=== PATIENT | female | born 1950 | race Caucasian/White ===

== ENCOUNTER 2025-04-07 08:29 | Outpatient (REF) | payer MEDICARE, SELFPAY ==
--- OUTSIDE RECORDS SUMMARY | 2024-12-08 09:15 | XMS_ITS ---
Author Organization Felicitas Mckeon MD Address [address] [phone] Care Team Providers Care Fast Food Restaurant Manager Name Role Phone Felicitas Mckeon Primary Care Provider REASON FOR VISIT 2m f/u MOCA Encounters Encounter Location Date Provider Diagnosis Felicitas Mckeon MD [address] [place] [address] [place] [phone] 12/08/2024 Felicitas Mckeon Plan Of Treatment Next Appt Details Provider Name:Felicitas Mckeon , 06/07/2025 01:30:00 PM, [address] [place] [address], [phone], Provider Name:Felicitas Mckeon , 06/29/2025 02:00:00 PM, [address] [place] [address], [phone], Provider Name:Felicitas Mckeon , 09/27/2025 01:00:00 PM, [address] [place] [address], [phone], Progress Notes * Bella OSEGUERAB:1950 ( 74 yo F)Acc No.[id number]:12/08/2024 Patient: Amanda PEREZ Provider: Heather Mckeon MD :1950 A ge:74 Y S ex:Female Date:12/08/2024 Address:[address] [place], [place] [id number] Subjective: * Chief Complaints: * 1 . [...] Electronic signature of Dorothy Mckeon MD on 04/08/2025 at 08:56 AM EST Sign off status: Pending * Provider: Heather Mckeon MD Date: 0 12/08/2024 Generated for Teo newman/Judah/Rocco on: 06/08/2024 08:56 AM EST
--- NOTE | ~2025-04-07 | XR_ITS ---
EXAMINATION: X-ray bilateral knees CLINICAL INFORMATION: Pain COMPARISON: None TECHNIQUE: Bilateral knees each 3 views FINDINGS: Right knee: Bone mineralization is decreased. Mild-moderate medial compartment arthritis. No visible acute fracture, dislocation or suspicious bony lesion. Small effusion. Left knee: Bone mineralization is decreased. Mild/moderate medial compartment arthritis. No visible acute fracture, dislocation or suspicious bony lesion. Small suprapatellar joint fluid. No abnormal soft tissue calcification. XR/XR Knee Elder 3V IMPRESSION: Right knee: Mild-moderate medial compartment arthritis Left knee: Mild-moderate medial compartment arthritis Electronically signed by: Jovi Sawyer MD 04/08/2025 11:50 AM EST
--- OUTSIDE RECORDS SUMMARY | 2025-04-08 08:55 | XMS_ITS | Patient Health Record ---
Author Organization [facility] Address [address] [place] [phone] Care Team Providers Care Scrap Drop Engineer Name Role Phone LEONIE HERNANDEZ MD Primary Care Provider Unavail able Susan Mendoza Unavailable [phone] Allergies Allergen (clinical drug ingredient) Drug/Non Drug Allergy documented on EMR Reaction Allergy Type Onset Date Status Substance with sulfonamide structure and antibacterial mechanism of action (substance) SULFA (uncoded) Unknown Allergy Active Reason For Referral No Information Medications Medication SIG (Take, Route, Frequency, Duration) Notes Start Date End Date Status Metoprolol Succinate ER 25 MG ER 1 ORAL daily; Duration: -3 [facility] 10/06/2012 Active Fish Oil 1200MG 1 ORAL daily; Durati on: [facility] 10/06/2012 Active Lisinopril 2.5MG 1 ORAL daily; Durati on: - [facility] 10/06/2012 Active Vitamin B12 100 MCG Orally Active ALPRAZolam 0.50MG 1 ORAL twice daily; Duration: 10 [facility] 10/06/2012 Active Estrace 0.1 MG/GM 1 GRAM Vaginal TWICE A WEEK; Duration: 365 days For PE's 10/07/2014 Active Aspirin EC 81MG 1 ORAL daily; Durati on: - [facility] 10/06/2012 Active Wellbutrin XL 1 tablet in the morn ing Orally Once a day Active PARoxetine HCl 20 MG 1 tablet in the mor rayna Orally Once a day Active Cinnamon 500 MG 2 Orally DAILY Active Atorvastatin Calcium 80 MG 1 tablet Oral ly Once a day Active Vitamin C 500MG 1 ORAL twice daily; Duration: -3 [facility] 10/06/2012 Active Milk Thistle 1000 MG Orally Active Vitamin D3 1000 IU ORAL daily; Duration : - [facility] 10/06/2012 Active Turmeric Curcumin 500 MG Orally Active Multivitamins 1 ORAL daily; Durati on: -3 [facility] 10/06/2012 Active Rosuvastatin Calcium 20 MG 1 tablet Oral ly Once a day Active NexIUM 50 MG 1 ORAL prn [facility] 10/06/2012 Activ e Super B Complex Acti ve buPROPion HCl ER (SR) 200 MG 1 tablet Orally Twice a day Active Problems Problem Type SNOMED Code ICD Code Onset Dates Problem Status W/U Status Risk Notes Problem Postmenopausal atrophic vaginitis (09787133) Postmenopausal atrophic vaginitis (N95.2) Active confirmed Problem Age-related osteoporosis (372737499) Age-related osteoporosis without current pathological fracture (M81.0) Active confirmed Problem Hyperlipidemia (60903191) Other and unspecified hyperlipidemia (272.4) Active confirmed Major Problem Depressive disorder (99364055) Depressive disorder, not elsewhere classified (311) Active confirmed Major Problem Benign essential hypertension (9641000) Essential hypertension, benign (401.1) Active confirmed Major Problem Acute myocardial infarction (disorder) (83851126) Acute myocardial infarction, unspecified site (410.9) Active confirmed Diag Problem Chronic ischemic heart disease (668876806) Unspecified chronic ischemic heart disease (414.9) Active confirmed Major Problem Osteoporosis (42968887) Unspecified osteoporosis (733.00) Active confirmed Diag Problem Gynecological examination normal (315918448204577) Routine gynecological examination (V72.31) Active confirmed Problem Screening for malignant neoplasm of colon (913376474) Special screening for malignant neoplasms, colon (V76.51) [...] MEDICARE [address] [place] [id number] [phone] [id number] SHARON TRINIDAD Self - patient is the insured [employer] [address] [place] [address] [phone] [id number] SHARON TRINIDAD Self - patient is the insured Medical (General) History Medical History History ICD Code Acute myocardial infarction, unspecified site 410.9 Unspecified osteoporosis 733.00 Unspecified chronic ischemic heart disea se 414.9 Depressive disorder, not elsewhere class ified 311 Other and unspecified hyperlipidemia 272 .4 Essential hypertension, benign 401.1 Surgical History Surgery Date(Month/Year) Cholecystectomy Colonoscopy Colon Resection Right Ankle Fracture [place] [facility] Hospitalization History Reason Date(Month/Year) See Surgical Hx
--- OUTSIDE RECORDS SUMMARY | 2025-04-08 08:55 | XMS_ITS | Clinical Summary ---
Author Organization [facility] Address [address] [place] [address] Phone Care Team Providers Care Fertilizing Machine Operator Name Role Phone Felicitas Mckeon MD Primary Care Provider [phone] Surgical History Surgery Date Site/Laterality Comments ANKLE FRACTURE SURGERY PROCEDURE:ANKLE FRACTURE SURGERY CHOLECYSTECTOMY PROCEDURE:CHOLECYSTECTOMY Medical History Medical History Date Comments Diabetes mellitus (CMS/HCC V24, CMS/HCC V28) DX:Diabetes mellitus (HCC) Heart disease DX:Heart disease Hypertension DX:Hypertension Osteoporosis DX:Osteoporosis Diverticulitis DX:Diverticuliti s Family History Medical History Relation Name Comments Hyperlipidemia Brother Hypertension Brother Heart disease Father Hyperlipidemia Father Hypertension Father Heart disease Mother Hyperlipidemia Mother Hypertension Mother Breast cancer Niece Relation Name Status Comments Brother Father Mother Niece Alive Social History Tobacco Use Types Packs/Day Years Used Date Smoking Tobacco: Never Smokeless Tobacco: Never Alcohol Use Standard Drinks/Week Comments No 0 (1 standard drink = 0.6 oz pur e alcohol) Comments No Sex and Gender Information Value Date Recorded Sex Assigned at Not on file Legal Sex Female 11:34 PM EST Gender Identity Not on file Sexual Orientation Not on file Obstetrics History Last Filed Vital Signs Vital Sign Reading Time Taken Comments Blood Pressure - - Pulse - - Temperature - - Respiratory Rate - - Oxygen Saturation - - Inhaled Oxygen Concentration - - Weight 74.8 kg (165 lb) 04/23/2024 2:39 PM EST Height 154.9 cm (5' 1 ) 04/23/2024 2:39 PM EST Body Mass Index 31.18 04/23/2024 2:39 PM EST Plan of Treatment Health Maintenance Due Date Last Done Comments Colorectal Cancer Screening: Colonoscopy 1950 DTaP,Tdap,and Td Vaccines (1 - Tdap) 1969 Zoster Vaccines (1 of 2) 2000 Falls Risk Assessment 05/06/2022 Hepatitis C Screening 05/06/2022 Medicare Annual Wellness Visit 05/06/2022 Social Influencers of Health Screening 05/06/2022 Depression Screening 06/03/2024 COVID-19 Vaccine ( season) 2025 03/07/2023, 03/16/2022, 10/09/2021, Additional history exists Influenza Vaccine (#1) 2025 , 03/07/2023, 03/16/2022, Additional history exists Breast Cancer Screening 04/23/2026 04/23/20 24, 01/08/2023, 10/04/2021, Additional history exists Osteoporosis Screening (Bone Density Screening) 04/23/2034 04/23/2024, 12/26/2021, 12/25/2019, Additional history exists Pneumococcal Vaccine: 50+ Years Completed 05/10/2023 RSV Immunization Adult Patients Completed 05/10/2023 HIB Vaccines Aged Out No longer eligi ble based on patient's age to complete this topic HPV Vaccines Aged Out No longer eligi ble based on patient's age to complete this topic Hepatitis A Vaccines Aged Out No long er eligible based on patient's age to complete this topic Hepatitis B Vaccines Aged Out No long er eligible based on patient's age to complete this topic IPV Vaccines Aged Out No longer eligi ble based on patient's age to complete this topic MMR Vaccines Aged Out No longer eligi ble based on patient's age to complete this topic Meningococcal ACWY Vaccine Aged Out N o longer eligible based on patient's age to complete this topic Meningococcal B Vaccine Aged Out No l onger eligible based on patient's age to complete this topic RSV Immunization Patients Under 20 months Aged Out No longer eligible based on patient's age to complete this topic Varicella Vaccines Aged Out No longer eligible based on patient's age to complete this topic Procedures Procedure Name Priority Date/Time Associated Diagnosis Comments MG MAMMO DIGITAL SCREENING W NOE BILAT Routine 04/23/2024 3:00 PM EST Encounter for screening mammogram for breast cancer BD BONE DENSITY DXA AXIAL SKELETON Routine 04/23/2024 2:38 PM EST Osteoporosis screening from Last 3 Months or Most Recently Relevant to Health Maintenance Results * MG Mammo Digital Screening w Noe bilat (04/23/2024 3:00 PM EST) Anatomical Region Laterality Modality Breast Bilateral Mammography 04/23/2024 5:32 PM EST Impressions 04/23/2024 5:37 PM EST No mammographic evidence of malignancy. No suspicious [...] Signed Date: 04/23/2024 17:37 ET Workstation ID: [id number] Transcribed By: Self Edit Transcribed Date: 04/23/2024 17:32 ET Narrative 04/23/2024 5:37 PM EST EXAM: SCREENING MAMMOGRAPHY, BILATERAL HISTORY: SCREENING. No additional history. COMPARISON: 01/08/2023, 10/04/2021, 12/17/2019 TECHNIQUE: Synthesized CC and MLO projections of each breast. Tomosynthesis of each breast in the CC and MLO projections. ADDITIONAL IMAGING: None Computer-aided detection was employed with the iCAD profound AI 3-D. TISSUE DENSITY: There are scattered areas of fibroglandular density. (BI-RADS category B) FINDINGS: RIGHT BREAST: No suspicious mass. No suspicious calcification. No distortion. No additional suspicious right breast findings LEFT BREAST: No suspicious mass. No suspicious calcification. No distortion. No additional suspicious left breast findings Procedure Note Ervin Nicole MD - 04/23/2024 EXAM: SCREENING MAMMOGRAPHY, BILATERAL HISTORY: SCREENING. No additional history. COMPARISON: 01/08/2023, 10/04/2021, 12/17/2019 TECHNIQUE: Synthesized CC and MLO projections of each breast.Tomosynthesis of each breast in the CC and MLO projections. ADDITIONAL IMAGING: None Computer-aided detection was employed with the iCAD profound AI 3-D. TISSUE DENSITY: There are scattered areas of fibroglandular density.(BI-RADS category B) FINDINGS: RIGHT BREAST: No suspicious mass. No suspicious calcification. No distortion. Noadditional suspicious right breast findings LEFT BREAST: No suspicious mass. No suspicious calcification. No distortion. Noadditional suspicious left breast findings IMPRESSION: No mammographic evidence of malignancy. No suspicious interval change. A negative mammogram in the presence of a clinically suspicious palpableabnormality does not preclude the possibility of malignancy or alter theindications for biopsy. ASSESSMENT: BI-RADS 1: NEGATIVE RECOMMENDATION(S): 1: Routine screening mammogram BILATERAL in 1 year. -------- FINAL REPORT -------- Dictated By: Ervin Nicole Dictated Date: 04/23/2024 17:32 ET Assigned Physician: Ervin Nicole Reviewed and Electronically Signed By: Ervin Nicole Signed Date: 04/23/2024 17:37 ET Workstation ID: [id number] Transcribed By: Self Edit Transcribed Date: 04/23/2024 17:32 ET us Felicitas Mckeon MD IMG BI PROCEDURES Final Result * BD Bone Density DXA Axial Skeleton (04/23/2024 2:38 PM EST) Anatomical Region Laterality Modality Wrist, Hip, L-spine Bone Densito metry 04/24/2024 7:28 AM EST Impressions 04/24/2024 7:30 AM EST 1. Osteoporosis. There has been a decrease [...] probability of hip fracture of 6.7%. Code [address]74 [facility] Teleradiology -------- FINAL REPORT -------- Dictated By: Frederick Carson Dictated Date: 04/24/2024 07:28 ET Assigned Physician: Frederick Carson Reviewed and Electronically Signed By: Frederick Carson Signed Date: 04/24/2024 07:30 ET Workstation ID: [id number] Transcribed By: Self Edit Transcribed Date: 04/24/2024 07:28 ET Narrative 04/24/2024 7:30 AM EST HISTORY: The patient is a 73-year-old postmenopausal [...] that of the left femoral neck is -2.9 which is diagnostic of osteoporosis. Procedure Note Frederick Carson MD - 04/24/2024 HISTORY: The patient is a 73-year-old postmenopausal female with clinicalconcern for metabolic bone disease. FINDINGS: Dual energy x-ray absorptiometry of the lumbar spine and femursis performed. The mean bone mineral density at L1-2 is 0.927 gm/cm2 whichis 80% of that of young normals and 93% of that of age matched controls.This yields a T-score of -2.0 and a Z-score of -0.6 which is diagnostic ofosteopenia. The mean bone mineral density of the femurs bilaterally is 0.794 gm/nl0pdfct is 79% of that of young normals and 96% of that of age matchedcontrols. This yields a T-score of -1.7 and a Z-score of -0.3 which isdiagnostic of osteopenia. However, the T-score of the right femoral neckis -2.5 and that of the left femoral neck is - 2.9 which is diagnostic ofosteoporosis. IMPRESSION: 1. Osteoporosis. There has been a decrease of 4.4% in bone mineraldensity in the lumbar spine since the prior examination of 12/26/2021.There has been decrease of 1.1% in bone mineral density in the right femurand a decrease of 3.7% in bone mineral density in the left femur. 2. FRAX analysis yields a 10-year probability of major osteoporoticfracture of 23.4% and a 10-year probability of hip fracture of 6.7%. Code [address] CT Teleradiology -------- FINAL REPORT -------- Dictated By: Frederick Carson Dictated Date: 04/24/2024 07:28 ET Assigned Physician: Frederick Carson Reviewed and Electronically Signed By: Frederick Carson Signed Date: 04/24/2024 07:30 ET Workstation ID: [id number] Transcribed By: Self Edit Transcribed Date: 04/24/2024 07:28 ET Felicitas Mckeon MD IM DXA PROCEDURES Final Resul t from Last 3 Months or Most Recently Relevant to Health Maintenance Insurance MEDICARE [facility] Care Teams Fertilizing Machine Operator Relationship Specialty Start Date End Date Felicitas Mckeon MD [address] [address] PCP - General Internal Medicine 04/21/24
--- OUTSIDE RECORDS SUMMARY | 2025-04-08 08:56 | XMS_ITS | Patient Health Record ---
Author Organization [facility] Address [address] [place] [address] [phone] Care Team Providers Care Sfdc Solution Architect Name Role Phone [facility] Mc[facility] Primary Care Provider Julianna Tracy Unavailable [phone] Allergies Allergen (clinical drug ingredient) Drug/Non Drug Allergy documented on EMR Reaction Allergy Type Onset Date Status Substance with sulfonamide structure and antibacterial mechanism of action (substance) Sulfa Antibiotics Unknown Drug Allergy Active Results Component Value Reference Range Notes Phosphatidylethanol (PEth)-7 28503 Reviewed date:10/01/2024 06:16:45 PM Interpretation: Performing Lab:[facility], [address] [place] [address], [place], Phone - [phone], Director - Aneesh Notes/Report: Test(s) 161648-Wrajinycncq, Total; 739131-Efeiytimebchg; 371764-XQG-V was developed and its performance characteristics determined by [facility]. It has not been cleared or approved by the Food and Drug Administration. PHOSPHATIDYLETHANOL Negative Phosphatidylethanol (PEth) Negative Analyzed compound: PEth 16:0/18:1. 4-mrwykzqhv-6-oleoyl-sn-g spilwi-6-nrqoeofgyitlpa. Analysis performed by Liquid Chromatography with Tandem [...] developed and its performance characteristics determined by [facility]. It has not been cleared or approved by the Food and Drug Administration. Comp. Metabolic Panel (14)-3 52041 Reviewed date:10/01/2024 06:16:45 PM Interpretation: Performing Lab:[facility] [place], [address], [place], Phone - [phone], Director - WVAydin Notes/Report: Test(s) 488017-Qbevwealcrh, Total; 680692-Gmlbwnzkyukag; 761655-YKK-R was developed and its performance characteristics determined by [facility]. It has not been cleared or approved [...] ALT (SGPT) 21 0-32 IU/L Albumin/Creatinine Ratio,Uri ne-206723 Reviewed date:10/01/2024 06:16:45 PM Interpretation: Performing Lab:[facility] [place], [address], [place], Phone - [phone], Director - Aneesh Notes/Report: Test(s) 936140-Hfsdtquhrzh, Total; 225234-Bsvndgwharoor; 902265-FBM-M was developed and its performance characteristics determined by [facility]. It has not been cleared or approved by the Food and Drug Administration. Creatinine, Urine 60.5 Not Estab. mg/dL Albumin, Urine <3.0 Not Estab. ug/mL Alb/Creat Ratio <5 0-29 mg/g creat Normal: 0 - 29 Moderately increased: 30 - 300 Severely increased: >300 Lipid Panel+ApoB-704055 Reviewed date:10/01/2024 06:16:45 PM Interpretation: Performing Lab:[facility] [place], [address] [place] [address], Phone - [phone], Director - [facility] Notes/Report: Test(s) 128806-Qgdomqzhtjz, Total; 805365-Fzmrhcdprodpt; 920482-AGJ-A was developed and its performance characteristics determined by [employer]. It has not been cleared or approved [...] Risk <90 Moderate Risk <90 Vitamin D, 60-Rkzollj-436611 Reviewed date:10/01/2024 06:16:45 PM Interpretation: Performing Lab:[facility] [place], [address] [facility], [place], Phone - [phone], Director - [facility] Notes/Report: Test(s) 257886-Viotydabrxp, Total; 517994-Jcwoogafwaviq; 453612-HTX-R was developed and its performance characteristics determined by [employer]. It has not been cleared or approved by the Food and Drug Administration. Vitamin D, 25-Hydroxy 68.2 30.0-100.0 ng/mL Vitamin D deficiency has been defined by the [place] [employer] and an Endocrine Society practice guideline as a level of serum 25-OH vitamin D less than 20 ng/mL (1,2). The Endocrine Society went on to further define vitamin D insufficiency as a level between 21 and 29 ng/mL (2). 1. IOM ([place] [employer]). 2010. Dietary reference intakes for calcium and D. [place]: The National Academies Press. 2. Jennifer MF, Dalia NC, Frank BISWAS, et al. Evaluation, treatment, and prevention of vitamin D deficiency: an Endocrine Society clinical practice guideline. JCEM. 2010; 96(7):1911-30. CBC With Differential/Platel et-521147 Reviewed date:10/01/2024 06:16:45 PM Interpretation: Performing Lab:[facility] [place], [address] [place] [address] Avenue, [place], Phone - [phone], Director - Aneesh Notes/Report: Test(s) 475345-Gydjynvjhpc, Total; 960275-Iztiduuaizuyt; 967783-CCJ-U was developed and its performance characteristics determined by [facility]. It has not been cleared or approved [...] Immature Grans (Abs) 0.0 0.0-0.1 x10E3/uL Urinalysis, Complete-896185 Reviewed date:10/01/2024 06:16:44 PM Interpretation: Performing Lab:[facility] [place], [address] [facility], [place], Phone - [phone], Director - Aneesh Notes/Report: Test(s) 998158-Sszapxyhmax, Total; 180603-Sjwcmyerhoadg; 449402-UNB-A was developed and its performance characteristics determined by [facility]. It has not been cleared or approved by the Food and Drug Administration. Test(s) 608434-Bbbljqqthxa, Total; 382448-Fwxsejntcdmmy; 082450-LGC-U was developed and its performance characteristics determined by [facility]. It has not been cleared or approved by the Food and Drug Administration. Specific [place] 1.026 1.005-1.030 pH 6.0 5.0-7.5 Urine-Color Yellow [...] 03:03:57 PM Interpretation: Performing Lab: Notes/Report: [facility] ([facility]), [facility] Lot: [id number] Respiratory Panel w/ SARS-Co V2-253980 Reviewed date:07/31/2024 07:09:41 AM Interpretation: Performing Lab:[facility] [place], [address] [facility] [place], [place], Phone - [phone], Director - Aneesh Notes/Report: Clinical Information:SRC: Adenovirus [...] Detected Mycoplasma pneumoniae Not Detected Not Detected IMGEAP Reviewed date:07/27/2024 09:17:04 PM Interpretation: Performing Lab: Notes/Report: See Note [facility], a member of [facility] XR CHEST 2 VIEWS INDICATION: Pain [...] Signed Date: 07/27/2024 10:19 ET Workstation ID: [id number] Transcribed By: Self Edit Transcribed Date: 07/27/2024 10:19 ET CR Chest Routine 2 Views Reviewed date:07/27/2024 02:49:44 PM Interpretation: Performing Lab: Notes/Report: Hemoglobin A1C Reviewed date:06/29/2024 06:23:00 PM Interpretation: Performing Lab: Notes/Report: [facility] [place] ([facility]), Felicitas Mckeon MD Lot: [id number] Urinalysis, Complete-795525 Reviewed date:07/01/2024 05:09:37 PM Interpretation: Performing Lab:[facility] [place], [address] [address], [place], Phone - [phone], Director - Aneesh Notes/Report: Specific [place] 1.021 1.005-1.030 pH 6.0 5.0-7.5 Urine-Color Yellow [...] Bacteria None seen None seen/Few Vitamin D, 26-Vlqgybx-528742 Reviewed date:07/01/2024 05:09:37 PM Interpretation: Performing Lab:[facility] [place], [address] [place] [address], Phone - [phone], Director - Aneesh Notes/Report: Vitamin D, 25-Hydroxy 45.1 30.0-100.0 ng/mL Vitamin D deficiency has been defined by the [place] and an Endocrine Society practice guideline as a level of serum 25-OH vitamin D less than 20 ng/mL (1,2). The Endocrine Society went on to further define vitamin D insufficiency as a level between 21 and 29 ng/mL (2). 1. IOM ([place] [employer]). 2010. Dietary reference intakes for calcium and D. [place]: The National Academies Press. 2. Jennifer MF, Dalia NC, Frank BISWAS, et al. Evaluation, treatment, and prevention of vitamin D deficiency: an Endocrine Society clinical practice guideline. JCEM. 2010; 96(7):1911-30. Albumin/Creatinine Ratio,Uri ne-654933 Reviewed date:07/01/2024 05:09:37 PM Interpretation: Performing Lab:[facility] [place], [address] [place] [address], Phone - [phone], Director - Aneesh Notes/Report: Creatinine, Urine 42.4 Not Estab. mg/dL Albumin, Urine <3.0 Not Estab. ug/mL Alb/Creat Ratio <7 0-29 mg/g creat Normal: 0 - 29 Moderately increased: 30 - 300 Severely increased: >300 Comp. Metabolic Panel (14)-3 Reviewed date:07/01/2024 05:09:37 PM Interpretation: Performing Lab:[facility] [place], [address] [place] [address], [place], Phone - [phone], Director - Aneesh Notes/Report: Glucose 86 70-99 [...] IU/L ALT (SGPT) 23 0-32 IU/L LP+Non-HDL Cholesterol-02608 5 Reviewed date:07/01/2024 05:09:37 PM Interpretation: Performing Lab:[facility], [address] [facility], Phone - [phone], Director - MDJodry Notes/Report: Cholesterol, Total 115 100-199 mg/dL Triglycerides 280 0-149 mg/dL HDL Cholesterol 37 >39 mg/dL VLDL Cholesterol Austyn 42 5-40 mg/dL LDL Chol Calc (NIH) 36 0-99 mg/dL Non-HDL Cholesterol 78 0-129 mg/dL US Elastography Parenchyma Reviewed date:11/12/2024 04:09:54 PM Interpretation: Performing Lab: Notes/Report: HCV Antibody-292108 Reviewed date:10/01/2024 06:16:45 PM Interpretation: Performing Lab:[facility], [address] [facility] [place], [place], Phone - [phone], Director - MDJodry Notes/Report: Test(s) 891672-Nfetsrrjtru, Total; 963172-Bbfmyarmvbbef; 494322-EAD-D was developed and its performance characteristics determined by [employer]. It has not been cleared or approved by the Food and Drug Administration. Hep C Virus Ab Non Reactive Non Reactive HCV antibody alone does not differentiate between previously resolved infection and active infection. Equivocal and Reactive HCV antibody results should be followed up with an HCV RNA test to support the diagnosis of active HCV infection. IMGEAP Reviewed date:04/29/2024 03:48:16 PM Interpretation: Performing Lab: Notes/Report: See Note [facility], a member of [employer] EXAM: SCREENING MAMMOGRAPHY, BILATERAL HISTORY: SCREENING. No additional history. COMPARISON: 01/08/2023, 10/04/2021, 12/17/2019 TECHNIQUE: Synthesized CC and MLO projections of each breast. Tomosynthesis of each breast in the CC and MLO projections. ADDITIONAL IMAGING: None Computer-aided detection was employed with the [place] [employer] AI 3-D. TISSUE DENSITY: There are scattered [...] Signed Date: 04/23/2024 17:37 ET Workstation ID: [id number] Transcribed By: Self Edit Transcribed Date: 04/23/2024 17:32 ET IMJOCELYNN Reviewed date:04/29/2024 03:48:16 PM Interpretation: Performing Lab: Notes/Report: See Note [facility], a member of [employer] HISTORY: The patient is a 73-year-old postmenopausal [...] probability of hip fracture of 6.7%. Code 69921 CT Teleradiology -------- FINAL REPORT -------- Dictated By: Frederick Carson Dictated Date: 04/24/2024 07:28 ET Assigned Physician: Frederick Carson Reviewed and Electronically Signed By: Frederick Carson Signed Date: 04/24/2024 07:30 ET Workstation ID: [id number] Transcribed By: Self Edit Transcribed Date: 04/24/2024 07:28 ET KGMM-HET1-ZSV, RSV, FLU A AN D B QUALITATIVE RT-PCR Reviewed date:07/27/2024 09:17:04 PM Interpretation: Performing Lab: Notes/Report: SARS COV-2 Not Detected Not Detected Disclaimer: The manner in which this information is used to guide patient care is the responsibility of the healthcare provider. Testing was performed using the dreamsha.re Alinity m SARS-CoV-2 test. This test has [...] Healthcare Providers can be found at: https://www.fda.gov/media /822875/download Fact sheet for Patients can be found at: https://www.fda.gov/media /945529/download Influenza A PCR Detected Not Detected This patient is positive for influenza A. If the patient is admitted, please order the Respiratory Virus Panel PCR (Epic ID: [id number]) so our lab can subtype the influenza A, per CDC recommendations. Influenza B PCR Not Detected Not Detected RSV PCR Not Detected Not Detected US ELASTOGRAPHY PARENCHYMA Reviewed date:09/08/2024 06:55:02 PM Interpretation: Performing Lab: Notes/Report: See Note [facility], a member of [facility] EXAMINATION: HEPATIC ELASTOGRAPHY CLINICAL INFORMATION: Nonalcoholic steatohepatitis [...] Date: 09/08/2024 09:43 ET Assigned Physician: Ervin Niocle Reviewed and Electronically Signed By: Ervin Nicole Signed Date: 09/08/2024 09:47 ET Workstation ID: [id number] Transcribed By: Self Edit Transcribed Date: 09/08/2024 09:43 ET XR Knee Right Reviewed date:12/11/2024 03:19:33 PM [...] and Electronically Signed by: Stanislaw Carey M.D. Hemoglobin A1C Reviewed date:03/05/2025 01:41:25 PM Interpretation: Performing Lab: Notes/Report: [facility] [place] ([facility]), Felicitas Mckeon MD Lot: [id number] Vitamin D, 80-Frebncp-739240 Reviewed date:03/09/2025 06:45:35 PM Interpretation: Performing Lab:[facility] [place], [address] [place] [address], [place], Phone - [phone], Director - Aneesh Notes/Report: Vitamin D, 25-Hydroxy 47.7 30.0-100.0 ng/mL Vitamin D deficiency has been defined by the [place] and an Endocrine Society practice guideline as a level of serum 25-OH vitamin D less than 20 ng/mL (1,2). The Endocrine Society went on to further define vitamin D insufficiency as a level between 21 and 29 ng/mL (2). 1. IOM ([place] [employer]). 2010. Dietary reference intakes for calcium and D. [place]: The National Academies Press. 2. Jennifer MF, Dalia NC, Frank BISWAS, et al. Evaluation, treatment, and prevention of vitamin D deficiency: an Endocrine Society clinical practice guideline. JCEM. 2010; 96(7):1911-30. Comp. Metabolic Panel (14)-3 66165 Reviewed date:03/09/2025 06:45:35 PM Interpretation: Performing Lab:[facility], [facility], Phone - [phone], Director - MDLitoy Notes/Report: Glucose 111 70-99 mg/dL BUN 14 [...] 0-40 IU/L ALT (SGPT) 24 0-32 IU/L LP+Non-HDL Cholesterol-26745 5 Reviewed date:03/09/2025 06:45:36 PM Interpretation: Performing Lab:[facility], [address] [facility], Phone - [phone], Director - MDRadhadry Notes/Report: Cholesterol, Total 96 100-199 mg/dL Triglycerides 257 0-149 mg/dL HDL Cholesterol 37 >39 mg/dL VLDL Cholesterol Austyn 38 5-40 mg/dL LDL Chol Calc (NIH) 21 0-99 mg/dL Non-HDL Cholesterol 59 0-129 mg/dL Phosphatidylethanol (PEth)-7 79022 Reviewed date:03/09/2025 06:45:36 PM Interpretation: Performing Lab:[facility], [facility], Phone - [phone], [facility] Notes/Report: PHOSPHATIDYLETHANOL Negative Phosphatidylethanol (PEth) Negative Analyzed compound: PEth 16:0/18:1. 8-veoborjea-9-oleoyl-sn-g yvwmjh-0-bvfeybrfrlvfww. Analysis performed by Liquid Chromatography with Tandem [...] developed and its performance characteristics determined by [facility]. It has not been cleared or approved by the Food and Drug Administration. Vitamin X11-174625 Reviewed date:12/18/2024 03:59:32 PM Interpretation: Performing Lab:[facility], [facility] [address], Phone - [phone], Director [facility] Notes/Report: Test(s) 635870-e-fat765 was developed and its performance characteristics determined by [facility]. It has not been cleared or approved by the Food and Drug Administration. Vitamin B12 9702 416-7920 pg/mL TSH-277428 Reviewed date:12/18/2024 03:59:32 PM Interpretation: Performing Lab:[facility], [facility] [address], Phone - [phone], Director - [facility] Notes/Report: Test(s) 063810-q-jfh400 was developed and its performance characteristics determined by [facility]. It has not been cleared or approved by the Food and Drug Administration. TSH 1.990 0.450-4.500 uIU/mL APOE Alzheimer's Risk-868731 Reviewed date:12/18/2024 03:59:32 PM Interpretation: Performing Lab:[facility], [facility] [address], [place], Phone - [phone], [facility] Notes/Report: Test(s) 973285-r-wvf666 was developed and its performance characteristics determined by [facility]. It has not been cleared or approved by the Food and Drug Administration. Methodology: Patient DNA is assayed for the APOE genotype by PCR amplification of a specific region in exon 4 of the APOE gene followed by digestion with restriction enzyme Chain Mender I and separation of fragments by polyacrylamide [...] For inquiries or genetic consultation, please call [facility] at . Comment: INFORMATION ABOUT THE APOE [...] the APOE4 variant and by approximately 10 ub99-vbcj for individuals with two copies of this [...] developed and its performance characteristics determined by [facility]. It has not been cleared or approved by the Food and Drug Administration. The FDA has determined that such clearance or approval is not necessary. REFERENCES Frannie Romero et al. Sex modifies the APOE-related risk of developing Alzheimer disease. Annal Neurol 2014;75(4):563-573 Ramiro VILLANUEVA. Alzheimer Disease Overview. Stayzilla (internet). Alec RA et al., editors. [facility]: [facility], [place], [place]. Last revised 2014. Yola JS et al. Genetic counseling and testing for Alzheimer disease: Joint practice guidelines of the [place] [employer] Genetics and the National Society of Genetic Counselors. Sandra in Med 2011;13(7)593-60. Rafal CROFT. Apolipoprotein E: Implications for AD neurobiology, epidemiology and risk assessment. Neurobiology of Aging 2011;32:778-790 [facility] Informed Consent Fo Reviewed date:12/18/2024 03:59:32 PM Interpretation: Performing Lab:[facility], [address], [place], Phone - [phone], Director - [facility] Notes/Report: [facility] Informed Consent Form [facility] Informed Consent Form 02 Please Fax back to [phone]. Many states require laboratories to have documentation [...] of the sample when testing is complete. [facility] did not receive any documentation of informed consent for above mentioned patient and ordered tests. Please check the statement applicable to this patient and sign below so that [facility] may release the results for this patient. . [] I authorize and confirm patient consent for the above mentioned genetic test(s). . [] I have provided appropriate informed consent for the above mentioned test(s) and documentation of this consent is maintained in the patient record. . . Health care provider signature _Date . Printed name __ . Fax back to [facility] at [phone] . [facility] Phosphorylated Tau 217 (pTau -217) Reviewed date:12/18/2024 03:59:32 PM Interpretation: Performing Lab:[facility], [address], [facility] - [phone], Director - [facility] Notes/Report: Test(s) 434035-a-boj126 was developed and its performance characteristics determined by [facility]. It has not been cleared or approved by the Food and Drug Administration. p-jwl670 0.20 0.00-0.18 pg/mL Clinical cutoff value was established using samples from a patient cohort characterized with amyloid PET data. A p-sfg221 value of >0.18 is a reported surrogate marker for beta amyloid pathology, and can be used to facilitate biological identification of Alzheimer's disease (1). p-ior522 has also been used in clinical trials to monitor patients on anti-amyloid therapy (2,3). Test performed by [employer] chemiluminescent enzyme immunoassay (CLEIA). Values obtained with different methods cannot be used interchangeably. The validated limit of quantification is 0.06 pg/mL. Assay detection limit is 0.03 pg/mL. Footnotes 1. Armando Silva, et al. Diagnostic Accuracy of a Plasma Phosphorylated Tau 217 Immunoassay for Alzheimer Disease Pathology. [facility] neurology (2023). 2. Armando Silva, et al. Differential roles of A42/40, p-knl307 and p-flo327 for Alzheimer's trial selection and disease monitoring. Nature medicine 28.12 (2021): 7837-7074. 3. Sean CLINTON, Myesha M, Kassi SC, et al. Association of [place] Treatment With Exploratory Plasma Biomarkers in Early Symptomatic Alzheimer Disease: A Secondary Analysis of the TRAILBLAZER-ALZ Randomized Clinical Trial . [facility] Neurol. 2021;79(12):6886-8192. MR Brain Reviewed date:12/24/2024 08:22:46 AM Interpretation: [...] and Electronically Signed by: Gilbert Srivastava M.D. XR KNEE 3 VIEWS RIGHT Reviewed date:12/14/2024 01:17:38 PM Interpretation: Performing Lab: Notes/Report: PET CT, Brain Amyloid Reviewed date:03/05/2025 01:41:25 PM Interpretation: Performing Lab: Notes/Report: Eye Exam Reviewed date:03/05/2025 01:41:25 PM Interpretation: Performing Lab: Notes/Report: Reason For Referral No Information Medications Medication [...] Active Super B Complex Acti ve Biotin 57321 MCG as directed Orally Active Glucosamine Chond Complex/MSM Active Vitamin B12 1000 MCG 1 tablet Orally Onc e a day; Duration: 30 day(s) Active Pantoprazole Sodium 40 MG 1 tablet Orally Once a day; Duration: 90 days 08/06/2023 Active Metoprolol Succinate ER 25 MG TAKE ONE TABLET BY MOUTH EVERY DAY; Duration: 90 Active Immunizations Vaccine Route Administration Date Status Comme nts *Influenza, High Dose Seasonal, Quadrivatent Unknown 03/07/2023 Administered *Fxcqxtdiw-Jyuzhbh-Nzdx Dose-65+ IM Intramuscular 04/01/2024 Administered *Vkcdthxsl-Clnypap-Owlb Dose-65+ IM Intramuscular 03/03/2025 Administered *Influenza-Medicare-AS IM Intramuscular 04/14/2019 Adminis tered *Pneumococcal polysaccharide PPV23 IM Intramuscular 03/25/2017 Administered *PREVNAR 20 Unknown 05/10/2023 Administered COVID 19 (Pfizer 12+) Unknown 10/09/2021 Administered COVID COMIRNATY Pfizer Unknown 03/07/2023 Administered COVID-19 Pfizer BiValent Booster Unknown 03/16/2022 Administered HGPKQ-27-Spnzdw Vaccine Unknown 07/13/2020 Administered BJAWB-94-Dyendw Vaccine Unknown 08/03/2020 Administered KAJFR-87-Pyzyzg Vaccine Unknown 03/09/2021 Administered Influenza IM Intramuscular 06/22/2016 Administered Influenza (Fluad) Unknown 03/14/2021 Administered Influenza (Fluad) Unknown 03/16/2022 Administered Influenza Vaccine, Seasonal, Quadrivalent, Recombinant, Preservative Free Unknown 03/11/2020 Administered Taowlejyy-8337-97 Afluria-Single IM Intramuscular 04/17/2018 Administered Influenza-Afluria (IIV4) IM Intramuscular 03/25/2017 Admin istered Pneumococcal polysaccharide PCV 13 IM Intramuscular 02/21/2016 Administered RSV Unknown 05/10/2023 Administered Td (adult) preservative free Unknown 07/06/2008 Administered Td (adult) preservative free IM Intramuscular 08/12/2019 Administered Zoster Unknown 09/05/2011 Administered Social History Tobacco Use: Social History [...] W/U Status Risk Notes Problem Secondary polycythemia (61594907) Secondary polycythemia (D75.1) Active confirmed Problem Diabetic renal disease (777265767) Type 2 diabetes mellitus with diabetic chronic kidney disease (E11.22) Active confirmed Problem Vitamin D deficiency (62840677) Vitamin D deficiency, unspecified (E55.9) Active confirmed Problem Morbid obesity (disorder) (909008445) Morbid (severe) obesity due to excess calories (E66.01) Active confirmed Problem Mixed hyperlipidemia (260265753) Mixed hyperlipidemia (E78.2) Active confirmed Problem Chronic alcoholism in remission (128470294) Alcohol dependence, in remission (F10.21) Active confirmed Problem Tobacco user (344470308) Nicotine dependence, cigarettes, in remission (F17.211) Active confirmed Problem Recurrent major depression in remission (53894572) Major depressive disorder, recurrent, in partial remission (F33.41) Active confirmed Problem Alzheimer's disease with late onset (085620028) Alzheimer's disease with late onset (G30.1) Active confirmed Problem Mild cognitive disorder (266440063) Mild cognitive impairment, so stated (G31.84) Active confirmed Problem Obstructive sleep apnea syndrome (53228210) Obstructive sleep apnea (adult) (pediatric) (G47.33) Active confirmed Problem 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, right ear (H81.311) Active confirmed Problem Sensorineural hearing loss of bilateral ears (disorder) (995283673) Sensorineural hearing loss, bilateral (H90.3) Active confirmed Problem Chronic kidney disease due to hypertension (536238275497987) Hypertensive chronic kidney disease with stage 1 through stage 4 chronic kidney disease, or unspecified chronic kidney disease (I12.9) Active confirmed Problem Atherosclerotic heart disease of [place] coronary artery without angina pectoris ([id number]) Atherosclerotic heart disease of [place] coronary artery without angina pectoris (I25.10) Active confirmed Problem Angina co-occurrent and due to coronary arteriosclerosis (disorder) (86673117027121881) 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.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) Active confirmed Problem Old myocardial infarction (4594421) Old myocardial infarction (I25.2) Active confirmed Problem Paroxysmal tachycardia (52765749) Paroxysmal tachycardia, unspecified (I47.9) Active confirmed Problem Atrial premature depolarization (694237525) Atrial premature depolarization (I49.1) Active confirmed Problem Ventricular premature depolarization (468865733) Ventricular premature depolarization (I49.3) Active confirmed Problem Gastro-esophageal reflux disease without esophagitis (893587058) Gastro-esophageal reflux disease without esophagitis (K21.9) Active confirmed Problem HALL - Nonalcoholic steatohepatitis (557551986) Nonalcoholic steatohepatitis (HALL) (K75.81) Active confirmed Problem Alopecia (16061405) Nonscarring hair loss, unspecified (L65.9) Active confirmed Problem Osteoarthritis of knee (307903607) Osteoarthritis of knee, unspecified (M17.9) Active confirmed Problem Cervical spondylosis without myelopathy (486187415) Other spondylosis with radiculopathy, cervical region (M47.22) Active confirmed Problem Lumbosacral spondylosis without myelopathy (75439358) Other spondylosis with radiculopathy, lumbar region (M47.26) Active confirmed Problem Lumbosacral spondylosis without myelopathy (62107508) Other spondylosis with radiculopathy, lumbosacral region (M47.27) Active confirmed Problem Displacement of lumbar intervertebral disc without myelopathy (31202038) Other intervertebral disc displacement, lumbar region (M51.26) Active confirmed Problem Cervicalgia (89935307) Cervicalgia (M54.2) Active confirmed Problem Sciatica (72162485) Sciatica, unspecified side (M54.30) Active confirmed Problem Age-related osteoporosis (227297521) Age-related osteoporosis without current pathological fracture (M81.0) Active confirmed Problem Chronic kidney disease stage 2 (692447802) Chronic kidney disease, stage 2 (mild) (N18.2) Active confirmed Problem Neurogenic claudication (460379960) Spinal stenosis, lumbar region with neurogenic claudication (M48.062) Active confirmed Problem Chronic kidney disease stage 3A (disorder) (803189033) Chronic kidney disease, stage 3a (N18.31) Active confirmed Problem Body mass index 30.00 to 34.99 (282031615148991) Body mass index [BMI] 31.0-31.9, adult (Z68.31) Active confirmed Problem Personal history of adenomatous and serrated colon polyps (Z86.0101) Active confirmed Problem Age-related nuclear cataract of right eye (629827881572275) Age-related nuclear cataract, right eye (H25.11) Problem resolved confirmed Problem Age-related nuclear cataract of left eye (675098361704733) Age-related nuclear cataract, left eye (H25.12) Problem resolved confirmed Problem COVID19 DANIELLE-Viru s Identified (U07.1) Problem resolved confirmed Problem Body mass index 30.00 to 34.99 (396233511588648) Body mass index [BMI] 34.0-34.9, adult (Z68.34) Problem resolved confirmed Vital Signs Heart Rate 63 /min 03/03/2025 Temperature 96.0 degrees Fahrenheit 03/03/2025 Blood pressure diastolic 56 mm Hg 03/03/2025 Oximetry 96 % 03/03/2025 Height 61 in 03/03/2025 Blood pressure systolic 110 mm Hg 03/03/2025 Weight 170 lbs 03/03/2025 BMI 32.12 kg/m2 03/03/2025 Encounters Encounter Location Date Provider Diagnosis Felicitas Mckeon MD [address] [id number] 06/29/2024 Felicitas Mckeon 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.22 ; Hypertensive chronic kidney disease with stage 1 through stage 4 chronic kidney disease, or unspecified chronic kidney disease I12.9 ; Chronic kidney disease, stage 3a N18.31 ; Major depressive disorder, recurrent, in partial remission F33.41 ; Atherosclerotic heart disease of [place] coronary artery without angina pectoris I25.10 ; Mixed hyperlipidemia E78.2 ; Obstructive sleep apnea (adult) (pediatric) G47.33 ; Age-related osteoporosis without current pathological fracture M81.0 ; Nonalcoholic steatohepatitis (HALL) K75.81 ; Alcohol dependence, in remission F10.21 ; Gastro-esophageal reflux disease without esophagitis K21.9 ; Nicotine dependence, cigarettes, in remission F17.211 and Vitamin D deficiency, unspecified E55.9 Felicitas Mckeon MD [address] [id number] 07/28/2024 Julianna Tracy Acute bronchitis due to other specified organisms J20.8 ; Acute cough R05.1 and Acute upper respiratory infection, unspecified J06.9 Felicitas Mckeon MD [address] [id number] 08/03/2024 Julianna Tracy Acute bronchitis due to other specified organisms J20.8 and Acute cough R05.1 Felicitas Mckeon MD [address] [id number] 09/17/2024 Felicitas Mckeon Encounter for genera l [...] remission F33.41 ; Atherosclerotic heart disease of [place] coronary artery without angina pectoris I25.10 ; [...] hearing loss, bilateral H90.3 Felicitas Mckeon MD [address] [id number] 12/08/2024 Felicitas Mckeon Mild cognitive impairment of uncertain or unknown etiology G31.84 ; Pain in right knee M25.561 and Vitamin D deficiency, unspecified E55.9 Felicitas Mckeon MD [address] [id number] 03/03/2025 Felicitas Mckeon Hypertensive chronic kidney disease with stage [...] remission F10.21 ; Atherosclerotic heart disease of [place] coronary artery without angina pectoris I25.10 ; Mixed hyperlipidemia E78.2 ; Nonalcoholic steatohepatitis (HALL) K75.81 ; Gastro-esophageal reflux disease without esophagitis K21.9 ; Nicotine dependence, cigarettes, in remission F17.211 ; Vitamin D deficiency, unspecified E55.9 ; Encounter for immunization Z23 ; Osteoarthritis of knee, unspecified M17.9 and Sciatica, unspecified side M54.30 Felicitas Mckeon MD PC [address] [place], [place] [id number] 05/04/2024 Felicitas Mckeon MD PC [address] [facility] [address] [address] [place], [place] [id number] 07/01/2024 Felicitas Mckeon MD PC [address] [facility] [place], [place] [id number] 07/23/2024 Felicitas Mckeon Influenza due to identified novel influenza A virus with other respiratory manifestations J09.X2 Felicitas Mckeon MD PC [address] [facility] [address] [place], [place] [id number] 07/27/2024 Felicitas Mckeon Influenza due to identified novel influenza A virus with other respiratory manifestations J09.X2 Felicitas Mckeon MD PC [address] [facility] [address] [place], [place] [id number] 07/27/2024 Felicitas Mckeon MD PC [address] [facility] [address] [place], [place] [id number] 07/28/2024 Felicitas Mckeon MD PC [address] [facility] [address] [place] [id number] 07/31/2024 Felicitas Mckeon MD PC [address] [facility] [address] [place] [id number] 10/12/2024 Felicitas Mckeon MD PC [address] [facility] [address] [place] [id number] 11/04/2024 Felicitas Mckeon MD [address] [facility] [address] [place] [id number] 12/03/2024 Felicitas Mckeon 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.22 Felicitas Mckeon MD [address] [facility] [address] [place] [id number] 12/11/2024 Felicitas Mckeon MD PC [address] [facility] [address] [place], [place] [id number] 12/18/2024 Felicitas Mckeon MD PC [address] [facility] [address] [place] [id number] 12/22/2024 Felicitas Mckeon MD PC [address] [facility] [address] [place] [id number] 12/23/2024 Felicitas Mckeon MD PC [address] [facility] [address] [place] [id number] 01/04/2025 Felicitas Mckeon MD PC [address] [facility] [address] [place] [id number] 03/10/2025 Felicitas Mckeon MD PC [address] [facility] [address] [id number] 03/16/2025 Felicitas Mckeon MD [address] [id number] 03/29/2025 Felicitas Mckeon MD [address] [id number] 01/04/2025 Felicitas Mckeon Assessments Encounter Date Diagnosis (ICD Code) Assessment Notes Treatment Notes Treatment Clinical Notes Section Notes 07/23/2024 Influenza due to identified novel influenza A virus with other respiratory manifestations (ICD-10 - J09.X2) 08/03/2024 Acute bronchitis due to other specified [...] follow-up sooner than her follow-up appointment in 12/08/2024 Pain in right knee (ICD-10 - [...] reversal and treatable causes of cognitive impairment. 12/03/2024 Type 2 diabetes mellitus with diabetic [...] measured at 110/56. No current issues reported. 09/17/2024 Hypertensive chronic kidney disease with stage [...] labs. She already has a healthcare proxy 07/28/2024 Acute bronchitis due to other specified [...] azithromycin to assist in managing suspected bronchitis. 07/27/2024 Influenza due to identified novel influenza A virus with other respiratory manifestations (ICD-10 - J09.X2) 06/29/2024 Type 2 diabetes mellitus with diabetic chronic kidney disease (ICD-10 - E11.22) Controlled with current medical therapy. Continue same. She does not wish to have GLP therapy. 06/29/2024 Hypertensive chronic kidney disease with stage 1 through stage 4 chronic kidney disease, or unspecified chronic kidney disease (ICD-10 - I12.9) Stable at present. Continue current medical therapy 06/29/2024 Chronic kidney disease, stage 3a (ICD-10 - N18.31) Stable estimated GFR in the 50s. Recheck status. 07/28/2024 Acute upper respiratory infection, unspecified (ICD-10 - J06.9) Given patient's persistent symptoms despite Tamiflu and Medrol use, did obtain an updated respiratory panel to ensure she does not have any additional underlying respiratory illnesses. 09/17/2024 Type 2 diabetes mellitus with diabetic chronic kidney disease (ICD-10 - E11.22) Controlled with current medical therapy. Continue same. She would benefit from GLP therapy but she does not wish to pursue GLP therapy. 03/03/2025 Major depressive disorder, recurrent, in partial remission (ICD-10 - F33.41) She has follow-up with behavioral health and her medical therapy was adjusted. She feels she is doing OK. 12/08/2024 Vitamin D deficiency, unspecified (ICD-10 - E55.9) Stable on prior labs reviewed. 08/03/2024 Acute cough (ICD-10 - R05.1) See [...] worsen or new symptoms of concern began 03/03/2025 Age-related osteoporosis without current pathological fracture [...] recheck status to verify stability versus progression. 06/29/2024 Atherosclerotic heart disease of [place] coronary artery without angina pectoris (ICD-10 - I25.10) Stable at present. Continue control of comorbidities of hypertension diabetes and hyperlipidemia 09/17/2024 Major depressive disorder, recurrent, in partial remission (ICD-10 - F33.41) She has follow-up with behavioral health and her medical therapy was adjusted due to increased stress. She feels she is doing a bit better. 03/03/2025 Obstructive sleep apnea (adult) (pediatric) (ICD-10 - G47.33) She is not using her CPAP. Recommend consistent use of CPAP 03/03/2025 Alzheimer's disease with late onset (ICD-10 - G30.1) Tau protein elevated. MoCA score 22. PET scan centiloid score 11.66, low abnormality. Diagnosis of mild Alzheimer's disease. - Monitor cognitive status. - No medication indicated at current stage. 09/17/2024 Atherosclerotic heart disease of [place] coronary artery without angina pectoris (ICD-10 - I25.10) Stable at present without any active symptoms. Continue control of comorbidities of hypertension and hyperlipidemia and diabetes 06/29/2024 Mixed hyperlipidemia (ICD-10 - E78.2) Controlled with current medical therapy. Continue same. 06/29/2024 Obstructive sleep apnea (adult) (pediatric) (ICD-10 - G47.33) She is not consistently using her CPAP. 03/03/2025 Dementia in other diseases classified elsewhere, mild, without behavioral disturbance, psychotic disturbance, mood disturbance, and anxiety (ICD-10 - F02.A0) Tau protein elevated. MoCA score 22. PET scan centiloid score 11.66, low abnormality. Diagnosis of mild Alzheimer's disease. - Monitor cognitive status. - No medication indicated at current stage. 09/17/2024 Age-related osteoporosis without current pathological fracture (ICD-10 - M81.0) Recommend medical therapy. 03/03/2025 Chronic kidney disease, stage 2 (mild) (ICD-10 - N18.2) Kidney function is 66, stage 2 chronic kidney disease. Improved from stage 3. No blood or protein in urine. - Continue Farxiga to support kidney health. - Monitor kidney function. 09/17/2024 Obstructive sleep apnea (adult) (pediatric) (ICD-10 - G47.33) She is not using her CPAP. Recommend consistent use of CPAP 06/29/2024 Age-related osteoporosis without current pathological fracture (ICD-10 - M81.0) Stable at present. Her bone density has decreased by 4%. She cannot afford medical therapy therefore continue weightbearing exercise. 06/29/2024 Nonalcoholic steatohepatitis (HALL) (ICD-10 - K75.81) Her ALT has normalized with weight loss. Her fib 4 index is minimally elevated. We can check elastography to verify that there is no early fibrosis 09/17/2024 Nonalcoholic steatohepatitis (HALL) (ICD-10 - K75.81) Stable on prior labs as reviewed. Her ALT has normalized. Her fib 4 index is slightly elevated. Her elastography does not show any signs of fibrosis. 03/03/2025 Morbid (severe) obesity due to excess [...] - F10.21) Effectively remains in remission. 06/29/2024 Gastro-esophageal reflux disease without esophagitis (ICD-10 - K21.9) Symptomatically stable at present 09/17/2024 Mixed hyperlipidemia (ICD-10 - E78.2) Stable on prior labs as reviewed. Recheck status and continue current medical therapy 03/03/2025 Atherosclerotic heart disease of [place] coronary artery without angina pectoris (ICD-10 - I25.10) Stable at present without any active symptoms. Continue control of comorbidities of hypertension and hyperlipidemia and diabetes 03/03/2025 Mixed hyperlipidemia (ICD-10 - E78.2) Stable on prior labs as reviewed. Recheck status and continue current medical therapy 09/17/2024 Gastro-esophageal reflux disease without esophagitis (ICD-10 - K21.9) Symptomatically stable at present 06/29/2024 Nicotine dependence, cigarettes, in remission (ICD-10 - F17.211) Remains in remission 09/17/2024 Personal history of adenomatous and serrated [...] MONITOR, 7 DAYS, INTERPRETATION 0 12/31/2023 Urinalysis, Complete-[id number] 03/03/2025 Albumin/Creatinine Ratio,Urine-[id number] 25OH VITAMIN D 11/18/2017 COMPLETE CBC WITH DIFF 11/18/2017 COMPLETE URINALYSIS 11/18/2017 COMPREHENSIVE METABOLIC PANEL 11/18/2017 LIPID PANEL W REFLEX TO DLDL 11/18/2017 URINARY MICROALBUMIN 11/18/2017 Future Test Test Name Order Date Delia Screening Digital 11/01/2020 Next Appt Details Provider Name:Felicitas Mckeon , 06/07/2025 01:30:00 PM, [address] [place] [address], [address], [phone], Provider Name:Felicitas Mckeon 06/29/2025 02:00:00 PM, [address] [place] [address], [address], [phone], Provider Name:Felicitas Mckeon , 09/27/2025 01:00:00 PM, [address] [facility], [address], [place], [place], [phone], Insurance Providers Payer Name Payer Address Payer Phone Subscriber Number Group Number Insured Name Patient Relationship to Insured Coverage Start Date Coverage End Date MEDICARE [address] [place] [phone] [id number] Amanda Oseguera Self - patient is the insured [facility] [address] [place] [address] [id number] Amanda sOeguera Self - patient is the insured Medical (General) History Medical History History ICD Code Nondisplaced fracture of body of left ta sobia, sequela Alcohol dependence, uncomplicated Atherosclerotic heart diseas e of [place] coronary artery without angina pectoris I25.10 Old [...]
--- OUTSIDE RECORDS SUMMARY | 2025-04-08 08:56 | XMS_ITS | Clinical Summary ---
Author Organization [facility] Address [address] [place] [address] Care Team Providers Care Rotary Engraver Name Role Phone Felicitas Mckeon MD Primary Care Provider [phone] Allergies Active Allergy Reactions Criticality Noted Date [...] 81 mg by mouth daily. 0 Active Val[place]-3 1400 MG CAPS Take by mouth. 0 Active [place] 3 1000 MG CAPS Take by mouth. [...] age to complete this topic Care Teams Rotary Engraver Relationship Specialty Start Date End Date Felicitas Mckeon MD [address] [place] [id number] PCP - General Internal Medicine 10/13/18
--- OUTSIDE RECORDS SUMMARY | 2025-04-08 08:56 | XMS_ITS | Continuity of Care Document ---
Author Organization [facility] Address [address] [facility] [address] [place] [address] Phone [phone] Social History Type Date Description Comments Sex Female Sex Unknown Medical Devices Description No Information Available Encounters Description No Information Available Assessments Description No Information Available Plan of Treatment No Information Available Functional Status Description No Information Available Mental Status Description No Information Available Referrals Description No Information Available
== END 2025-04-07 08:30 | disposition home or self-care (01) ==
LOC: HO.HOSX 08:29
PROVIDERS: Visit Provider Orthopaedic Surgery
DX: M17.0 Bilateral primary osteoarthritis of knee (principal)
CPT/HCPCS: 73562; 99202

== ENCOUNTER 2025-04-07 12:34 | Outpatient (AMB) | payer MEDICARE, SELFPAY ==
--- OUTSIDE RECORDS SUMMARY | 2024-12-08 09:15 | XMS_ITS ---
Author Organization Felicitas Mckeon MD Address [address] [phone] Care Team Providers Care Residential Program Director Name Role Phone Felicitas Mckeon Primary Care Provider [phone] REASON FOR VISIT 2m f/u MOCA Encounters Encounter Location Date Provider Diagnosis Felicitas Mckeon MD [address] [place] [address] [place] [phone] 12/08/2024 Felicitas Mckeon Plan Of Treatment Next Appt Details Provider Name:Felicitas Mckeon , 06/07/2025 01:30:00 PM, [address] [place] [address], [phone], Provider Name:Felicitas Mckeon , 06/29/2025 02:00:00 PM, [address] [place] [address], [phone], Provider Name:Fleicitas Mckeon , 09/27/2025 01:00:00 PM, [address] [place] [address], [phone], Progress Notes * Bella OSEGUERAB:1950 ( 74 yo F)Acc No.[id number]:12/08/2024 Patient: Amanda PEREZ Provider: Heather Mckeon MD :1950 A ge:74 Y S ex:Female Date:12/08/2024 Address:[address] [place], [place] [address] [phone] Subjective: * Chief Complaints: * 1 . [...] Electronic signature of Dorothy Mckeon MD on 04/07/2025 at 03:12 PM EST Sign off status: Pending * Provider: Heather Mckeon MD Date: 0 12/08/2024 Generated for Teo newman/Judah/Rocco on: 1 06/07/2024 03:12 PM EST
--- NOTE | 2025-04-07 12:57 | A.OFFVIS_ITS ---
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 She describes her pains as sharp in nature. Her pains have gotten worse over the last few years in spite of continued non operative treatments. She has had cortisone injections in the past which gave her minimal relief. She has failed the last 3 months of conservative treatment which has included Tylenol, anti-inflammatory medicines, physical therapy exercises and a home exercise program. At this point her knee pains are interfering with her activities of daily living and her ability to sleep well through the night. She wishes to hold off on total knee replacement surgery if at all possible. Allergies Sulfa (Sulfonamide Antibiotics) Allergy (Verified 04/07/25 13:02) Unknown [facility] Social History (Updated 04/07/25 @ 13:04 by Louis Mosqueda) Alcohol intake: current Alcohol intake frequency: holidays/special occasions only Patient Tobacco Use Status: Never used Tobacco Current occupational status: retired Physical Exam Const Other: Well-nourished well-developed very friendly female awake alert and oriented x3 in no acute distress Extrem Other: Bilateral knee examination shows minimal effusions, palpable crepitus with range of motion, pain with range of motion, no instability Results Reviewed Results Reviewed: X-rays of the patient's bilateral knees show moderate joint space narrowing, subchondral sclerosis, no acute bony abnormalities Assessment & Plan Assessment & Plan (1) Osteoarthritis of left knee: Code(s): M17.12 - Unilateral primary osteoarthritis, left knee Category: Medical (2) Osteoarthritis of right knee: Code(s): M17.11 - Unilateral primary osteoarthritis, right knee Category: Medical Plan Ms. Oseguera presents with bilateral knee pains due to osteoarthritis. I had a lengthy discussion with the patient regarding the treatment options. She wishes to hold off on surgery if at all possible. I agree with this plan. I will see if the patient's insurance company will cover a viscosupplementation injection, such as Durolane, for both of her knees. I will see her back once the inje ctions are approved. Feel free to call me at any time should questions regarding her orthopedic management arise. Thank you very much for asking me to see this very friendly patient. I spent 20 minutes in reviewing the patient's records and imaging studies, seeing the patient and documenting in the medical record. Orders: Orders XR Knee Elder 3V Today M25.561 - Pain in right knee, M25.562 - Pain in left knee Coding Level of Care Code New Pt Level 3 (35454) Complex EM visit Add On G2211 Diagnoses Osteoarthritis of left knee M17.12 Osteoarthritis of right knee M17.11
--- OUTSIDE RECORDS SUMMARY | 2025-04-07 15:12 | XMS_ITS | Patient Health Record ---
Author Organization [facility] Address [address] [place] [id number] Care Team Providers Care Implementation Project Coordinator Name Role Phone [facility] Primary Care Provider [phone] Julianna Tracy Unavailable [phone] Allergies Allergen (clinical drug ingredient) Drug/Non Drug Allergy documented on EMR Reaction Allergy Type Onset Date Status Substance with sulfonamide structure and antibacterial mechanism of action (substance) Sulfa Antibiotics Unknown Drug Allergy Active Results Component Value Reference Range Notes CR Chest Routine 2 Views Reviewed date:07/27/2024 02:49:44 PM Interpretation: Performing Lab: Notes/Report: IMGEAP Reviewed date:07/27/2024 09:17:04 PM Interpretation: Performing Lab: Notes/Report: See Note [facility], a member of [facility] XR CHEST 2 VIEWS INDICATION: Pain TECHNIQUE: XR CHEST 2 VIEWS COMPARISON: 02/10/2024 IMPRESSION: FINDINGS/IMPRESSION: No pneumonia or pulmonary edema. No pleural effusion or pneumothorax. Cardiac silhouette is normal in size. Degenerative changes seen throughout the bones. Cholecystectomy clips. -------- FINAL REPORT -------- Dictated By: HI ARREOLA Dictated Date: 07/27/2024 10:19 ET Assigned Physician: HI ARREOLA Reviewed and Electronically Signed By: HI ARREOLA Signed Date: 07/27/2024 10:19 ET Workstation ID: [id number] Transcribed By: Self Edit Transcribed Date: 07/27/2024 10:19 ET [id number], RSV, FLU A AN D B QUALITATIVE RT-PCR Reviewed date:07/27/2024 09:17:04 PM Interpretation: Performing Lab: Notes/Report: SARS COV-2 Not Detected Not Detected Disclaimer: The manner in which this information is used to guide patient care is the responsibility of the healthcare provider. Testing was performed using the Smart Hydro Power Alinity m SARS-CoV-2 test. This test has been authorized by FDA under an Emergency Use Authorization (EUA). This test is only authorized for the duration of time the declaration that circumstances exist justifying the authorization of the emergency use of in vitro diagnostic tests for detection of SARS-CoV-2 virus and/or diagnosis of COVID-19 infection under section 564(b)(1) of the Act, 21 U.S.C. 360bbb-3(b)(1), unless the authorization is terminated or revoked sooner. Fact sheet for Healthcare Providers can be found at: https://www.fda.gov/media /875228/download Fact sheet for Patients can be found at: https://www.fda.gov/media /383979/download Influenza A PCR Detected Not Detected This patient is positive for influenza A. If the patient is admitted, please order the Respiratory Virus Panel PCR (Epic ID: [id number]) so our lab can subtype the influenza A, per CDC recommendations. Influenza B PCR Not Detected Not Detected RSV PCR Not Detected Not Detected Respiratory Panel w/ SARS-Co [id number] Reviewed date:07/31/2024 07:09:41 AM Interpretation: Performing Lab:[facility], [address], [place], Phone - [phone], Director - Aneesh Notes/Report: Clinical Information:SRC: Adenovirus Not Detected Not Detected Coronavirus HKU1 Not Detected Not Detected Coronavirus NL63 Not Detected Not Detected Coronavirus 229E Not Detected Not Detected Coronavirus OC43 Not Detected Not Detected SARS-CoV-2 Not Detected Not Detected Human Metapneumovirus Not Detected Not Detected Human Rhinovirus/Enterovirus Not Detected Not Detected Influenza A Detected Not Detected Influenza A/H1 TNP Test not perf ormed Influenza A/H1-2009 Detected Not Detected Influenza A/H3 TNP Test not perf ormed Influenza B Not Detected Not Detected Parainfluenza 1 Not Detected Not Detected Parainfluenza 2 Not Detected Not Detected Parainfluenza 3 Not Detected Not Detected Parainfluenza 4 Not Detected Not Detected Respiratory Syncytial Virus Not Detected Not Detected Bordetella parapertussis Not Detected Not Detected Bordetella pertussis Not Detected Not Detected Chlamydophila pneumoniae Not Detected Not Detected Mycoplasma pneumoniae Not Detected Not Detected XR Knee Right Reviewed date:12/11/2024 03:19:33 PM Interpretation: Performing Lab: Notes/Report: Original Report PROCEDURE: XR RIGHT KNEE 3 views INDICATION: Right knee pain. TECHNIQUE: Three views of the right knee. COMPARISON: None available. FINDINGS: There is no displaced fracture. There is moderate medial compartment joint space narrowing with osteophyte formation. Tiny osteophytes are noted of the lateral compartment. There is no joint effusion. IMPRESSION: Moderate medial compartment osteoarthritis of the right knee. Ginger Carey MD Signed by Ginger Carey MD Read by: Stanislaw Carey M.D. Reviewed and Electronically Signed by: Stanislaw Carey M.D. Eye Exam Reviewed date:03/05/2025 01:41:25 PM Interpretation: Performing Lab: Notes/Report: Vitamin [id number] Reviewed date:12/18/2024 03:59:32 PM Interpretation: Performing Lab:[facility], [address], Phone - [phone], Director - Rohith Notes/Report: Test(s) [id number] was developed and its performance characteristics determined by [facility]. It has not been cleared or approved by the Food and Drug Administration. Vitamin B12 7622 108-8493 pg/mL Phosphatidylethanol (PEth)-7 80024 Reviewed date:03/09/2025 06:45:36 PM Interpretation: Performing Lab:[facility], [address] [place] [address], [place], Phone - [phone], Director - Aneesh Notes/Report: PHOSPHATIDYLETHANOL Negative Phosphatidylethanol (PEth) Negative Analyzed compound: PEth 16:0/18:1. 5-kjzhladhr-1-oleoyl-sn-g xvbxky-1-ivpgvhuzsesxir. Analysis performed by Liquid Chromatography with Tandem Mass Spectrometry (LC/MS/MS). Detection limit: 20 ng/mL PEth levels in excess of 20 ng/mL are considered evidence of moderate to heavy ethanol consumption. However, the Center for Substance Abuse Treatment (CSAT) advises caution in interpretation and use of biomarkers alone to assess alcohol use. Results should be interpreted in the context of all available clinical and behavioral information. Reference: Substance Abuse and Mental Health Services Administration (2012). The Role of Biomarkers in the Treatment of Alcohol Use Disorders , 2012 Revision. Advisory, Volume 11, Issue 2. This test was developed and its performance characteristics determined by [facility]. It has not been cleared or approved by the Food and Drug Administration. LP+Non-HDL Cholesterol-48061 5 Reviewed date:03/09/2025 06:45:36 PM Interpretation: Performing Lab:[facility], [address], [place], Phone - [phone], Director - Aneesh Notes/Report: Cholesterol, Total 96 100-199 mg/dL Triglycerides 257 0-149 mg/dL HDL Cholesterol 37 >39 mg/dL VLDL Cholesterol Austyn 38 5-40 mg/dL LDL Chol Calc (NIH) 21 0-99 mg/dL Non-HDL Cholesterol 59 0-129 mg/dL Comp. Metabolic Panel (14)-3 87595 Reviewed date:03/09/2025 06:45:35 PM Interpretation: Performing Lab:[facility] Zarco, [address], [place], Phone - [phone], Director - Aneesh Notes/Report: Glucose 111 70-99 mg/dL BUN 14 8-27 mg/dL Creatinine 0.94 0.57-1.00 mg/dL eGFR 64 >59 mL/min/1.73 BUN/Creatinine Ratio 15 12-28 Sodium 140 134-144 mmol/L Potassium 4.0 3.5-5.2 mmol/L Chloride 100 96-106 mmol/L Carbon Dioxide, Total 23 20-29 mmol/L Calcium 9.6 8.7-10.3 mg/dL Protein, Total 6.5 6.0-8.5 g/dL Albumin 4.5 3.8-4.8 g/dL Globulin, Total 2.0 1.5-4.5 g/dL Bilirubin, Total 0.7 0.0-1.2 mg/dL Alkaline Phosphatase 76 49-135 IU/L AST (SGOT) 25 0-40 IU/L ALT (SGPT) 24 0-32 IU/L Vitamin D, 22-Nigpjjw-[id number] Reviewed date:03/09/2025 06:45:35 PM Interpretation: Performing Lab:[facility] [place], [address], [place], Phone - [phone], Director - Aneesh Notes/Report: Vitamin D, 25-Hydroxy 47.7 30.0-100.0 ng/mL Vitamin D deficiency has been defined by the [place] and an Endocrine Society practice guideline as a level of serum 25-OH vitamin D less than 20 ng/mL (1,2). The Endocrine Society went on to further define vitamin D insufficiency as a level between 21 and 29 ng/mL (2). 1. IOM ([place] of Medicine). 2010. Dietary reference intakes for calcium and D. [place]: The National Academies Press. 2. Jennifer MF, Dalia NC, Frank BISWAS, et al. Evaluation, treatment, and prevention of vitamin D deficiency: an Endocrine Society clinical practice guideline. JCEM. 2010; 96(7):1911-30. Hemoglobin A1C Reviewed date:03/05/2025 01:41:25 PM Interpretation: Performing Lab: Notes/Report: [facility] [place] [facility] Lot: [id number], Brain Amyloid Reviewed date:03/05/2025 01:41:25 PM Interpretation: Performing Lab: Notes/Report: XR KNEE 3 VIEWS RIGHT Reviewed date:12/14/2024 01:17:38 PM Interpretation: Performing Lab: Notes/Report: MR Brain Reviewed date:12/24/2024 08:22:46 AM Interpretation: Performing Lab: Notes/Report: Original Report EXAM: MRI BRAIN WITHOUT CONTRAST CLINICAL INFORMATION: Mild cognitive impairment TECHNICAL INFORMATION: Multiplanar sequence acquisition through the brain without intravenous administration of intravenous gadolinium and following institutional protocol. SEDATION: None. COMPARISON: None. INTERPRETATION: Posterior fossa shows no intra- or extra-axial fluid collections or shifts. No region of abnormal long TR prolongation change is seen in the cerebellum or brainstem. Cerebellar tonsils are normally positioned above the foramen magnum. Vertebrobasilar arteries maintain patent flow voids. Supratentorial ventricles, sulci and cisterns show show generalized and proportionate age-related involution. Cerebral cortex is intact and corticomedullary junction well preserved. No intra or extra collections, localized mass effects or interhemispheric shifts. Mild periventricular matter capping with sparse foci of subcortical and chronic microvascular ischemia noted. Linear signal changes across callosal splenium consistent with age-related variant. No large vessel territory infarcts or areas of diffusion restricted change present. Susceptibility sequences reveal no regions of intraparenchymal or leptomeningeal blooming. No evidence of intracranial hemorrhage. The major intracranial vessels maintain patent signal voids. Empty sella turcica, likely normal variant. Paranasal sinuses and mastoid air cells are clear. Within the limits of technique remainder of extracranial structures unremarkable. CONCLUSION: Generalized age-related cerebral volume loss and mild chronic microangiopathic ischemia (Fazekas grade I). Read by: Gilbert Srivastava M.D. Reviewed and Electronically Signed by: Gilbert Srivastava M.D. Phosphorylated Tau 217 (pTau -217) Reviewed date:12/18/2024 03:59:32 PM Interpretation: Performing Lab:[facility], [address], Phone - [phone], Director - [facility] Notes/Report: Test(s) [id number] was developed and its performance characteristics determined by [facility]. It has not been cleared or approved by the Food and Drug Administration. p-ytn553 0.20 0.00-0.18 pg/mL Clinical cutoff value was established using samples from a patient cohort characterized with amyloid PET data. A p-nca346 value of >0.18 is a reported surrogate marker for beta amyloid pathology, and can be used to facilitate biological identification of Alzheimer's disease (1). p-qno396 has also been used in clinical trials to monitor patients on anti-amyloid therapy (2,3). Test performed by [employer] chemiluminescent enzyme immunoassay (CLEIA). Values obtained with different methods cannot be used interchangeably. The validated limit of quantification is 0.06 pg/mL. Assay detection limit is 0.03 pg/mL. Footnotes 1. Armando Silva, et al. Diagnostic Accuracy of a Plasma Phosphorylated Tau 217 Immunoassay for Alzheimer Disease Pathology. [facility] neurology (2023). 2. Armando Silva, et al. Differential roles of A42/40, p-dop919 and p-rmg209 for Alzheimer's trial selection and disease monitoring. Nature medicine 28.12 (2021): 0709-2346. 3. Sean CLINTON, Myesha M, Kassi SC, et al. Association of Donanemab Treatment With Exploratory Plasma Biomarkers in Early Symptomatic Alzheimer Disease: A Secondary Analysis of the TRAILBLAZER-ALZ Randomized Clinical Trial . [facility] Neurol. 2021;79(12):3796-3368. [facility] Informed Consent Fo Reviewed date:12/18/2024 03:59:32 PM Interpretation: Performing Lab:Michael Mccallum, [address], [place], Phone - [phone], Director - [facility] Notes/Report: [employer] Informed Consent Form [employer] Informed Consent Form 02 Please Fax back to [phone]. Many states require laboratories to have documentation that the appropriate health care provider has obtained informed consent from patients before the laboratory conducts genetic testing. Informed consent includes the patient understanding the purpose of the test, how the test is performed, the reliability of the test, alternatives to testing, implications of test results, and options on how to instruct the laboratory to store, use or dispose of the sample when testing is complete. [facility] did not receive any documentation of informed consent for above mentioned patient and ordered tests. Please check the statement applicable to this patient and sign below so that [facility] may release the results for this patient. . [] I authorize and confirm patient consent for the above mentioned genetic test(s). . [] I have provided appropriate informed consent for the above mentioned test(s) and documentation of this consent is maintained in the patient record. . . Health care provider signature _Date . Printed name __ . Fax back to [facility] at [phone] . [facility] APOE Alzheimer's Risk-622141 Reviewed date:12/18/2024 03:59:32 PM Interpretation: Performing Lab:[facility], [address], Phone - [phone], Director - [facility] Notes/Report: Test(s) [id number] was developed and its performance characteristics determined by [facility]. It has not been cleared or approved by the Food and Drug Administration. Methodology: Patient DNA is assayed for the APOE genotype by PCR amplification of a specific region in exon 4 of the APOE gene followed by digestion with restriction enzyme Specialist Physician I and separation of fragments by polyacrylamide gel electrophoresis. This approach allows the APOE E2, E3, and E4 alleles to be distinguished. Analytical sensitivity and specificity are >99.5%. Individuals are interpreted as having one of the following genotypes: E2/E2, E3/E3, E4/E4, E2/E3, E2/E4, E3/E4. APO E Genotyping Result: E3/E3 Interpretation: Negative for the APOE4 variant that is associated with increased risk for late onset Alzheimer's disease (AD). E3/E3 is the most common APOE genotype and is not associated with increased risk for AD. RECOMMENDATIONS Genetic counseling is recommended. Due to the lack of measures to prevent the development of AD, the ACMG/NSGC guidelines do not recommend presymptomatic testing, but if it is performed, guidelines are provided (Yola REYNAGA et al. 2011). The APOE Genotyping: Alzheimer's Risk test is not recommended for children. NOTE: This is not a diagnostic test. Results should be interpreted along with clinical findings and other data. This test evaluates only for the APOE genotype and cannot detect genetic abnormalities elsewhere in the genome. It should be realized that there are possible sources of error including sample misidentification, rare technical errors, trace contamination of PCR reactions, and rare genetic variants that may interfere with analysis. For inquiries or genetic consultation, please call [facility] at . Comment: INFORMATION ABOUT THE APOE GENOTYPE AND ALZHEIMER'S DISEASE Alzheimer's disease (AD) is the most common form of dementia in the elderly and currently affects more than 5 million Americans. It is a progressive neurodegenerative disorder with brain findings of plaques and neurofibrillary tangles containing beta-amyloid and tau protein respectively. The predominant form of AD is late onset (age > 60-65), which can be familial (15-20%) or sporadic. The APOE4 variant increases the risk for late onset AD and may contribute to the pathology of the disease. This risk is increased by approximately 2 to 3-fold for individuals with one copy of the APOE4 variant and by approximately 10 hl61-sves for individuals with two copies of this variant (E4/E4 genotype). The APOE2 variant has some protective effect against development of late onset AD. The lifetime risk for late onset AD is approximately 10-12% in the general population, though it is higher in women than men and doubles when there is a first degree relative with this disorder. The lifetime risk is approximately 9% for individuals negative for APOE4, and for individuals with E4/E4 may be as high as 25% for males and 45% for females. Among patients with late onset AD, the presence of APOE4 may lead to earlier development of symptoms. However, APOE4 is neither necessary nor sufficient for the development of AD. Approximately 30-50% of patients with late onset AD do not have an APOE4 allele. APOE4 is common, with 25% of the general population having one copy and 1% having two copies of this variant. Among patients with late onset AD, 50-70% are positive for APOE4. The development of late onset AD is influenced by many factors other than APOE4 including age, gender, family history, level of education and history of head trauma. Midlife cardiovascular risk factors in individuals with APOE4 also increase risk for cognitive decline. A number of genetic influences in addition to APOE4 have also been reported and are under investigation. This test was developed and its performance characteristics determined by [facility]. It has not been cleared or approved by the Food and Drug Administration. The FDA has determined that such clearance or approval is not necessary. REFERENCES Frannie Romero et al. Sex modifies the APOE-related risk of developing Alzheimer disease. Annal Neurol 2014;75(4):563-573 Bird TD. Alzheimer Disease Overview. GeneReviews (internet). Alec LONG et al., editors. Merged with [facility]: [facility], [place], [place]. Last revised 2014. Yola REYNAGA et al. Genetic counseling and testing for Alzheimer disease: Joint practice guidelines of the [place] College [employer] Genetics and the National Society of Genetic Counselors. Sandra in Med 2011;13(3)800-950. Rafal CROFT. Apolipoprotein E: Implications for AD neurobiology, epidemiology and risk assessment. Neurobiology of Aging 2011;32:778-790 [id number] Reviewed date:12/18/2024 03:59:32 PM Interpretation: Performing Lab:[facility], [address], Phone - [phone], Director - [facility] Notes/Report: Test(s) [id number] was developed and its performance characteristics determined by [facility]. It has not been cleared or approved by the Food and Drug Administration. TSH 1.990 0.450-4.500 uIU/mL Hemoglobin A1C Reviewed date:06/29/2024 06:23:00 PM Interpretation: Performing Lab: Notes/Report: [facility] [place] ([facility] [place] [facility]), [facility]icitas [facility] Lot: [id number] Urinalysis, Complete-[id number] Reviewed date:07/01/2024 05:09:37 PM Interpretation: Performing Lab:[facility], [facility], [place], Phone - [phone], Director - Aneesh Notes/Report: Specific Gilmore 1.021 1.005-1.030 pH 6.0 5.0-7.5 Urine-Color Yellow Yellow Appearance Clear Clear WBC Esterase Negative Negative Protein Negative Negative/Trace Glucose 3+ Negative Ketones Negative Negative Occult Blood Negative Negative Bilirubin Negative Negative Urobilinogen,Semi-Qn 0.2 0.2-1.0 mg/dL Nitrite, Urine Negative Negative Microscopic Examination Micr oscopic follows if indicated. Microscopic Examination See below: Micr oscopic was indicated and was performed. WBC None seen 0 - 5 /hpf RBC None seen 0 - 2 /hpf Epithelial Cells (non renal) None seen 0 - 10 /hpf Casts None seen None seen /lpf Bacteria None seen None seen/Few Vitamin D, 25-Hroodyn-[id number] Reviewed date:07/01/2024 05:09:37 PM Interpretation: Performing Lab:[facility], [facility], [place], Phone - [phone], Director - Aneesh Notes/Report: Vitamin D, 25-Hydroxy 45.1 30.0-100.0 ng/mL Vitamin D deficiency has been defined by the [place] of [employer] and an Endocrine Society practice guideline as a level of serum 25-OH vitamin D less than 20 ng/mL (1,2). The Endocrine Society went on to further define vitamin D insufficiency as a level between 21 and 29 ng/mL (2). 1. IOM ([place] of [employer]). 2010. Dietary reference intakes for calcium and D. [place]: The National Academies Press. 2. Jennifer MF, Dalia TRUJILLO, Frank BISWAS, et al. Evaluation, treatment, and prevention of vitamin D deficiency: an Endocrine Society clinical practice guideline. JCEM. 2010; 96(7):1911-30. Albumin/Creatinine Ratio,Uri ne-[id number] Reviewed date:07/01/2024 05:09:37 PM Interpretation: Performing Lab:[facility], [address] [facility], Phone - [phone], Director - Aneesh Notes/Report: Creatinine, Urine 42.4 Not Estab. mg/dL Albumin, Urine <3.0 Not Estab. ug/mL Alb/Creat Ratio <7 0-29 mg/g creat Normal: 0 - 29 Moderately increased: 30 - 300 Severely increased: >300 Comp. Metabolic Panel (14)-3 68191 Reviewed date:07/01/2024 05:09:37 PM Interpretation: Performing Lab:[facility], [address] [facility], [place], Phone - [phone], Director - Aneesh Notes/Report: Glucose 86 70-99 mg/dL BUN 17 8-27 mg/dL Creatinine 0.87 0.57-1.00 mg/dL eGFR 70 >59 mL/min/1.73 BUN/Creatinine Ratio 20 12-28 Sodium 138 134-144 mmol/L Potassium 4.2 3.5-5.2 mmol/L Chloride 101 96-106 mmol/L Carbon Dioxide, Total 23 20-29 mmol/L Calcium 9.5 8.7-10.3 mg/dL Protein, Total 6.3 6.0-8.5 g/dL Albumin 4.2 3.8-4.8 g/dL Globulin, Total 2.1 1.5-4.5 g/dL Bilirubin, Total 0.7 0.0-1.2 mg/dL Alkaline Phosphatase 80 44-121 IU/L AST (SGOT) 22 0-40 IU/L ALT (SGPT) 23 0-32 IU/L LP+Non-HDL Cholesterol-55779 5 Reviewed date:07/01/2024 05:09:37 PM Interpretation: Performing Lab:[facility], [address], [place], Phone - [phone], Director - Aneesh Notes/Report: Cholesterol, Total 115 100-199 mg/dL Triglycerides 280 0-149 mg/dL HDL Cholesterol 37 >39 mg/dL VLDL Cholesterol Austyn 42 5-40 mg/dL LDL Chol Calc (NIH) 36 0-99 mg/dL Non-HDL Cholesterol 78 0-129 mg/dL US Elastography Parenchyma Reviewed date:11/12/2024 04:09:54 PM Interpretation: Performing Lab: Notes/Report: US ELASTOGRAPHY PARENCHYMA Reviewed date:09/08/2024 06:55:02 PM Interpretation: Performing Lab: Notes/Report: See Note [facility], a member of [employer] EXAMINATION: HEPATIC ELASTOGRAPHY CLINICAL INFORMATION: Nonalcoholic steatohepatitis COMPARISON: None. TECHNIQUE: Elastography of the liver was performed. Multiple measurements were obtained targeting areas which exclude large vessels. Shearwave elastography of the liver was performed. Shearwave sampling of the liver was performed multiple times targeting areas which exclude large vessels. FINDINGS: QUALITY: Adequate Elastography Vmean: 1.34 m/s V IQR/Median = 12% The interquartile range (IQR) contains the second and third quartiles, or the middle half of the data set Normal, F0 <1.35m/s Normal to mild, F1 1.35 m/s to 1.66 m/s Mild to moderate, F2 1.66 m/s to 1.77 cm/s Moderate to severe, F3 1.77 m/s to 1.99 m/s Cirrhosis, F4 >1.99 m/s LIVER: No suspicious focal abnormality in the small portion included. IMPRESSION: Elastography was performed and yields a mean score of 1.34 m/s. This correlates with a Metavir score of F0 The variability between consecutive liver stiffness acquisitions, assessed by means of the interquartile range?to-median ratio, is the most important quality criterion; when this ratio is higher than 30% for measurements given in kilopascals or higher than 15% for measurements given in meters per second, the accuracy of the technique is reduced. A standard deviation (Std) of 30% or less of the mean value is indicative of an acquisition of good quality. -------- FINAL REPORT -------- Dictated By: Ervin Nicole Dictated Date: 09/08/2024 09:43 ET Assigned Physician: Ervin Nicole Reviewed and Electronically Signed By: Ervin Nicole Signed Date: 09/08/2024 09:47 ET Workstation ID: [id number] Transcribed By: Self Edit Transcribed Date: 09/08/2024 09:43 ET IMGEAP Reviewed date:04/29/2024 03:48:16 PM Interpretation: Performing Lab: Notes/Report: See Note [facility], a member of [employer] HISTORY: The patient is a 73-year-old postmenopausal female with clinical concern for metabolic bone disease. FINDINGS: Dual energy x-ray absorptiometry of the lumbar spine and femurs is performed. The mean bone mineral density at L1-2 is 0.927 gm/cm2 which is 80% of that of young normals and 93% of that of age matched controls. This yields a T-score of -2.0 and a Z-score of -0.6 which is diagnostic of osteopenia. The mean bone mineral density of the femurs bilaterally is 0.794 gm/cm2 which is 79% of that of young normals and 96% of that of age matched controls. This yields a T-score of -1.7 and a Z-score of -0.3 which is diagnostic of osteopenia. However, the T-score of the right femoral neck is -2.5 and that of the left femoral neck is - 2.9 which is diagnostic of osteoporosis. IMPRESSION: 1. Osteoporosis. There has been a decrease of 4.4% in bone mineral density in the lumbar spine since the prior examination of 12/26/2021. There has been decrease of 1.1% in bone mineral density in the right femur and a decrease of 3.7% in bone mineral density in the left femur. 2. FRAX analysis yields a 10-year probability of major osteoporotic fracture of 23.4% and a 10-year probability of hip fracture of 6.7%. Code 91272 CT Teleradiology -------- FINAL REPORT -------- Dictated By: Frederick Carson Dictated Date: 04/24/2024 07:28 ET Assigned Physician: Frederick Carson Reviewed and Electronically Signed By: Frederick Carson Signed Date: 04/24/2024 07:30 ET Workstation ID: [id number] Transcribed By: Self Edit Transcribed Date: 04/24/2024 07:28 ET IMGEAP Reviewed date:04/29/2024 03:48:16 PM Interpretation: Performing Lab: Notes/Report: See Note [facility], a member of [facility] EXAM: SCREENING MAMMOGRAPHY, BILATERAL HISTORY: SCREENING. No additional history. COMPARISON: 01/08/2023, 10/04/2021, 12/17/2019 TECHNIQUE: Synthesized CC and MLO projections of each breast. Tomosynthesis of each breast in the CC and MLO projections. ADDITIONAL IMAGING: None Computer-aided detection was employed with the [employer] AI 3-D. TISSUE DENSITY: There are scattered areas of fibroglandular density. (BI-RADS category B) FINDINGS: RIGHT BREAST: No suspicious mass. No suspicious calcification. No distortion. No additional suspicious right breast findings LEFT BREAST: No suspicious mass. No suspicious calcification. No distortion. No additional suspicious left breast findings IMPRESSION: No mammographic evidence of malignancy. No suspicious interval change. A negative mammogram in the presence of a clinically suspicious palpable abnormality does not preclude the possibility of malignancy or alter the indications for biopsy. ASSESSMENT: BI-RADS 1: NEGATIVE RECOMMENDATION(S): 1: Routine screening mammogram BILATERAL in 1 year. -------- FINAL REPORT -------- Dictated By: Ervin Nicole Dictated Date: 04/23/2024 17:32 ET Assigned Physician: Ervin Nicole Reviewed and Electronically Signed By: Ervin Nicole Signed Date: 04/23/2024 17:37 ET Workstation ID: [id number] Transcribed By: Self Edit Transcribed Date: 04/23/2024 17:32 ET HCV Antibody-[id number] Reviewed date:10/01/2024 06:16:45 PM Interpretation: Performing Lab:[facility] [address], Phone - [phone], Director [facility] Notes/Report: Test(s) 432330-Nhpftpxpwto, Total; 700882-Mdkngqekmejtw; 248796-QTL-V was developed and its performance characteristics determined by [employer]. It has not been cleared or approved by the Food and Drug Administration. Hep C Virus Ab Non Reactive Non Reactive HCV antibody alone does not differentiate between previously resolved infection and active infection. Equivocal and Reactive HCV antibody results should be followed up with an HCV RNA test to support the diagnosis of active HCV infection. Phosphatidylethanol (PEth)-7 22568 Reviewed date:10/01/2024 06:16:45 PM Interpretation: Performing Lab:[facility], Phone - [phone], [facility] [place], [place] Notes/Report: Test(s) 618639-Xemzrcqnpxs, Total; 711283-Ihmfptkebetse; 357603-IVB-Z was developed and its performance characteristics determined by [employer]. It has not been cleared or approved by the Food and Drug Administration. PHOSPHATIDYLETHANOL Negative Phosphatidylethanol (PEth) Negative Analyzed compound: PEth 16:0/18:1. 5-newkuteqc-7-oleoyl-sn-g oolvkx-4-osdnputzpbccwh. Analysis performed by Liquid Chromatography with Tandem Mass Spectrometry (LC/MS/MS). Detection limit: 20 ng/mL PEth levels in excess of 20 ng/mL are considered evidence of moderate to heavy ethanol consumption. However, the Center for Substance Abuse Treatment (CSAT) advises caution in interpretation and use of biomarkers alone to assess alcohol use. Results should be interpreted in the context of all available clinical and behavioral information. Reference: Substance Abuse and Mental Health Services Administration (2012). The Role of Biomarkers in the Treatment of Alcohol Use Disorders , 2012 Revision. Advisory, Volume 11, Issue 2. This test was developed and its performance characteristics determined by [employer]. It has not been cleared or approved by the Food and Drug Administration. Comp. Metabolic Panel (14)-3 62111 Reviewed date:10/01/2024 06:16:45 PM Interpretation: Performing Lab:[facility] [address], Phone - [phone], [facility] [place], [place] Notes/Report: Test(s) 777258-Fgcmvwfajuc, Total; 972472-Wkzbtbrokwkgn; 374505-IXD-S was developed and its performance characteristics determined by [employer]. It has not been cleared or approved by the Food and Drug Administration. Glucose 78 70-99 mg/dL BUN 16 8-27 mg/dL Creatinine 0.91 0.57-1.00 mg/dL eGFR 66 >59 mL/min/1.73 BUN/Creatinine Ratio 18 12-28 Sodium 140 134-144 mmol/L Potassium 4.2 3.5-5.2 mmol/L Chloride 101 96-106 mmol/L Carbon Dioxide, Total 24 20-29 mmol/L Calcium 9.9 8.7-10.3 mg/dL Protein, Total 6.5 6.0-8.5 g/dL Albumin 4.4 3.8-4.8 g/dL Globulin, Total 2.1 1.5-4.5 g/dL Bilirubin, Total 0.6 0.0-1.2 mg/dL Alkaline Phosphatase 63 44-121 IU/L AST (SGOT) 20 0-40 IU/L ALT (SGPT) 21 0-32 IU/L Albumin/Creatinine Ratio,Uri ne-[id number] Reviewed date:10/01/2024 06:16:45 PM Interpretation: Performing Lab:[facility], [address] [place] [address], Phone - [phone], Director - [facility] Notes/Report: Test(s) 284614-Aqchskkxlbn, Total; 581965-Onblwxtnkmfyc; 820809-PEX-F was developed and its performance characteristics determined by [employer]. It has not been cleared or approved by the Food and Drug Administration. Creatinine, Urine 60.5 Not Estab. mg/dL Albumin, Urine <3.0 Not Estab. ug/mL Alb/Creat Ratio <5 0-29 mg/g creat Normal: 0 - 29 Moderately increased: 30 - 300 Severely increased: >300 Lipid Panel+ApoB-[id number] Reviewed date:10/01/2024 06:16:45 PM Interpretation: Performing Lab:[facility], [address] [facility], [place], Phone - [phone], Director - [facility] Notes/Report: Test(s) 973823-Nkkjpapfzkh, Total; 811700-Getahzawxfdnf; 424111-EJD-D was developed and its performance characteristics determined by [employer]. It has not been cleared or approved by the Food and Drug Administration. Cholesterol, Total 103 100-199 mg/dL Triglycerides 165 0-149 mg/dL HDL-C 39 >39 mg/dL Non-HDL Cholesterol 64 0-129 mg/dL LDL-C (NIH Calc) 37 0-99 mg/dL . Optimal < 100 Above optimal 100 - 129 Borderline 130 - 159 High 160 - 189 Very high > 189 . Apolipoprotein B 52 <90 mg/dL Desirable < 90 Borderline High 90 - 99 High 100 - 130 Very High >130 ASCVD RISK THERAPEUTIC TARGET CATEGORY APO B (mg/dL) . Very High Risk <80 (if extreme risk <70) High Risk <90 Moderate Risk <90 Vitamin D, 56-Cluzsnc-139431 Reviewed date:10/01/2024 06:16:45 PM Interpretation: Performing Lab:[facility], [address] [place] [address], [place], Phone - [phone], Director - [facility] Notes/Report: Test(s) 719154-Liwbhjnrhux, Total; 858338-Cczncsdifncfp; 219008-YPK-S was developed and its performance characteristics determined by [employer]. It has not been cleared or approved by the Food and Drug Administration. Vitamin D, 25-Hydroxy 68.2 30.0-100.0 ng/mL Vitamin D deficiency has been defined by the [place] of [employer] and an Endocrine Society practice guideline as a level of serum 25-OH vitamin D less than 20 ng/mL (1,2). The Endocrine Society went on to further define vitamin D insufficiency as a level between 21 and 29 ng/mL (2). 1. IOM ([place] of Medicine). 2010. Dietary reference intakes for calcium and D. [place]: The National Academies Press. 2. Jennifer MF, Dalia NC, Frank BISWAS, et al. Evaluation, treatment, and prevention of vitamin D deficiency: an Endocrine Society clinical practice guideline. JCEM. 2010; 96(7):1911-30. CBC With Differential/Platel et-[id number] Reviewed date:10/01/2024 06:16:45 PM Interpretation: Performing Lab:[facility] [place], [address] [facility], [place], Phone - [phone], Director - Aneesh Notes/Report: Test(s) 310447-Jxphakosyat, Total; 941896-Lxpsicctiyprn; 555124-UMH-E was developed and its performance characteristics determined by [facility]. It has not been cleared or approved by the Food and Drug Administration. WBC 5.9 3.4-10.8 x10E3/uL RBC 4.92 3.77-5.28 x10E6/uL Hemoglobin 15.5 11.1-15.9 g/dL Hematocrit 47.0 34.0-46.6 % MCV 96 79-97 fL MCH 31.5 26.6-33.0 pg MCHC 33.0 31.5-35.7 g/dL RDW 13.1 11.7-15.4 % Platelets 229 150-450 x10E3/uL Neutrophils 48 Not Estab. % Lymphs 39 Not Estab. % Monocytes 9 Not Estab. % Eos 3 Not Estab. % Basos 1 Not Estab. % Neutrophils (Absolute) 2.8 1.4-7.0 x10E3/uL Lymphs (Absolute) 2.3 0.7-3.1 x10E3/uL Monocytes(Absolute) 0.5 0.1-0.9 x10E3/uL Eos (Absolute) 0.2 0.0-0.4 x10E3/uL Baso (Absolute) 0.0 0.0-0.2 x10E3/uL Immature Granulocytes 0 Not Estab. % Immature Grans (Abs) 0.0 0.0-0.1 x10E3/uL Urinalysis, Complete-[id number] Reviewed date:10/01/2024 06:16:44 PM Interpretation: Performing Lab:[facility] [place], [address] [facility], [place], Phone - [phone], Director - Aneesh Notes/Report: Test(s) 701992-Wokdctfhzzk, Total; 452986-Ouwibpcxnzcbr; 790832-VQM-U was developed and its performance characteristics determined by [facility]. It has not been cleared or approved by the Food and Drug Administration. Test(s) 079798-Rvvqaqfibry, Total; 825659-Offjfmfijybuu; 218533-KSS-A was developed and its performance characteristics determined by [employer]. It has not been cleared or approved by the Food and Drug Administration. Specific [place] 1.026 1.005-1.030 pH 6.0 5.0-7.5 Urine-Color Yellow Yellow Appearance Clear Clear WBC Esterase Negative Negative Protein Negative Negative/Trace Glucose 3+ Negative Ketones Negative Negative Occult Blood Negative Negative Bilirubin Negative Negative Urobilinogen,Semi-Qn 0.2 0.2-1.0 mg/dL Nitrite, Urine Negative Negative Microscopic Examination Micr oscopic follows if indicated. Microscopic Examination See below: Micr oscopic was indicated and was performed. WBC 0-5 0 - 5 /hpf RBC None seen 0 - 2 /hpf Epithelial Cells (non renal) None seen 0 - 10 /hpf Casts None seen None seen /lpf Bacteria None seen None seen/Few Hemoglobin A1C Reviewed date:09/18/2024 03:03:57 PM Interpretation: Performing Lab: Notes/Report: [facility] Felicitas Mckeon MD PC Lot: [id number] Reason For Referral No Information Medications Medication SIG (Take, Route, Frequency, Duration) Notes Start Date End Date Status Repatha SureClick 140 MG/ML ADMINISTER 1 ML UNDER THE SKIN EVERY 2 WEEKS; Duration: 56 Active Paxil 30 MG 1 tablet Orally Once a day Active Prolia 60 MG/ML as directed Subcutan eous Every 26 weeks Active buPROPion HCl ER (XL) 300 MG TAKE ONE TABLET BY MOUTH EVERY MORNING Oral; Duration: 90 Active Atorvastatin Calcium 80 MG TAKE ONE TABLET BY MOUTH EVERY DAY; Duration: 90 Active Multi For Her Active Lisinopril 2.5 MG TAKE ONE TABLET BY M OUTH EVERY DAY; Duration: 90 Active Farxiga 10 MG 1 tablet Orally Once a day 01/24/2023 Active Aspirin 81 MG 1 tablet Orally Once a day Active Flonase 50 MCG/ACT 2 spray in each nost ril Nasally Once a day; Duration: 30 day(s) 09/18/2019 Not-Taking Xanax 0.5 MG 1 tablet Orally Twic e a day Active Fluticasone Propionate 50 MCG/ACT INSTILL 2 SPRAYS INTO EACH NOSTRIL DAILY; Duration: 30 Not-Taking Vitamin C Active Tamiflu 75 MG 1 capsule Orally Twi ce a day; Duration: 5 days 07/23/2024 Not-Taking Vitamin D Active Blood Glucose Test - as directed In Vitr o Once a day; Duration: 90 days 10/05/2021 Not-Taking Budesonide-Formoterol Fumarate 80-4.5 MCG/ACT INHALE 2 PUFFS TWICE DAILY; Duration: 30 Not-Taking ReliOn True Metrix Test Strips - as directed In Vitro DX:E11.22 EVERYDAY; Duration: 90 days 11/09/2020 Active Trelegy Ellipta 100-62.5-25 MCG/ACT 1 puff Inhalation Once a day 07/28/2024 Not-Taking OneTouch Delica Lancets 30G - as directed in vitro Once a day; Duration: 90 days 10/05/2021 Active Fish Oil 1000 MG 1 capsule Orally Onc e a day; Duration: 30 day(s) Active Cinnamon 500 MG 2 capsules Orally On ce a day Active [facility] Ultra Thin Lancets - as directed DX: E11.22 EVERYDAY; Duration: 100 days 11/09/2020 Active Turmeric Active Super B Complex Acti ve Biotin 77635 MCG as directed Orally Active Glucosamine Chond Complex/MSM Active Vitamin B12 1000 MCG 1 tablet Orally Onc e a day; Duration: 30 day(s) Active Pantoprazole Sodium 40 MG 1 tablet Orally Once a day; Duration: 90 days 08/06/2023 Active Metoprolol Succinate ER 25 MG TAKE ONE TABLET BY MOUTH EVERY DAY; Duration: 90 Active Immunizations Vaccine Route Administration Date Status Comme nts Zoster Unknown 09/05/2011 Administered Td (adult) preservative free Unknown 07/06/2008 Administered Td (adult) preservative free IM Intramuscular 08/12/2019 Administered RSV Unknown 05/10/2023 Administered Pneumococcal polysaccharide PCV 13 IM Intramuscular 02/21/2016 Administered Influenza-Afluria (IIV4) IM Intramuscular 03/25/2017 Admin istered Enlofipkq-7620-89 Afluria-Single IM Intramuscular 04/17/2018 Administered Influenza Vaccine, Seasonal, Quadrivalent, Recombinant, Preservative Free Unknown 03/11/2020 Administered Influenza (Fluad) Unknown 03/14/2021 Administered Influenza (Fluad) Unknown 03/16/2022 Administered Influenza IM Intramuscular 06/22/2016 Administered HABRF-80-Ujuprn Vaccine Unknown 07/13/2020 Administered EJAFZ-22-Ghkxul Vaccine Unknown 08/03/2020 Administered TZRVU-09-Wbncsg Vaccine Unknown 03/09/2021 Administered COVID-19 Pfizer BiValent Booster Unknown 03/16/2022 Administered COVID COMIRNATY Pfizer Unknown 03/07/2023 Administered COVID 19 (Pfizer 12+) Unknown 10/09/2021 Administered *PREVNAR 20 Unknown 05/10/2023 Administered *Pneumococcal polysaccharide PPV23 IM Intramuscular 03/25/2017 Administered *Influenza-Medicare-AS IM Intramuscular 04/14/2019 Adminis tered *Hdakgksoc-Gohzhyb-Gjsk Dose-65+ IM Intramuscular 04/01/2024 Administered *Bwiosmumz-Psnnvoo-Rptz Dose-65+ IM Intramuscular 03/03/2025 Administered *Influenza, High Dose Seasonal, Quadrivatent Unknown 03/07/2023 Administered Social History Tobacco Use: Social History Observation Description Date Details (start date - stop date) Former Smoker NA - NA Tobacco Use/Smoking Question Answer Notes Are you a former smoker AUDIT-C (Standard) Question Answer Notes Did you have a drink containing alcohol in the p ast year? No Points 0 Interpretation Negative Tobacco Control (Standard) Question Answer Notes Tobacco use: Former smoker How long has it been since you last smoked? Grea ter than 10 years Section Notes: Tobacco use: Quit smoking 33 years ago Exercise habits: Gardening as physical activity, no formal exercise Alcohol use: Glass of wine about a month and a half ago Problems Problem Type SNOMED Code ICD Code Onset Dates Problem Status W/U Status Risk Notes Problem Secondary polycythemia (29346664) Secondary polycythemia (D75.1) Active confirmed Problem Diabetic renal disease (294815904) Type 2 diabetes mellitus with diabetic chronic kidney disease (E11.22) Active confirmed Problem Vitamin D deficiency (83851270) Vitamin D deficiency, unspecified (E55.9) Active confirmed Problem Morbid obesity (disorder) (295761303) Morbid (severe) obesity due to excess calories (E66.01) Active confirmed Problem Mixed hyperlipidemia (655480940) Mixed hyperlipidemia (E78.2) Active confirmed Problem Chronic alcoholism in remission (851510808) Alcohol dependence, in remission (F10.21) Active confirmed Problem Tobacco user (527460177) Nicotine dependence, cigarettes, in remission (F17.211) Active confirmed Problem Recurrent major depression in remission (98148996) Major depressive disorder, recurrent, in partial remission (F33.41) Active confirmed Problem Alzheimer's disease with late onset (255896442) Alzheimer's disease with late onset (G30.1) Active confirmed Problem Mild cognitive disorder (040367282) Mild cognitive impairment, so stated (G31.84) Active confirmed Problem Obstructive sleep apnea syndrome (61306593) Obstructive sleep apnea (adult) (pediatric) (G47.33) Active confirmed Problem 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) Aural vertigo, right ear (H81.311) Active confirmed Problem Sensorineural hearing loss of bilateral ears (disorder) (569266767) Sensorineural hearing loss, bilateral (H90.3) Active confirmed Problem Chronic kidney disease due to hypertension (814304247313068) Hypertensive chronic kidney disease with stage 1 through stage 4 chronic kidney disease, or unspecified chronic kidney disease (I12.9) Active confirmed Problem Atherosclerotic heart disease of zuni coronary artery without angina pectoris (891744619722896) 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) Active confirmed Problem Angina co-occurrent and due to coronary arteriosclerosis (disorder) (97398757875755724) Atherosclerotic heart disease of zuni coronary artery with other forms of angina pectoris (I25.118) Active confirmed Problem Old myocardial infarction (7399805) Old myocardial infarction (I25.2) Active confirmed Problem Paroxysmal tachycardia (73165804) Paroxysmal tachycardia, unspecified (I47.9) Active confirmed Problem Atrial premature depolarization (457462317) Atrial premature depolarization (I49.1) Active confirmed Problem Ventricular premature depolarization (436965160) Ventricular premature depolarization (I49.3) Active confirmed Problem Gastro-esophageal reflux disease without esophagitis (415028213) Gastro-esophageal reflux disease without esophagitis (K21.9) Active confirmed Problem HALL - Nonalcoholic steatohepatitis (402094353) Nonalcoholic steatohepatitis (HALL) (K75.81) Active confirmed Problem Alopecia (30759026) Nonscarring hair loss, unspecified (L65.9) Active confirmed Problem Osteoarthritis of knee (521442027) Osteoarthritis of knee, unspecified (M17.9) Active confirmed Problem Cervical spondylosis without myelopathy (635701566) Other spondylosis with radiculopathy, cervical region (M47.22) Active confirmed Problem Lumbosacral spondylosis without myelopathy (30540817) Other spondylosis with radiculopathy, lumbar region (M47.26) Active confirmed Problem Lumbosacral spondylosis without myelopathy (71846437) Other spondylosis with radiculopathy, lumbosacral region (M47.27) Active confirmed Problem Displacement of lumbar intervertebral disc without myelopathy (28766935) Other intervertebral disc displacement, lumbar region (M51.26) Active confirmed Problem Cervicalgia (27219962) Cervicalgia (M54.2) Active confirmed Problem Sciatica (15588083) Sciatica, unspecified side (M54.30) Active confirmed Problem Age-related osteoporosis (346642579) Age-related osteoporosis without current pathological fracture (M81.0) Active confirmed Problem Chronic kidney disease stage 2 (635724568) Chronic kidney disease, stage 2 (mild) (N18.2) Active confirmed Problem Neurogenic claudication (199163945) Spinal stenosis, lumbar region with neurogenic claudication (M48.062) Active confirmed Problem Chronic kidney disease stage 3A (disorder) (922716373) Chronic kidney disease, stage 3a (N18.31) Active confirmed Problem Body mass index 30.00 to 34.99 (285057157197488) Body mass index [BMI] 31.0-31.9, adult (Z68.31) Active confirmed Problem Personal history of adenomatous and serrated colon polyps (Z86.0101) Active confirmed Problem Age-related nuclear cataract of right eye (944288540345759) Age-related nuclear cataract, right eye (H25.11) Problem resolved confirmed Problem Age-related nuclear cataract of left eye (811176019862723) Age-related nuclear cataract, left eye (H25.12) Problem resolved confirmed Problem COVID19 DANIELLE-Viru s Identified (U07.1) Problem resolved confirmed Problem Body mass index 30.00 to 34.99 (684610833250577) Body mass index [BMI] 34.0-34.9, adult (Z68.34) Problem resolved confirmed Vital Signs Heart Rate 63 /min 03/03/2025 Temperature 96.0 degrees Fahrenheit 03/03/2025 Blood pressure diastolic 56 mm Hg 03/03/2025 Oximetry 96 % 03/03/2025 Height 61 in 03/03/2025 Blood pressure systolic 110 mm Hg 03/03/2025 Weight 170 lbs 03/03/2025 BMI 32.12 kg/m2 03/03/2025 Encounters Encounter Location Date Provider Diagnosis Felicitas Mckeon MD [address] [id number] 06/29/2024 Felicitas Mckeon 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.22 ; Hypertensive chronic kidney disease with stage 1 through stage 4 chronic kidney disease, or unspecified chronic kidney disease I12.9 ; Chronic kidney disease, stage 3a N18.31 ; Major depressive disorder, recurrent, in partial remission F33.41 ; 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.10 ; Mixed hyperlipidemia E78.2 ; Obstructive sleep apnea (adult) (pediatric) G47.33 ; Age-related osteoporosis without current pathological fracture M81.0 ; Nonalcoholic steatohepatitis (HALL) K75.81 ; Alcohol dependence, in remission F10.21 ; Gastro-esophageal reflux disease without esophagitis K21.9 ; Nicotine dependence, cigarettes, in remission F17.211 and Vitamin D deficiency, unspecified E55.9 Felicitas Mckeon MD [address] [id number] 07/28/2024 Julianna Tracy Acute bronchitis due to other specified organisms J20.8 ; Acute cough R05.1 and Acute upper respiratory infection, unspecified J06.9 Felicitas Mckeon MD [address] [id number] 08/03/2024 Julianna Tracy Acute bronchitis due to other specified organisms J20.8 and Acute cough R05.1 Felicitas Mckeon MD [address] [id number] 09/17/2024 Felicitas Mckeon Encounter for genera l adult medical examination without abnormal findings Z00.00 ; Hypertensive chronic kidney disease with stage 1 through stage 4 chronic kidney disease, or unspecified chronic kidney disease I12.9 ; 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.22 ; Chronic kidney disease, stage 3a N18.31 ; Major depressive disorder, recurrent, in partial remission F33.41 ; 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.10 ; Age-related osteoporosis without current pathological fracture M81.0 ; Obstructive sleep apnea (adult) (pediatric) G47.33 ; Nonalcoholic steatohepatitis (HALL) K75.81 ; Alcohol dependence, in remission F10.21 ; Mixed hyperlipidemia E78.2 ; Gastro-esophageal reflux disease without esophagitis K21.9 ; Personal history of adenomatous and serrated colon polyps Z86.0101 ; Nicotine dependence, cigarettes, in remission F17.211 ; Vitamin D deficiency, unspecified E55.9 ; Encounter for screening for malignant neoplasm of colon Z12.11 ; Encounter for screening mammogram for malignant neoplasm of breast Z12.31 ; Encounter for screening for osteoporosis Z13.820 ; Asymptomatic menopausal state Z78.0 ; Encounter for screening for cardiovascular disorders Z13.6 ; Encounter for immunization Z23 ; Encounter for antibody response examination Z01.84 ; Encounter for screening for other viral diseases Z11.59 and Sensorineural hearing loss, bilateral H90.3 Felicitas Mckeon MD [address] [id number] 12/08/2024 Felicitas Mckeon Mild cognitive impairment of uncertain or unknown etiology G31.84 ; Pain in right knee M25.561 and Vitamin D deficiency, unspecified E55.9 Felicitas Mckeon MD [address] [id number] 03/03/2025 Felicitsa Mckeon Hypertensive chronic kidney disease with stage 1 through stage 4 chronic kidney disease, or unspecified chronic kidney disease I12.9 ; 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.22 ; Major depressive disorder, recurrent, in partial remission F33.41 ; Age-related osteoporosis without current pathological fracture M81.0 ; Obstructive sleep apnea (adult) (pediatric) G47.33 ; Alzheimer's disease with late onset G30.1 ; Dementia in other diseases classified elsewhere, mild, without behavioral disturbance, psychotic disturbance, mood disturbance, and anxiety F02.A0 ; Chronic kidney disease, stage 2 (mild) N18.2 ; Morbid (severe) obesity due to excess calories E66.01 ; Alcohol dependence, in remission F10.21 ; 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.10 ; Mixed hyperlipidemia E78.2 ; Nonalcoholic steatohepatitis (HALL) K75.81 ; Gastro-esophageal reflux disease without esophagitis K21.9 ; Nicotine dependence, cigarettes, in remission F17.211 ; Vitamin D deficiency, unspecified E55.9 ; Encounter for immunization Z23 ; Osteoarthritis of knee, unspecified M17.9 and Sciatica, unspecified side M54.30 Felicitas Mckeon [facility] [address] [place], [place] [id number] 05/04/2024 Felicitas Mckeon MD [facility] [address] [place], [place] [id number] 07/01/2024 Felicitas Mckeon MD [facility] [address] [place], [place] [id number] 07/23/2024 Felicitas Mckeon Influenza due to identified novel influenza A virus with other respiratory manifestations J09.X2 Felicitas Mckeon [facility] [address] [place], [place] [id number] 07/27/2024 Felicitas Mckeon Influenza due to identified novel influenza A virus with other respiratory manifestations J09.X2 Felicitas Mckeon [facility] [address] [place], [place] [id number] 07/27/2024 Felicitas Mckeon MD [facility] [address] [place], [place] [id number] 07/28/2024 Felicitas Mckeon MD [facility] [address] [place] [id number] 07/31/2024 Felicitas Mckeon MD [facility] [address] [place] [id number] 10/12/2024 Felicitas Mckeon MD [facility] [address] [place] [id number] 11/04/2024 Felicitas Mckeon MD [address] [place] [id number] 12/03/2024 Felicitas Mckeon 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.22 Felicitas Mckeon MD [address] [place] [id number] 12/11/2024 Felicitas Mckeon MD [facility] [address] [place], [place] [id number] 12/18/2024 Felicitas Mckeon MD [facility] [address] [place] [id number] 12/22/2024 Felicitas Mckeon MD [facility] [address] [place] [id number] 12/23/2024 Felicitas Mckeon MD [facility] [address] [place] [id number] 01/04/2025 Felicitas Mckeon MD [facility] [address] [place] [id number] 03/10/2025 [facility] [address] [facility] [address] [address] [id number] 03/16/2025 Felicitas Mckeon MD [address] [id number] 03/29/2025 Felicitas Mckeon MD [address] [id number] 01/04/2025 Felicitas Mckeon Assessments Encounter Date Diagnosis (ICD Code) Assessment Notes Treatment Notes Treatment Clinical Notes Section Notes 07/28/2024 Acute bronchitis due to other specified organisms (ICD-10 - J20.8) Reviewed with patient her recent influenza virus and her persistent cough and fatigue despite Medrol dose pack and Tamiflu use. Due to patient's persistent symptoms we will begin azithromycin to assist in resolving suspected bronchitis. Patient was also given a Trelegy inhaler and she did use this in office today with relief of cough symptoms during visit. Patient to follow-up in 1 week to reassess symptoms 07/28/2024 Acute cough (ICD-10 - R05.1) Reviewed with patient her recent influenza A infection as well as her persistent cough. She did complete a chest x-ray which was without findings yesterday. Would like patient to continue use of daily Trelegy and start azithromycin to assist in managing suspected bronchitis. 08/03/2024 Acute bronchitis due to other specified organisms (ICD-10 - J20.8) Patient was previously diagnosed with influenza A and was treated. Her symptoms have greatly improved since last visit and she has a minimal dry, nonproductive cough. Patient to continue using Tessalon Perles and Trelegy inhaler daily as needed for residual cough. Discussed with patient that cough can linger for up to 8 weeks post influenza infection and should her symptoms worsen patient to follow-up sooner than her follow-up appointment in 12/03/2024 Type 2 diabetes mellitus with diabetic chronic kidney disease (ICD-10 - E11.22) 03/03/2025 Type 2 diabetes mellitus with diabetic chronic kidney disease (ICD-10 - E11.22) Diabetes well controlled with A1C 6.3. No serious diabetic symptoms reported. Farxiga is maintaining control. - Continue Farxiga as prescribed. - Monitor A1C levels. 03/03/2025 Hypertensive chronic kidney disease with stage 1 through stage 4 chronic kidney disease, or unspecified chronic kidney disease (ICD-10 - I12.9) Blood pressure measured at 110/56. No current issues reported. 06/29/2024 Type 2 diabetes mellitus with diabetic chronic kidney disease (ICD-10 - E11.22) Controlled with current medical therapy. Continue same. She does not wish to have GLP therapy. 06/29/2024 Hypertensive chronic kidney disease with stage 1 through stage 4 chronic kidney disease, or unspecified chronic kidney disease (ICD-10 - I12.9) Stable at present. Continue current medical therapy 12/08/2024 Pain in right knee (ICD-10 - M25.561) She has been having pain to the inner medial part of the right knee for the past month. No recent trauma or deformities to the right knee. May be arthritis in nature will further evaluate starting with X Ray. 12/08/2024 Mild cognitive impairment of uncertain or unknown etiology (ICD-10 - G31.84) MOCA performed in office and scored 22/30 which warrants further testing. Recommend Petscan and MRI and she would like to proceed with further testing of reversal and treatable causes of cognitive impairment. 09/17/2024 Hypertensive chronic kidney disease with stage 1 through stage 4 chronic kidney disease, or unspecified chronic kidney disease (ICD-10 - I12.9) Stable at present. She is at a level that would be consistent with the [employer] mine trial. Continue current therapy 09/17/2024 Encounter for general adult medical examination without abnormal findings (ICD-10 - Z00.00) General healthcare up-to-date. Check routine labs. She already has a healthcare proxy 07/27/2024 Influenza due to identified novel influenza A virus with other respiratory manifestations (ICD-10 - J09.X2) 07/23/2024 Influenza due to identified novel influenza A virus with other respiratory manifestations (ICD-10 - J09.X2) 09/17/2024 Type 2 diabetes mellitus with diabetic chronic kidney disease (ICD-10 - E11.22) Controlled with current medical therapy. Continue same. She would benefit from GLP therapy but she does not wish to pursue GLP therapy. 12/08/2024 Vitamin D deficiency, unspecified (ICD-10 - E55.9) Stable on prior labs reviewed. 06/29/2024 Chronic kidney disease, stage 3a (ICD-10 - N18.31) Stable estimated GFR in the 50s. Recheck status. 03/03/2025 Major depressive disorder, recurrent, in partial remission (ICD-10 - F33.41) She has follow-up with behavioral health and her medical therapy was adjusted. She feels she is doing OK. 08/03/2024 Acute cough (ICD-10 - R05.1) See plan above. Discussed with patient that her lung sounds have greatly improved and there is no wheeze present. Discussed that cough can linger up to 8 weeks post influenza virus. Patient to continue use of Trelegy inhaler as needed as well as Tessalon Perles. She is also to follow-up sooner than her September visit if her symptoms worsen or new symptoms of concern began 07/28/2024 Acute upper respiratory infection, unspecified (ICD-10 - J06.9) Given patient's persistent symptoms despite Tamiflu and Medrol use, did obtain an updated respiratory panel to ensure she does not have any additional underlying respiratory illnesses. 03/03/2025 Age-related osteoporosis without current pathological fracture (ICD-10 - M81.0) Osteoporosis diagnosed. Prolia recommended due to kidney safety. Patient expressed concern about cost. - Recommended Prolia injection for osteoporosis. - Discussed alternative options including infusions. 06/29/2024 Major depressive disorder, recurrent, in partial remission (ICD-10 - F33.41) Stable with current medical therapy and periodic follow-up with behavioral health 09/17/2024 Chronic kidney disease, stage 3a (ICD-10 - N18.31) Her GFR had decreased into the 50s. Can recheck status to verify stability versus progression. 09/17/2024 Major depressive disorder, recurrent, in partial remission (ICD-10 - F33.41) She has follow-up with behavioral health and her medical therapy was adjusted due to increased stress. She feels she is doing a bit better. 06/29/2024 Atherosclerotic heart disease of zuni coronary artery without angina pectoris (ICD-10 - I25.10) Stable at present. Continue control of comorbidities of hypertension diabetes and hyperlipidemia 03/03/2025 Obstructive sleep apnea (adult) (pediatric) (ICD-10 - G47.33) She is not using her CPAP. Recommend consistent use of CPAP 03/03/2025 Alzheimer's disease with late onset (ICD-10 - G30.1) Tau protein elevated. MoCA score 22. PET scan centiloid score 11.66, low abnormality. Diagnosis of mild Alzheimer's disease. - Monitor cognitive status. - No medication indicated at current stage. 06/29/2024 Mixed hyperlipidemia (ICD-10 - E78.2) Controlled with current medical therapy. Continue same. 09/17/2024 Atherosclerotic heart disease of zuni coronary artery without angina pectoris (ICD-10 - I25.10) Stable at present without any active symptoms. Continue control of comorbidities of hypertension and hyperlipidemia and diabetes 09/17/2024 Age-related osteoporosis without current pathological fracture (ICD-10 - M81.0) Recommend medical therapy. 03/03/2025 Dementia in other diseases classified elsewhere, mild, without behavioral disturbance, psychotic disturbance, mood disturbance, and anxiety (ICD-10 - F02.A0) Tau protein elevated. MoCA score 22. PET scan centiloid score 11.66, low abnormality. Diagnosis of mild Alzheimer's disease. - Monitor cognitive status. - No medication indicated at current stage. 06/29/2024 Obstructive sleep apnea (adult) (pediatric) (ICD-10 - G47.33) She is not consistently using her CPAP. 03/03/2025 Chronic kidney disease, stage 2 (mild) (ICD-10 - N18.2) Kidney function is 66, stage 2 chronic kidney disease. Improved from stage 3. No blood or protein in urine. - Continue Farxiga to support kidney health. - Monitor kidney function. 06/29/2024 Age-related osteoporosis without current pathological fracture (ICD-10 - M81.0) Stable at present. Her bone density has decreased by 4%. She cannot afford medical therapy therefore continue weightbearing exercise. 09/17/2024 Obstructive sleep apnea (adult) (pediatric) (ICD-10 - G47.33) She is not using her CPAP. Recommend consistent use of CPAP 09/17/2024 Nonalcoholic steatohepatitis (HALL) (ICD-10 - K75.81) Stable on prior labs as reviewed. Her ALT has normalized. Her fib 4 index is slightly elevated. Her elastography does not show any signs of fibrosis. 06/29/2024 Nonalcoholic steatohepatitis (HALL) (ICD-10 - K75.81) Her ALT has normalized with weight loss. Her fib 4 index is minimally elevated. We can check elastography to verify that there is no early fibrosis 03/03/2025 Morbid (severe) obesity due to excess calories (ICD-10 - E66.01) Body mass index is 32, classified as morbid obesity. Obesity impacts diabetes, blood pressure, and heart health. - Recommended calorie-restricted diet. - Encouraged regular exercise, including walking. 03/03/2025 Alcohol dependence, in remission (ICD-10 - F10.21) Effectively remains in remission. 06/29/2024 Alcohol dependence, in remission (ICD-10 - F10.21) Effectively remains in remission. 09/17/2024 Alcohol dependence, in remission (ICD-10 - F10.21) Effectively remains in remission. 09/17/2024 Mixed hyperlipidemia (ICD-10 - E78.2) Stable on prior labs as reviewed. Recheck status and continue current medical therapy 03/03/2025 Atherosclerotic heart disease of zuni coronary artery without angina pectoris (ICD-10 - I25.10) Stable at present without any active symptoms. Continue control of comorbidities of hypertension and hyperlipidemia and diabetes 06/29/2024 Gastro-esophageal reflux disease without esophagitis (ICD-10 - K21.9) Symptomatically stable at present 03/03/2025 Mixed hyperlipidemia (ICD-10 - E78.2) Stable on prior labs as reviewed. Recheck status and continue current medical therapy 06/29/2024 Nicotine dependence, cigarettes, in remission (ICD-10 - F17.211) Remains in remission 09/17/2024 Gastro-esophageal reflux disease without esophagitis (ICD-10 - K21.9) Symptomatically stable at present 09/17/2024 Personal history of adenomatous and serrated colon polyps (ICD-10 - Z86.0101) Up-to-date on colonoscopy 06/29/2024 Vitamin D deficiency, unspecified (ICD-10 - E55.9) Stable on prior labs as reviewed. Recheck status and would consider vitamin D supplementation for goal level of 30+ and if possible 50+ 03/03/2025 Nonalcoholic steatohepatitis (HALL) (ICD-10 - K75.81) Stable on prior labs as reviewed. Her ALT has normalized. Her fib 4 index is slightly elevated. Her elastography does not show any signs of fibrosis. 03/03/2025 Gastro-esophageal reflux disease without esophagitis (ICD-10 - K21.9) Symptomatically stable at present 09/17/2024 Nicotine dependence, cigarettes, in remission (ICD-10 - F17.211) Remains in remission 09/17/2024 Vitamin D deficiency, unspecified (ICD-10 - E55.9) Stable on prior labs as reviewed. Recheck status and would consider vitamin D supplementation for goal level of 30+ and if possible 50+ 03/03/2025 Nicotine dependence, cigarettes, in remission (ICD-10 - F17.211) Remains in remission 03/03/2025 Vitamin D deficiency, unspecified (ICD-10 - E55.9) Vitamin D level was 68. Patient continues vitamin D supplementation. - Continue vitamin D supplementation. 09/17/2024 Encounter for screening for malignant neoplasm of colon (ICD-10 - Z12.11) Up-to-date on colon cancer screening 09/17/2024 Encounter for screening mammogram for malignant neoplasm of breast (ICD-10 - Z12.31) Up-to-date on breast cancer screening 03/03/2025 Encounter for immunization (ICD-10 - Z23) 03/03/2025 Osteoarthritis of knee, unspecified (ICD-10 - M17.9) Arthritis in knees reported by patient. Limits ability to perform formal exercise. - Encouraged self-care and physical activity as tolerated. 09/17/2024 Encounter for screening for osteoporosis (ICD-10 - Z13.820) Up-to-date on osteoporosis screening 09/17/2024 Asymptomatic menopausal state (ICD-10 - Z78.0) 03/03/2025 Sciatica, unspecified side (ICD-10 - M54.30) Persistent sciatica for over a year and a half. Received one injection with no relief. Patient declined further injections. - Discussed option for additional injections for sciatica. - Encouraged exercise to strengthen back. 09/17/2024 Encounter for screening for cardiovascular disorders (ICD-10 - Z13.6) Blood pressure stable. Can check for comorbidity of hyperlipidemia and hyperglycemia and use this data to further assess risk 09/17/2024 Encounter for immunization (ICD-10 - Z23) Vaccines up-to-date 09/17/2024 Encounter for antibody response examination (ICD-10 - Z01.84) She would be considered immune to rubeola by virtue of her age 0409/17/2024 Encounter for screening for other viral diseases (ICD-10 - Z11.59) Can screen for hepatitis C as is the general recommendation 09/17/2024 Sensorineural hearing loss, bilateral (ICD-10 - H90.3) 06/29/2024 Other This note was created with voice dictation recognition software and may contain errors of grammar and syntax. Also labs were reviewed with patient. 09/17/2024 Other This note was created with voice dictation recognition software and may contain errors of grammar and syntax. Also labs were reviewed with patient. 12/08/2024 Other Spent at least 30 min evaluating and assessing and administering MOCA test and answering patients questions 03/03/2025 Other This note was created with a combination of voice dictation recognition software in combination with voice recognition software with AI as allowed by patient consent. It may contain errors of grammar and syntax. Also labs were reviewed with patient. Plan Of Treatment Pending Test Test Name Order Date Chest 2 Views Frontal and Lat 06/11/2016 Xray: Ribs Left 06/11/2016 CBC 08/11/2020 CLOST. DIFFICILE TOXIN PANEL 02/03/2020 COMPREHENSIVE METABOLIC PANEL 08/11/2020 LIPID PROFILE 08/11/2020 STOOL CULTURE SHIGA TOXIN 02/03/2020 URINALYSIS 08/11/2020 VITAMIN D, 25-HYDROXY 08/17/2021 VITAMIN D, 25-HYDROXY 08/11/2020 HOLTER MONITOR, 7 DAYS, APPLICATION 11/02 HOLTER MONITOR, 7 DAYS, INTERPRETATION 0 12/31/2023 Urinalysis, Complete-[id number] 03/03/2025 Albumin/Creatinine Ratio,Urine-[id number] 25OH VITAMIN D 11/18/2017 COMPLETE CBC WITH DIFF 11/18/2017 COMPLETE URINALYSIS 11/18/2017 COMPREHENSIVE METABOLIC PANEL 11/18/2017 LIPID PANEL W REFLEX TO DLDL 11/18/2017 URINARY MICROALBUMIN 11/18/2017 Future Test Test Name Order Date Delia Screening Digital 11/01/2020 Next Appt Details Provider Name:Felicitas Mckeon , 06/07/2025 01:30:00 PM, [address] [place] [address], [address], [phone], Provider Name:Felicitas Mckeon 06/29/2025 02:00:00 PM, [address] [place] [address], [address], [phone], Provider Name:Felicitas Mckeon , 09/27/2025 01:00:00 PM, [address] [facility], [address], [place], [place], [phone], Insurance Providers Payer Name Payer Address Payer Phone Subscriber Number Group Number Insured Name Patient Relationship to Insured Coverage Start Date Coverage End Date MEDICARE [address] [place] [phone] [id number] Amanda Oseguera Self - patient is the insured [facility] [employer] [address] [place] [address] [phone] [id number] Amanda Oseguera Self - patient is the insured Medical (General) History Medical History History ICD Code Nondisplaced fracture of body of left ta sobia, sequela Alcohol dependence, uncomplicated Atherosclerotic heart diseas e of zuni coronary artery without angina pectoris I25.10 Old myocardial infarction I25.2 Hypertensive chronic kidney disease with stage 1 through stage 4 chronic kidney disease, or unspecified chronic kidney disease I12.9 Type 2 diabetes mellitus with diabetic c hronic kidney disease E11.22 Nonalcoholic steatohepatitis (HALL) K75. 81 Major depressive disorder, recurrent, in partial remission F33.41 Alcohol dependence, in remission F10.21 Vitamin D deficiency, unspecified E55.9 Personal history of colonic polyps Z86.0 10 Other spondylosis with radiculopathy, myesha mbosacral region M47.27 Obstructive sleep apnea (adult) (pediatr ic) G47.33 Nicotine dependence, cigarettes, in nitesh ssion F17.211 Chronic kidney disease, stage 2 (mild) N 18.2 COVID19 DANIELLE-Virus Identified (resolved 0 08/17/2021) undefined Body mass index [BMI] 34.0-34.9, adult ( resolved 12/21/2021) Age-related nuclear cataract, left eye ( resolved 09/17/2024) undefined Age-related nuclear cataract, right eye (resolved 09/17/2024) Surgical History Surgery Date(Month/Year) colon resection Cholecystectomy ankle surgery cataract-lens implants, LT 2023 cataract-lens implants, RT 2023 Hospitalization History Reason Date(Month/Year)
--- OUTSIDE RECORDS SUMMARY | 2025-04-07 15:13 | XMS_ITS | Continuity of Care Document ---
Author Organization [facility] Address [address] [facility] [address] [place] [address] Phone [phone] Social History Type Date Description Comments Sex Female Sex Unknown Medical Devices Description No Information Available Encounters Description No Information Available Assessments Description No Information Available Plan of Treatment No Information Available Functional Status Description No Information Available Mental Status Description No Information Available Referrals Description No Information Available
--- OUTSIDE RECORDS SUMMARY | 2025-04-07 15:13 | XMS_ITS | Data Portability ---
Author Organization [facility] Pain Managem ent, PAIN OFFICE Address [facility] [place] [address] [address] Care Team Providers Care Special Procedures Tech Name Role Phone LEONIE HERNANDEZ Primary Care Provider [phone] Assessment Encounter Date Assessment Date Assessment LastModified by Organization Details LastModified Time 05/22/2021 05/22/2021 Amanda Oseguera is a 70 year old woman with low back pain radiating into the right lower extremity with numbness in both thighs. On exam ,she has pain on flexion. MRI Lumbar spine shows Interval development of central right paracentral disc extrusion at L4- 5 causing posterior displacement and distortion of the thecal sac. Osteophytic ridging at L4-5 on the left with subarticular disc protrusion. Possible impact on exiting left L4 nerve root by osteophyte . Loss in height with posterior aspect of the L5 vertebral body bone marrow edema consistent with active fracture which has known bilateral pars interarticularis defect . Trial of Lumbar epidural steroid injections under fluoroscopic guidance was recommended. The risks and benefits of the procedure were discussed in detail. She wishes to proceed. An appointment has been booked for the same. She needs a hammer driver on the day of the procedure. [email or web address] Not available 05/22/2021 16:18:11 09/19/2023 09/19/2023 Amanda Oseguera is a 70 year old woman with low back pain radiating into the right lower extremity with numbness in both thighs. On exam ,she has pain on flexion.MRI Lumbar spine shows Bilateral L5 pars defects with mild anterolisthesis and high-grade bilateral L5-S1 foraminal stenoses. Disc bulge and an inferiorly projecting central extrusion at L4-5, with mild--moderate spinal stenosis and moderate bilateral foraminal stenosis . Trial of Lumbar epidural steroid injections under fluoroscopic guidance was recommended. The risks and benefits of the procedure were discussed in detail. She wishes to proceed. An appointment has been booked for the same. She needs a hammer driver on the day of the procedure. feng Not available 09/19/2023 10:37:37 09/24/2023 09/24/2023 Amanda Oseguera is a 73 year old woman with low back pain radiating into the right lower extremity with numbness in both thighs. On exam ,she has pain on flexion.MRI Lumbar spine shows Bilateral L5 pars defects with mild anterolisthesis and high-grade bilateral L5-S1 foraminal stenoses. Disc bulge and an inferiorly projecting central extrusion at L4-5, with mild--moderate spinal stenosis and moderate bilateral foraminal stenosis . She is here for a trial of Lumbar epidural steroid injections under fluoroscopic guidance . The risks and benefits of the procedure were discussed in detail. She wishes to proceed. She will follow up in six weeks feng Not available 09/24/2023 15:36:02 11/18/2023 11/18/2023 Amanda Oseguera is a 70 year old woman with low back pain radiating into the right lower extremity with numbness in both thighs. On exam ,she has pain on flexion.MRI Lumbar spine shows Bilateral L5 pars defects with mild anterolisthesis and high-grade bilateral L5-S1 foraminal stenoses. Disc bulge and an inferiorly projecting central extrusion at L4-5, with mild--moderate spinal stenosis and moderate bilateral foraminal stenosis . Repeat Lumbar epidural steroid injections under fluoroscopic guidance was recommended. The risks and benefits of the procedure were discussed in detail. She wishes to proceed.She wants to discuss her options with Dr. Hernandez , her PCP and will call for an appointment. She needs a hammer driver on the day of the procedure. [email or web address] Not available 11/19/2023 15:45:11 Plan of Treatment Reminders Order Date Submit Date Provider Last Modified By Organization Details Last Modified Time Details Appointments None record ed. Lab None record ed. Referral None record ed. Procedures None record ed. Surgeries None record ed. Imaging None record ed. Medication Orders None record ed. Patient TargetsNo targets recorded. Patient Instructions Encounter Date Encounter Id Patient Instructions Last Modified By Organization Details Last Modified Time 05/22/2021 [id number] She was advised against bed rest lasting longer than four days and to continue activities as tolerated. [email or web address] Not available 05/22/2021 16:12:04 09/19/2023 [id number] She was advised against bed rest lasting longer than four days and to continue activities as tolerated. [email or web address] Not available 09/19/2023 10:34:56 09/24/2023 [id number] She was advised against bed rest lasting longer than four days and to continue activities as tolerated. [email or web address] Not available 09/24/2023 15:33:49 11/18/2023 [id number] She was advised against bed rest lasting longer than four days and to continue activities as tolerated. [email or web address] Not available 11/18/2023 16:35:01 Reason for Referral None Reported. Problems Name Problem SNOMED Code Status Onset Date Resolution Date Notes Provider Name and Address Organization Details Recorded Time Lumbosacral radiculopathy 6167826 Active Jaja spencer MD [address] [facility] [address], [place], [address], [place] [facility] 15:04:02 Degeneration of lumbar intervertebral disc 60884680 Active Jaja spencer MD [address] [facility] [address], [place], [address], [place] [facility] 15:04:15 Problem Notes None recorded. Procedures Surgical History Date Name Laterality Status Provider Name and Address Organization Details Recorded Time 09/24/19 24 Lumbar Epidural steroid injection under fluoroscopic guidance completed Jaja Lemon MD [address] [facility] [address], [place], [address], [place] [facility] 09/24/2023 15:35:13 Cholecystectomy completed Jaja Lemon MD [address] [facility] [address], [place], [address], [place] [facility] 05/22/2021 15:08:40 operation on intestine completed Jaja Lemon MD [address] [facility] , [address], [place], [address], [place] [facility] 05/22/2021 15:09:38 open reduction of dislocation of ankle completed Jaja Lemon MD [address] , [address], [place], [address], [facility] - Pain Management 05/22/2021 15:10:02 Imaging Results None recorded. Procedure Notes None recorded. Medical Equipment None Reported. Allergies Allergen ID Allergen Name Allergen Category Reaction Reaction Severity Criticality Documentation Date Start Date Code Code System Note Provider Name and Address Organization Details Recorded Time Substance with sulfonami de structure and antibacte rial mechanism of action (substanc e) medicatio n Not available Not available Not available 05/22/2021 [id number] SNOMED Jaja spencer MD [address] , [address], [place], [address], [facility] - Pain Management 14:58:18 Medications Name Sig Start Date Stop Date Status Note LastModified by Organization Details LastModified Time atorvastati n 80 mg tablet TAKE ONE TABLET BY MOUTH EVERY DAY active Not Available Not Available No t Available azithromyci n 250 mg tablet TAKE 2 TABLETS ON FIRST DAY , THEN 1 TABLET DAILY FOR 4 DAYS 05/22 completed Not Available Not Available Not Available ofloxacin 0.3 % eye drops INSTILL ONE DROP INTO AFFECTED EYE FOUR TIMES A DAY DIRECTED START 3 DAYS BEFORE SURGERY active Not Available Not Available No t Available ondansetron HCl 4 mg tablet TAKE ONE TABLET BY MOUTH FOUR TIMES A DAY FOR 7 DAYS 09/18 completed Not Available Not Available Not Available alprazolam 0.5 mg tablet TAKE 1 TABLET TWO TIMES DAILY AND 1 TABLET DAILY NEEDED active Not Available Not Available No t Available famotidine 20 mg tablet TAKE ONE TABLET BY MOUTH AT BEDTIME NEEDED 05/22 completed Not Available Not Available Not Available benzonatate 100 mg capsule TAKE ONE CAPSULE BY MOUTH THREE TIMES A DAY NEEDED COUGH FOR 5 DAYS SWOLLOW WHOLE, DON'T CHEW. 05/22 completed Not Available Not Available Not Available paroxetine 20 mg tablet TAKE ONE TABLET BY MOUTH EVERY DAY active Not Available Not Available No t Available pantoprazol e 40 mg tablet,barber yed release TAKE ONE TABLET BY MOUTH EVERY DAY active Not Available Not Available No t Available prednisone 50 mg tablet TAKE ONE TABLET BY MOUTH EVERY DAY IN THE MORNING FOR 3 DAYS UNTIL FINISHED 05/22 completed Not Available Not Available Not Available omeprazole 20 mg capsule,del ayed release TAKE 1 CAPSULE BY MOUTH 30 MINUTES BEFORE A MEAL TWICE A DAY 09/18 completed Not Available Not Available Not Available metoprolol succinate ER 25 mg tablet,exte nded release 24 hr TAKE ONE TABLET BY MOUTH EVERY DAY active Not Available Not Available No t Available methylpredn isolone 4 mg tablets in a dose pack TAKE SIX TABLETS FOR 1 DAY, THEN FIVE TABLETS FOR 1 DAY, THEN FOUR TABLETS FOR 1 DAY,THEN THREE TABLETS FOR 1 DAY, THEN TWO TABLETS FOR 1 DA 05/22 completed Not Available Not Available Not Available albuterol sulfate HFA 90 mcg/actuati on aerosol inhaler TAKE TWO PUFFS BY MOUTH EVERY FOUR TO SIX HOURS NEEDED FOR DYSPNEA active Not Available Not Available No t Available lisinopril 2.5 mg tablet TAKE ONE TABLET BY MOUTH EVERY DAY active Not Available Not Available No t Available ipratropium bromide 21 mcg (0.03 %) nasal spray INHALE TWO SPRAYS INTRANASA LLY THREE TIMES A DAY DIRECTED active Not Available Not Available No t Available rosuvastati n 40 mg tablet TAKE ONE TABLET BY MOUTH EVERY DAY 09/18 completed Not Available Not Available Not Available bupropion HCl XL 300 mg 24 hr tablet, extended release TAKE ONE TABLET BY MOUTH EVERY MORNING active Not Available Not Available No t Available milk thistle active Not Available Not Available Not Available Fish Oil active Not Available Not Avai lable Not Available biotin active Not Available Not Availa ble Not Available Vitamin D3 active Not Available Not Av ailable Not Available Super B Complex active Not Available Not Available Not Available Centrum active Not Available Not Avail able Not Available Vitamin B12 active Not Available Not A vailable Not Available Cinnamon active Not Available Not Avai lable Not Available Probiotic active Not Available Not Rachel ilable Not Available glucosamine 116 mg-chondroi tin 100 mg-dietary supplement no.25 capsule Take by oral route. active Not Available Not Available No t Available Farxiga active Not Available Not Avail able Not Available Xigduo XR 10 mg-500 mg tablet,exte nded release TAKE ONE TABLET BY MOUTH EVERY DAY 09/18 completed Not Available Not Available Not Available Praluent Pen 150 mg/mL subcutaneou s pen injector INJECT 1ML SUBCUTANE OUS EVERY 2 WEEKS DIRECTED active Not Available Not Available No t Available Repatha SureClick 140 mg/mL subcutaneou s pen injector ADMINISTE R 1 ML UNDER THE SKIN EVERY 2 WEEKS active Not Available Not Available No t Available Plenvu 140 gram-9 gram-5.2 gram powder packs TAKE 3 PACKETS DISSOLVED IN WATER DIRECTED 05/22 completed Not Available Not Available Not Available turmeric active Not Available Not Avai lable Not Available aspirin 81 mg capsule Take 1 capsule every day by oral route. active Not Available Not Available No t Available Vitals Date Recorded Body height Body mass index (BMI) Body weight Heart rate Oxygen saturation Oxygen saturation in Arterial blood by Pulse oximetry Pain severity - 0-10 verbal numeric rating [Score] - Reported Systolic And Diastolic Provider Name and Address Organization Details Last Updated DateTime 4 155.58 cm 30.9 kg/m2 00270.7 4 g 63 /min 96 % 96 % 8 180/76 mm[Hg] Minna Kearney [facility] Pain Management 4 10:01:56 Date Recorded Body height Heart rate Oxygen saturation Oxygen saturation in Arterial blood by Pulse oximetry Systolic And Diastolic Provider Name and Address Organization Details Last Updated DateTime 4 155.58 cm 67 /min 98 % 98 % 137/57 mm[Hg] Ami Ferris [facility] Pain Management 4 15:12:55 Date Recorded Body height Heart rate Oxygen saturation Oxygen saturation in Arterial blood by Pulse oximetry Pain severity - 0-10 verbal numeric rating [Score] - Reported Systolic And Diastolic Provider Name and Address Organization Details Last Updated DateTime 4 155.58 cm 56 /min 95 % 95 % 7 129/63 mm[Hg] [facility] 14:35:56 Date Recorded Body height Body mass index (BMI) Body weight Heart rate Oxygen saturation Oxygen saturation in Arterial blood by Pulse oximetry Pain severity - 0-10 verbal numeric rating [Score] - Reported Systolic And Diastolic Provider Name and Address Organization Details Last Updated DateTime 1 154.94 cm 32.3 kg/m2 52041.3 g 55 /min 97 % 97 % 5 140/63 mm[Hg] Jaja spencer MD [facility] [place] [facility] , [address], [place], [address], [place] [facility] 14:56:56 Social History Question Answer Notes LastModified by Organizat ion Details LastModified Time Tobacco Smoking Status Former Smoker quit 30 years ago Jaja Lemon MD [address] [place] [address] , [address], [place], [address], [place] [facility] 05/22/2021 15:06:36 Are You Blind Or Do You Have Difficulty Seeing? Yes Glasses Information not available 05/22/2021 In The 14 Days Before Symptom Onset, Have You Had Close Contact With A Laboratory-confir med COVID-19 While That Case Was Ill? No Information not available 05/22/2021 In The 14 Days Before Symptom Onset, Have You Had Close Contact With A Person Who Is Under Investigation For COVID-19 While That Person Was Ill? No Information not available 05/22/2021 Have You Been To An Area Known To Be High Risk For COVID-19? No Information not available 05/22/2021 Are You Deaf Or Do You Have Serious Difficulty Hearing? Yes Information not available 05/22/2021 What Is The Highest Grade Or Level Of School You Have Completed Or The Highest Degree You Have Received? [id number] Information not available 05/22/2021 What Is Your Relationship Status? Single Information not available 05/22/2021 Do You Have Difficulty Walking Or Climbing Stairs? Yes Information not available 05/22/2021 Sex: Unknown Functional Status Question Answer Note LastModified by Organizat ion Details LastModified Time Do you use any illicit or recreational drugs? No Information not available 05/22/2021 What is your level of alcohol consumption? None quit 6 years ago Information not available 05/22/2021 Are you currently employed? No [facility] Information not available 05/22/2021 Do you have difficulty doing errands alone? No Information not available 05/22/2021 Do you have difficulty dressing, bathing, grooming, or toileting? No Information not available 05/22/2021 Mental Status Question Answer Note LastModified by Organizat ion Details LastModified Time Do you feel stressed (tense, restless, nervous, or anxious, or unable to sleep at night)? [id number] Information not available 05/22/2021 Do you have difficulty concentrating, remembering or making decisions? No Information no t available 05/22/2021 Family History Relationship Description Onset Age of this Age Resolved Age Notes LastModified by Organization Details LastModified Time Mother Coronary arterioscler osis [email or web address] Not available 05/04 15:04:33 Mother Malignant neoplastic disease [email or web address] Not available 05/04 15:05:02 Father Coronary arterioscler osis [email or web address] Not available 05/04 15:04:43 Father Malignant neoplastic disease [email or web address] Not available 05/04 15:05:02 Medical History Condition Response Anxiety Disorder Y Diabetes Y Coronary Artery Disease Y Arthritis Y Depression Y GERD/Reflux Y Gynecological HistoryNo gynecological history recorded. Obstetrics History GPAL:G 0 P 0 0 0 0 Past Encounters Encounter ID Performer Location Encounter Start Date Encounter Closed Date Diagnosis/Indication Diagnosis SNOMED-CT Code Diagnosis ICD10 Code Diagnosis IMO Codes Diagnosis Note [id number] Jaja Lemon MD PAIN OFFICE [address] [facility] [place] [address] 05/22/2021 14:42:48 05/22/2021 16:21:05 Degeneration of lumbar intervertebral disc 45449318 M51.36 Lumbosacra l radiculopathy 6247234 M54.17 [id number] Jaja Lemon MD PAIN OFFICE [address] [facility] [place] [address] 09/19/2023 09:54:07 09/19/2023 10:57:27 Lumbosacral radiculopathy 9600178 M54.17 Degenerati on of lumbar intervertebral disc 02074207 M51.36 [id number] Jaja Lemon MD PAIN OFFICE [address] [facility] [place] [address] 09/24/2023 14:57:36 09/24/2023 16:14:36 Lumbosacral radiculopathy 3793882 M54.17 Degenerati on of lumbar intervertebral disc 25542657 M51.36 [id number] Jaja Lemon MD PAIN OFFICE [address] [facility] [address] [place] [address] 11/18/2023 14:33:58 11/19/2023 15:48:17 Lumbosacral radiculopathy 4434469 M54.17 Degenerati on of lumbar intervertebral disc 82685612 M51.36 Health Concerns Section Related Observation LastModified by Organization Detai ls LastModified Time None Recorded Concern Status LastModified by Organization Details LastModified Time None Recorded Advance Directives Directive None Recorded Payers Insurance Date Sequence Insurance Name Policy Number Policy Cuellar Covered Member ID Cuellar Member ID Guarantor Name 11/15/2023 1 [place] [employer] Amanda Oseguera [id number] Amanda Oseguera 11/15/2023 2 [place] [id number] Amanda Oseguera [id number] Amanda Oseguera Notes Date Note Type Note Provider Name and Address Organization Details Recorded Time 05/22/2021 text/html Amanda Oseguera is a 70 year old woman with complaints of low back pain radiating into right lower extremity . The pain started spontaneously two months ago. She has been having numbness in both thighs for the past few years. Pain is greater with activity and walking. Pain is relieved with rest and sitting. Pain level is 5/10. She has no history of bladder or bowel incontinence.MRI Lumbar spine shows Interval development of central right paracentral disc extrusion at L4- 5 causing posterior displacement and distortion of the thecal sac. Osteophytic ridging at L4-5 on the left with subarticular disc protrusion. Possible impact on exiting left L4 nerve root by osteophyte . Loss in height with posterior aspect of the L5 vertebral body bone marrow edema consistent with active fracture which has known bilateral parsinterarticularis defectShe had physical therapy at [facility] and felt increased pain after PT. She had a course of oral of steroids which helped. Jaja Lemon MD [address] , [address], [place], [address], [facility] - Pain Management 05/24/2021 09:14:26 09/19/2023 text/html Amanda Oseguera is a 70 year old woman with complaints of low back pain radiating into left lower extremity . The pain started spontaneously two months ago. She has been having numbness in both thighs for the past few years. Pain is greater with activity and walking. Pain is relieved with rest and sitting. Pain level is 5/10. She has no history of bladder or bowel incontinence.MRI Lumbar spine shows Bilateral L5 pars defects with mild anterolisthesis and high-grade bilateral L5-S1 foraminal stenoses. Disc bulge and an inferiorly projecting central extrusion at L4-5, with mild--moderate spinal stenosis and moderate bilateral foraminal stenosisShe had physical therapy at [facility] and felt increased pain after PT. She had a course of oral of steroids which helped. Jaja Lemon MD [address] , [address], [place], [address], [employer] [facility] [employer] [facility] 09/19/2023 15:04:32 09/24/2023 text/html She is here for a trial of lumbar epidural steroid injection under fluoroscopic guidance. Jaja Lemon MD [address] , [address], [place], [address], [employer] [facility] [employer] [facility] 09/24/2023 16:15:40 11/18/2023 text/html Amadna Oseguera is a 73 year old woman with complaints of low back pain. She had a lumbar epidural steroid injection in September 2023 and reports 50% pain benefit for a few weeks. She feels it helped but not as much as she was hoping for. She is walking but has to rest due to pain. She has no history of bladder or bowel incontinence. Jaja Lemon MD [address] , [address], [place], [address], [employer] [facility] [employer] [facility] 11/19/2023 15:56:10 OBGyn Episode No OBEpisode recorded.
--- OUTSIDE RECORDS SUMMARY | 2025-04-07 15:13 | XMS_ITS | Clinical Summary ---
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 0 08/12/2018 Active lisinopril (PRINIVIL,ZESTRIL) tablet 2.5 mg TAKE ONE TABLET BY MOUTH EVERY DAY 5 08/13/2018 Active metFORMIN (GLUCOPHAGE-XR) ER 24 hr tablet 500 mg Take 500 mg by mouth Every evening with dinner. 5 10/06/2018 Active metoprolol succinate (TOPROL-XL) 24 hr tablet 25 mg TAKE ONE TABLET BY MOUTH EVERY DAY 5 08/14/2018 Active PARoxetine (PAXIL) 20 MG tablet TAKE ONE TABLET BY MOUTH EVERY DAY 0 10/04/2018 Active rosuvastatin (CRESTOR) tablet 40 mg TAKE ONE TABLET BY MOUTH EVERY DAY 3 09/11/2018 Active aspirin 81 MG tablet Take 81 mg by mouth daily. 0 Active Buffalo-3 1400 MG CAPS Take by mouth. 0 Active [place] 3 1000 MG CAPS Take by mouth. 0 Active vitamin E 400 UNIT capsule Take 400 Units by mouth daily. 0 Active Ascorbic Acid (VITAMIN C) 1000 MG tablet Take 1,000 mg by mouth daily. 0 Active Cholecalciferol (D3-1000) 1000 units capsule Take 1,000 Units by mouth daily. 0 Active Multiple Vitamins-Minerals (CENTRUM WOMEN PO) Take by mouth. 0 Ac tive meloxicam (MOBIC) 7.5 MG tablet Take 1 tablet (7.5 mg total) by mouth daily. 30 tablet 1 01/08/2019 Active Active Problems Problem Noted Date Diagnosed Date Tear of medial meniscus of left knee, current Family History Medical History Relation Name Comments Hyperlipidemia Brother Hypertension Brother Heart disease Father Hyperlipidemia Father Hypertension Father Heart disease Mother Hyperlipidemia Mother Hypertension Mother Relation Name Status Comments Brother Father Mother Social History Tobacco Use Types Packs/Day Years Used Date Smoking Tobacco: Never Smokeless Tobacco: Never Alcohol Use Standard Drinks/Week Comments No 0 (1 standard drink = 0.6 oz pur e alcohol) Sex and Gender Information Value Date Recorded Sex Assigned at Not on file Gender Identity Not on file Sexual Orientation Not on file Last Filed Vital Signs Vital Sign Reading Time Taken Comments Blood Pressure - - Pulse - - Temperature - - Respiratory Rate - - Oxygen Saturation - - Inhaled Oxygen Concentration - - Weight 89.8 kg (198 lb) 12/15/2018 11:42 AM EDT Height 156.2 cm (5' 1.5 ) 12/15/2018 11:42 AM ED T Body Mass Index 36.81 12/15/2018 11:42 AM EDT Plan of Treatment Health Maintenance Due Date Last Done Comments Hepatitis C Screening 1950 COVID-19 Vaccine (#1) 1950 Depression Screening 1962 BMI Counseling 1968 Preventative Health Evaluation 1968 DTap / Tdap / Td (1 - Tdap) 1969 Colon Cancer Screening (Colonoscopy) 1995 Breast Cancer Screening (Mammogram) 2000 Shingrix-Zoster Vaccine (1 of 2) 2000 Fall Risk Assessment 2015 Osteoporosis Screening (DEXA Scan) 2015 Pneumococcal Vaccine (1 of 1 - PCV) 2015 Influenza Vaccine (#1) 2025 RSV Adult > 60+ Yrs or Pregn ant (1 - 1-dose 75+ series) 2025 Hepatitis B Vaccines Aged Out No long er eligible based on patient's age to complete this topic RSV Ped < 20 months Aged Out No longe r eligible based on patient's age to complete this topic Care Teams Wet Plant Operator Relationship Specialty Start Date End Date Felicitas Mckeon MD [address] [place] [id number] PCP - General Internal Medicine 10/13/18
--- OUTSIDE RECORDS SUMMARY | 2025-04-07 15:13 | XMS_ITS | Patient Health Record ---
Author Organization [facility] Address [address] [place] [id number] Care Team Providers Care Theatrical Scenic Designer Name Role Phone LEONIE HERNANDEZ MD Primary Care Provider Unavail able Susan Mendoza Unavailable [phone] Allergies Allergen (clinical drug ingredient) Drug/Non Drug Allergy documented on EMR Reaction Allergy Type Onset Date Status Information temporarily unavailable SULFA (uncoded) Unknown Allergy Active Reason For Referral No Information Medications Medication SIG (Take, Route, Frequency, Duration) Notes Start Date End Date Status Metoprolol Succinate ER 25 MG ER 1 ORAL daily; Duration: -3 [facility] 10/06/2012 Active Fish Oil 1200MG 1 ORAL daily; Durati on: - [facility] 10/06/2012 Active Lisinopril 2.5MG 1 ORAL daily; Durati on: - [facility] 10/06/2012 Active Vitamin B12 100 MCG Orally Active ALPRAZolam 0.50MG 1 ORAL twice daily; Duration: 10 [facility] 10/06/2012 Active Estrace 0.1 MG/GM 1 GRAM Vaginal TWICE A WEEK; Duration: 365 days For PE's 10/07/2014 Active Aspirin EC 81MG 1 ORAL daily; Durati on: - [facility] 10/06/2012 Active Wellbutrin XL 1 tablet in the morn ing Orally Once a day Active PARoxetine HCl 20 MG 1 tablet in the mor rayna Orally Once a day Active Cinnamon 500 MG 2 Orally DAILY Active Atorvastatin Calcium 80 MG 1 tablet Oral ly Once a day Active Vitamin C 500MG 1 ORAL twice daily; Duration: -3 [facility] 10/06/2012 Active Milk Thistle 1000 MG Orally Active Vitamin D3 1000 IU ORAL daily; Duration : - [facility] 10/06/2012 Active Turmeric Curcumin 500 MG Orally Active Multivitamins 1 ORAL daily; Durati on: -3 [facility] 10/06/2012 Active Rosuvastatin Calcium 20 MG 1 tablet Oral ly Once a day Active NexIUM 50 MG 1 ORAL prn [facility] 10/06/2012 Activ e Super B Complex Acti ve buPROPion HCl ER (SR) 200 MG 1 tablet Orally Twice a day Active Problems Problem Type SNOMED Code ICD Code Onset Dates Problem Status W/U Status Risk Notes Problem Postmenopausal atrophic vaginitis (91297518) Postmenopausal atrophic vaginitis (N95.2) Active confirmed Problem Age-related osteoporosis (635718870) Age-related osteoporosis without current pathological fracture (M81.0) Active confirmed Problem Hyperlipidemia (18843196) Other and unspecified hyperlipidemia (272.4) Active confirmed Major Problem Depressive disorder (77857920) Depressive disorder, not elsewhere classified (311) Active confirmed Major Problem Benign essential hypertension (3748916) Essential hypertension, benign (401.1) Active confirmed Major Problem Acute myocardial infarction (disorder) (17239466) Acute myocardial infarction, unspecified site (410.9) Active confirmed Diag Problem Chronic ischemic heart disease (940160871) Unspecified chronic ischemic heart disease (414.9) Active confirmed Major Problem Osteoporosis (34932303) Unspecified osteoporosis (733.00) Active confirmed Diag Problem Gynecological examination normal (337587774366081) Routine gynecological examination (V72.31) Active confirmed Problem Screening for malignant neoplasm of colon (236669425) Special screening for malignant neoplasms, colon (V76.51) Active confirmed Major Plan Of Treatment Pending Test Test Name Order Date MAMMOGRAM, SCREENING 10/07/2014 1,25OH VITAMIN D 07/13/2015 COMPREHENSIVE METABOLIC PANEL 07/13/2015 N-TELOPEPTIDE CROSS 07/13/2015 PTH, INTACT 07/13/2015 THIN PREP,HPV,HESHAM IF HPV+ (>29YR)(SCRN) 11/02/2016 TSH 07/13/2015 Insurance Providers Payer Name Payer Address Payer Phone Subscriber Number Group Number Insured Name Patient Relationship to Insured Coverage Start Date Coverage End Date MEDICARE [address] [place] [id number] SHARON TRINIDAD Self - patient is the insured [employer] [address] [place] [address] [id number] SHARON TRINIDAD Self - patient is the insured Medical (General) History Medical History History ICD Code Acute myocardial infarction, unspecified site 410.9 Unspecified osteoporosis 733.00 Unspecified chronic ischemic heart disea se 414.9 Depressive disorder, not elsewhere class ified 311 Other and unspecified hyperlipidemia 272 .4 Essential hypertension, benign 401.1 Surgical History Surgery Date(Month/Year) Cholecystectomy Colonoscopy Colon Resection Right Ankle Fracture [place] [facility] Hospitalization History Reason Date(Month/Year) See Surgical Hx
== END 2025-04-07 13:15 | disposition home or self-care (01) ==
LOC: HO.HOS 12:35
PROVIDERS: PCP Internal Medicine; Visit Provider Orthopaedic Surgery
DX: M17.0 Bilateral primary osteoarthritis of knee (principal)
CPT/HCPCS: 99203; G2211

== ENCOUNTER → 2025-04-07 12:46 | Outpatient (BNV) | payer MEDICARE, SELFPAY | PROVIDERS: Visit Provider Radiology Diagnostic Ultrasound | DX: M17.0 Bilateral primary osteoarthritis of knee (principal) | CPT/HCPCS: 73562 ==

== ENCOUNTER 2025-05-05 10:28 | Outpatient (AMB) | payer MEDICARE, SELFPAY ==
--- OUTSIDE RECORDS SUMMARY | 2024-12-08 09:15 | XMS_ITS ---
Author Organization Felicitas Mckeon MD Address [address] [phone] Care Team Providers Care Banquet Prep Cook Name Role Phone Felicitas Mckeon Primary Care Provider REASON FOR VISIT 2m f/u MOCA Encounters Encounter Location Date Provider Diagnosis Felicitas Mckeon MD [address] [place] [address] [place] [phone] 12/08/2024 Felicitas Mckeon Plan Of Treatment Next Appt Details Provider Name:Felicitas Mckeon , 06/07/2025 01:30:00 PM, [address] [place] [address], [phone], Provider Name:Felicitas Mckeon , 06/29/2025 02:00:00 PM, [address] [place] [address], [phone], Provider Name:Felicitas Mckeon , 09/27/2025 01:00:00 PM, [address] [place] [address], [phone], Progress Notes * Bella OSEGUERAB:1950 ( 74 yo F)Acc No.[id number]:12/08/2024 Patient: Amanda PEREZ Provider: Heather Mckeon MD :1950 A ge:74 Y S ex:Female Date:12/08/2024 Address:[address] [place], [place] [address] [id number] Subjective: * Chief Complaints: * 1 . 2m f/u MOCA. * Medical History: Objective: * Vitals: Past Vitals:* 09/17/2024 Temp:97.3F, HR:61/min, BP:Si tting Right Arm: 114/58mm Hg, Wt:167lbs, BMI:31.55Index, Ht:61in, Oxygen sat %:98% * 08/03/2024 Temp:96.6F, HR:80/min, Ht:61 in, Oxygen sat %:97% * 07/28/2024 HR:78/min, Ht: 61 in, Oxygen sat %:97% Assessment: Plan: * Treatment: * Images: Billing Information: * Visit Code: * Procedure Codes: * Electronic signature of Dorothy Mckeon MD on 05/05/2025 at 12:00 PM EST Sign off status: Pending * Provider: Heather Mckeon MD Date: 0 12/08/2024 Generated for Teo newman/Judah/Rocco on: 1 07/06/2024 12:00 PM EST
--- NOTE | 2025-05-05 10:30 | MHC.OFFVIS ---
Vital Signs 05/05/25 10:50 Height 5 ft 1 in Weight 170 lb BMI 32.1 Intake Visit Reasons: Bilateral knee pain, Low back pain Intake Note: Amanda is a 74 year old female who presents with complaints of progressively worsening bilateral knee pains as well as progressively worsening low back pain which radiates down her left leg. The patient describes her back pain as sharp in nature. She did have a cortisone injection given into her low back approximately 1 year ago which gave her minimal relief. She also reports intermittent weakness in her left leg. She describes her knee pains as achy in nature. She denies any locking or giving way. She wishes to hold off on surgery if at all possible. She has failed the last 3 months of conservative treatment which has included Tylenol, anti-inflammatory medicines, a home exercise program and physical therapy exercises. Allergies Sulfa (Sulfonamide Antibiotics) Allergy (Verified 05/05/25 10:35) Unknown Medication List - Last Reconciled 05/05/25 by Keo Richards MD alprazolam 0.5 mg PO BEDTIME PRN aspirin 81 mg PO DAILY atorvastatin (Lipitor) 80 mg PO DAILY blood-glucose meter (Blood Glucose Monitoring kit) As directed bupropion HCl XL 300 mg PO QAM cinnamon bark (Cinnamon) 1,000 mg PO DAILY lisinopril 2.5 mg PO DAILY metoprolol succinate ER 25 mg PO DAILY omega 9-rky-wzi-fish oil 1,000 (120-180) mg (Fish Oil) 1 cap PO BID omeprazole 20 mg PO DAILY paroxetine HCl 20 mg PO DAILY turmeric root extract 538 mg PO DAILY [facility] Medical History (Updated 05/05/25 @ 11:04 by Keo Richards MD) Bilateral knee pain Social History Alcohol intake: current Alcohol intake frequency: holidays/special occasions only Patient Tobacco Use Status: Never used Tobacco Current occupational status: retired Physical Exam Vital Signs: BMI result Body Mass Index 32.1 Back/Spine/Pelvis Other: Low back examination shows left-sided paraspinal muscle tenderness, pain with range of motion, positive straight leg raise test on the left at 70 degrees, 4/5 strength with testing of her left hip flexors and knee extensors when compared to 5/5 strength on her right side Extrem Other: Bilateral knee examination shows minimal effusions, palpable crepitus with range of motion, pain with range of motion, no instability Office Procedures AMB Joint Injection/Aspiration Joint Injection/Aspiration Primary Site: Left Knee Prep: site was prepped using aseptic technique Injected: 60 mg of, Durolane, with 3 mL of and 1% plain Lidocaine Procedure: The patient tolerated the procedure well Coding 89161 - Large joint Procedure code (CPT) selection complete AMB Joint Injection/Aspiration Joint Injection/Aspiration Primary Site: Right Knee Prep: site was prepped using aseptic technique Injected: 60 mg of, Durolane, with 3 mL of and 1% plain Lidocaine Procedure: The patient tolerated the procedure well Coding 42773 - Large joint Procedure code (CPT) selection complete Results Reviewed Results Reviewed: X-rays of the patient's bilateral knees taken previously show joint space narrowing, subchondral sclerosis, no acute bony Assessment & Plan Assessment & Plan (1) Low back pain radiating to left lower extremity: Code(s): M54.50 - Low back pain, unspecified; M79.605 - Pain in left leg Category: Medical (2) Osteoarthritis of left knee: Code(s): M17.12 - Unilateral primary osteoarthritis, left knee Category: Medical (3) Osteoarthritis of right knee: Code(s): M17.11 - Unilateral primary osteoarthritis, right knee Category: Medical (4) Bilateral knee pain: Code(s): M25.561 - Pain in right knee; M25.562 - Pain in left knee Category: Medical Plan Ms. Oseguera presents with progressively worsening bilateral knee pains due to osteoarthritis. The risks and benefits of bilateral knee Durolane viscosupplementation injections were discussed at length with the patient. The patient wished to proceed. She tolerated the injections well. She also has progressively worsening low back pain which radiates down her left leg as well as associated left leg weakness possibly due to lumbar stenosis or a disc herniation. Thus, I will send her for an MRI of her lumbar spine for further evaluation. I will contact her by phone once the MRI results are available. She will call me prior to that time should her symptoms worsen in any way. Feel free to call me at any time should questions regarding her orthopedic management arise. I spent 22 minutes in reviewing the patient's records and imaging studies, seeing the patient and documenting in the medical record. Orders: Orders AMB Joint Injection/Aspiration Today M17.12 - Unilateral primary osteoarthritis, left knee AMB Joint Injection/Aspiration Today M17.11 - Unilateral primary osteoarthritis, right knee MR lumbar spine wo con 05/06/25 M54.50 - Low back pain, unspecified, M79.605 - Pain in left leg Coding Level of Care Code Est Pt Level 3 (39366) Complex visit Add On G2211 Diagnoses Low back pain radiating to left lower extremity M54.50; M79.605 Osteoarthritis of left knee M17.12 Osteoarthritis of right knee M17.11 Bilateral knee pain M25.561; M25.562 CPT Codes Coding - 57545 Large joint: 82362 - Large joint ([id number]) Coding - 53781 Large joint: 22457 - Large joint ([id number])
[2025-05-05 10:50] VITALS: BMI 32.1
--- OUTSIDE RECORDS SUMMARY | 2025-05-05 12:01 | XMS_ITS | Continuity of Care Document ---
Author Organization [facility] Address [address] [facility] [address] [facility] [address] [address] [place] [address] Phone [phone] Social History Type Date Description Comments Sex Female Sex Unknown Medical Devices Description No Information Available Encounters Description No Information Available Assessments Description No Information Available Plan of Treatment No Information Available Functional Status Description No Information Available Mental Status Description No Information Available Referrals Description No Information Available
--- OUTSIDE RECORDS SUMMARY | 2025-05-05 12:01 | XMS_ITS | Clinical Summary ---
Author Organization [facility] Address [address] [place] [address] Phone Care Team Providers Care Electrical And Radio Aircraft Mechanic Name Role Phone Felicitas Mckeon MD Primary Care Provider [phone] Surgical History Surgery Date Site/Laterality Comments ANKLE [...] Signed Date: 04/23/2024 17:37 ET Workstation ID: [id number] Transcribed By: Self Edit Transcribed Date: 04/23/2024 [...] Signed Date: 04/23/2024 17:37 ET Workstation ID: [id number] Transcribed By: Self Edit Transcribed Date: 04/23/2024 [...] probability of hip fracture of 6.7%. Code 27384 CT Teleradiology -------- FINAL REPORT -------- Dictated By: Frederick Carson Dictated Date: 04/24/2024 07:28 ET Assigned Physician: Frederick Carson Reviewed and Electronically Signed By: Frederick Carson Signed Date: 04/24/2024 07:30 ET Workstation ID: [id number] Transcribed By: Self Edit Transcribed Date: 04/24/2024 [...] density of the femurs bilaterally is 0.794 gm/ye0ehbrx is 79% of that of young normals [...] probability of hip fracture of 6.7%. Code 38162 CT Teleradiology -------- FINAL REPORT -------- Dictated By: Frederick Carson Dictated Date: 04/24/2024 07:28 ET Assigned Physician: Frederick Carson Reviewed and Electronically Signed By: Frederick Carson Signed Date: 04/24/2024 07:30 ET Workstation ID: [id number] Transcribed By: Self Edit Transcribed Date: 04/24/2024 07:28 ET Felicitas Mckeon MD IM DXA PROCEDURES Final Resul t from Last 3 Months or Most Recently Relevant to Health Maintenance Insurance MEDICARE [facility] Care Teams Electrical And Radio Aircraft Mechanic Relationship Specialty Start Date End Date Felicitas Mckeon MD [address] [address] PCP - General Internal Medicine 04/21/24
--- OUTSIDE RECORDS SUMMARY | 2025-05-05 12:01 | XMS_ITS | Clinical Summary ---
Author Organization [facility] Address [address] [place] [address] Care Team Providers Care Technical Supervisor Name Role Phone Felicitas Mckeon MD Primary Care Provider [phone] Allergies Active Allergy Reactions Criticality Noted Date [...] 81 mg by mouth daily. 0 Active [place]-3 1400 MG CAPS Take by mouth. 0 Active [place] 3 1000 MG CAPS Take by mouth. [...] age to complete this topic Care Teams Technical Supervisor Relationship Specialty Start Date End Date Felicitas Mckeon MD [address] [place] [id number] PCP - General Internal Medicine 10/13/18
--- OUTSIDE RECORDS SUMMARY | 2025-05-05 12:01 | XMS_ITS | Data Portability ---
Author Organization [facility] Pain Managem ent, PAIN OFFICE Address [facility] [address] [address] Care Team Providers Care Nursing Technician Name Role Phone LEONIE HERNANDEZ Primary Care Provider Assessment Encounter Date Assessment Date Assessment LastModified [...] booked for the same. She needs a personal driver on the day of the procedure. [...] booked for the same. She needs a personal driver on the day of the procedure. [...] call for an appointment. She needs a personal driver on the day of the procedure. [...] By Organization Details Last Modified Time 05/22/2021 [id number] She was advised against bed rest lasting longer than four days and to continue activities as tolerated. [email or web address] Not available 05/22/2021 16:12:04 09/19/2023 [id number] She was advised against bed rest lasting longer than four days and to continue activities as tolerated. [email or web address] Not available 09/19/2023 10:34:56 09/24/2023 [id number] She was advised against bed rest lasting longer than four days and to continue activities as tolerated. [email or web address] Not available 09/24/2023 15:33:49 11/18/2023 [id number] She was advised against bed rest lasting longer than four days and to continue activities as tolerated. [email or web address] Not available 11/18/2023 16:35:01 Reason for Referral None Reported. Problems Name Problem SNOMED Code Status Onset Date Resolution Date Notes Provider Name and Address Organization Details Recorded Time Lumbosacral radiculopathy 3607133 Active Jaja spencer MD [address] [place] , [facility] [address], [place], [address], [place] [facility] 15:04:02 Degeneration of lumbar intervertebral disc 62661724 Active Jaja spencer MD [address] [place] , [address], [place], [address], [place] [facility] 15:04:15 Problem Notes None recorded. Procedures Surgical History Date Name Laterality Status Provider Name and Address Organization Details Recorded Time 09/24/19 24 Lumbar Epidural steroid injection under fluoroscopic guidance completed Jaja Lemon MD [address] [place] , [address], [place], [address], [place] [facility] 09/24/2023 15:35:13 Cholecystectomy completed Jaja Lemon MD [address] [place] , [address], [place], [address], [place] [facility] 05/22/2021 15:08:40 operation on intestine completed Jaja Lemon MD [address] [facility] , [address], [place], [address], [place] [facility] 05/22/2021 15:09:38 open reduction of dislocation of ankle completed Jaja Lemon MD [address] , [address], [place], [address], [facility] - [facility] 05/22/2021 15:10:02 Imaging Results [...] Not available Not available Not available 05/22/2021 [id number] SNOMED Jaja spencer MD [address] , [address], [place], [address], [facility] - [facility] 14:58:18 Medications Name Sig [...] (BMI) Body weight Heart rate Oxygen saturation Pain severity - 0-10 verbal numeric rating [Score] - Reported Systolic And Diastolic Provider Name and Address Organization Details Last Updated DateTime 4 155.58 cm 30.9 kg/m2 99513.7 4 g 63 /min 96 % 8 180/76 mm[Hg] Minna Kearney [place] [facility] 4 10:01:56 Date Recorded Body height Heart rate Oxygen saturation Systolic And Diastolic Provider Name and Address Organization Details Last Updated DateTime 09/24/2023 155.58 cm 67 /min 98 % 137/57 mm[Hg] Ami Ferris [place] [facility] 09/24/2023 15:12:55 Date Recorded Body height Heart rate Oxygen saturation Pain severity - 0-10 verbal numeric rating [Score] - Reported Systolic And Diastolic Provider Name and Address Organization Details Last Updated DateTime 11/18/2023 155.58 cm 56 /min 95 % 7 129/63 mm[Hg] Minna Kearney [place] [facility] 4 14:35:56 Date Recorded Body height Body mass index (BMI) Body weight Heart rate Oxygen saturation Pain severity - 0-10 verbal numeric rating [Score] - Reported Systolic And Diastolic Provider Name and Address Organization Details Last Updated DateTime 1 154.94 cm 32.3 kg/m2 15510.3 g 55 /min 97 % 5 140/63 mm[Hg] Jaja spencer MD [address] [employer] , [address], [facility] [place], [address], [place] [facility] 1 14:56:56 Social History Question Answer Notes LastModified by Organizat ion Details LastModified Time Tobacco Smoking Status Former Smoker quit 30 years ago Jaja Lemon MD [address] , [address], [place], [address], [facility] 05/22/2021 15:06:36 Are You Blind [...] Or The Highest Degree You Have Received? [id number] Information not available 05/22/2021 What Is Your [...] 05/22/2021 Are you currently employed? No Retired -[employer] [facility] Information not available 05/22/2021 Do you have difficulty doing errands alone? No Information not available 05/22/2021 Do you have difficulty dressing, bathing, grooming, or toileting? No Information not available 05/22/2021 Mental Status Question Answer Note LastModified by Organizat ion Details LastModified Time Do you feel stressed (tense, restless, nervous, or anxious, or unable to sleep at night)? [id number] Information not available 05/22/2021 Do you have [...] available 05/04 15:05:02 Medical History Condition Response Coronary Artery Disease Y Depression Y Anxiety Disorder Y Arthritis Y Diabetes Y GERD/Reflux Y Gynecological HistoryNo gynecological history recorded. Obstetrics History GPAL:G 0 P 0 0 0 0 Past Encounters Encounter ID Performer Location Encounter Start Date Encounter Closed Date Diagnosis/Indication Diagnosis SNOMED-CT Code Diagnosis ICD10 Code Diagnosis IMO Codes Diagnosis Note [id number] Jaja Lemon MD PAIN OFFICE [address] [place] [address] 05/22/2021 14:42:48 05/22/2021 16:21:05 Degeneration of lumbar intervertebral disc 92078386 M51.36 Lumbosacra l radiculopathy 2695141 M54.17 [id number] Jaja Lemon MD PAIN OFFICE [address] [place] [address] 09/19/2023 09:54:07 09/19/2023 10:57:27 Lumbosacral radiculopathy 8026284 M54.17 Degenerati on of lumbar intervertebral disc 73968833 M51.36 [id number] Jaja Lemon MD PAIN OFFICE [address] [place] [address] 09/24/2023 14:57:36 09/24/2023 16:14:36 Lumbosacral radiculopathy 2655111 M54.17 Degenerati on of lumbar intervertebral disc 86099107 M51.36 [id number] Jaja Lemon MD PAIN OFFICE [address] [facility] [address] [place] [address] 11/18/2023 14:33:58 11/19/2023 15:48:17 Lumbosacral radiculopathy 1528110 M54.17 Degenerati on of lumbar intervertebral disc 24543169 M51.36 Health Concerns Section Related Observation LastModified by Organization Detai ls LastModified Time None Recorded Concern Status LastModified by Organization Details LastModified Time None Recorded Advance Directives Directive None Recorded Payers Insurance Date Sequence Insurance Name Policy Number Policy Cuellar Covered Member ID Cuellar Member ID Guarantor Name 11/15/2023 1 [place] [employer] Amanda Oseguera [id number] Amanda Oseguera 11/15/2023 2 [place] [id number] Amanda Oseguera [id number] Amanda Oseguera Notes Date Note Type [...] had physical therapy at [facility] and felt increased pain after PT. She had a course of oral of steroids which helped. Jaja Lemon MD [address] [place] , [address], [place], [address], [facility] - [facility] Management 05/24/2021 09:14:26 09/19/2023 text/html Amadna Oseguera is a 70 year old woman [...] had physical therapy at [facility] and felt increased pain after PT. She had a course of oral of steroids which helped. Jaja Lemon MD [address] [place] , [address], [place], [address], [email or web address] 09/19/2023 15:04:32 09/24/2023 text/html She is here for a trial of lumbar epidural steroid injection under fluoroscopic guidance. Jaja Lemon MD [address] [place] , [address], [place], [address], [email or web address] 09/24/2023 16:15:40 11/18/2023 text/html Amanda Oseguera is a 73 year old [...] or bowel incontinence. Jaja Lemon MD [address] [place] , [address], [place], [address], [facility] 11/19/2023 15:56:10 OBGyn Episode No OBEpisode recorded.
--- OUTSIDE RECORDS SUMMARY | 2025-05-05 12:01 | XMS_ITS | Patient Health Record ---
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 Name Role Phone [facility] Primary Care Provider Julianna Tracy Unavailable [phone] Allergies Allergen (clinical drug ingredient) Drug/Non Drug Allergy documented on EMR Reaction Allergy Type Onset Date Status Substance with sulfonamide structure and antibacterial mechanism of action (substance) Sulfa Antibiotics Unknown Drug Allergy Active Results Component Value Reference Range Notes Eye Exam Reviewed date:03/05/2025 01:41:25 PM Interpretation: Performing Lab: Notes/Report: Hemoglobin A1C Reviewed date:06/29/2024 06:23:00 PM Interpretation: Performing Lab: Notes/Report: [facility] ([facility]), Felicitas Mckeon MD Lot: [id number] Urinalysis, Complete-211287 Reviewed date:07/01/2024 05:09:37 PM Interpretation: Performing Lab:[facility], [address] [place] [address], [place], Phone - [phone], Director - Aneesh Notes/Report: Specific Vera 1.021 1.005-1.030 pH 6.0 5.0-7.5 Urine-Color Yellow [...] Bacteria None seen None seen/Few Vitamin D, 74-Ggbeeic-543118 Reviewed date:07/01/2024 05:09:37 PM Interpretation: Performing Lab:[facility], [address] [place] [address], Phone - [phone], Director - Aneesh Notes/Report: Vitamin D, 25-Hydroxy 45.1 30.0-100.0 ng/mL Vitamin D deficiency has been defined by the [place] [employer] and an Endocrine Society practice guideline as a level of serum 25-OH vitamin D less than 20 ng/mL (1,2). The Endocrine Society went on to further define vitamin D insufficiency as a level between 21 and 29 ng/mL (2). 1. IOM ([place] of [employer]). 2010. Dietary reference intakes for calcium and D. [place]: The National Academies Press. 2. Jennifer MF, Dalia NC, Frank BISWAS, et al. Evaluation, treatment, and prevention of vitamin D deficiency: an Endocrine Society clinical practice guideline. JCEM. 2010; 96(7):1911-30. Albumin/Creatinine Ratio,Uri ne-869361 Reviewed date:07/01/2024 05:09:37 PM Interpretation: Performing Lab:[facility], [address] [place] [address], Phone - [phone], Director - Aneesh Notes/Report: Creatinine, Urine 42.4 Not Estab. mg/dL Albumin, Urine <3.0 Not Estab. ug/mL Alb/Creat Ratio <7 0-29 mg/g creat Normal: 0 - 29 Moderately increased: 30 - 300 Severely increased: >300 Comp. Metabolic Panel (14)-3 10352 Reviewed date:07/01/2024 05:09:37 PM Interpretation: Performing Lab:[facility], [address] [place] [address], [place], Phone - [phone], Director - Aneesh Notes/Report: Glucose 86 70-99 [...] IU/L ALT (SGPT) 23 0-32 IU/L LP+Non-HDL Cholesterol-29663 5 Reviewed date:07/01/2024 05:09:37 PM Interpretation: Performing Lab:[facility], [address] [place] [address], Phone - [phone], Director - Aneesh Notes/Report: Cholesterol, Total 115 100-199 mg/dL Triglycerides 280 0-149 mg/dL HDL Cholesterol 37 >39 mg/dL VLDL Cholesterol Austyn 42 5-40 mg/dL LDL Chol Calc (NIH) 36 0-99 mg/dL Non-HDL Cholesterol 78 0-129 mg/dL US Elastography Parenchyma Reviewed date:11/12/2024 04:09:54 PM Interpretation: Performing Lab: Notes/Report: Hemoglobin A1C Reviewed date:09/18/2024 03:03:57 PM Interpretation: Performing Lab: Notes/Report: [facility] ([facility]), Felicitas Mckeon MD Lot: [id number] Urinalysis, Complete-396863 Reviewed date:10/01/2024 06:16:44 PM Interpretation: Performing Lab:[facility], [address] [place] [address], Phone - [phone], Director - Aneesh Notes/Report: Test(s) 273550-Zhzaqotoxrk, Total; 166533-Lkjwvrtlzkwqn; 042919-SPR-Q was developed and its performance characteristics determined by [employer]. It has not been cleared or approved by the Food and Drug Administration. Test(s) 549029-Mmgarfdtryr, Total; 335234-Mllrhjcqwqwly; 421311-MPF-S was developed and its performance characteristics determined by [facility]. It has not been cleared or approved by the Food and Drug Administration. Specific Vera 1.026 1.005-1.030 pH 6.0 5.0-7.5 Urine-Color Yellow [...] seen /lpf Bacteria None seen None seen/Few CBC With Differential/Platel et-442706 Reviewed date:10/01/2024 06:16:45 PM Interpretation: Performing Lab:[facility], [address] [place] [address], [place], Phone - [phone], Director - Aneesh Notes/Report: Test(s) 620238-Hnprvifqhmy, Total; 770030-Rfawbghuzttzp; 677828-SHS-R was developed and its performance characteristics determined by [employer]. It has not been cleared or approved [...] % Immature Grans (Abs) 0.0 0.0-0.1 x10E3/uL Vitamin D, 34-Hccamdn-398212 Reviewed date:10/01/2024 06:16:45 PM Interpretation: Performing Lab:[facility] [place], [address] [place] [address], Phone - [phone], Director - [facility] Notes/Report: Test(s) 017802-Gyixmtkhkix, Total; 909131-Kjmhktvsuinze; 918190-ACZ-I was developed and its performance characteristics determined by [facility]. It has not been cleared or approved by the Food and Drug Administration. Vitamin D, 25-Hydroxy 68.2 30.0-100.0 ng/mL Vitamin D deficiency has been defined by the [place] [employer] and an Endocrine Society practice guideline as a level of serum 25-OH vitamin D less than 20 ng/mL (1,2). The Endocrine Society went on to further define vitamin D insufficiency as a level between 21 and 29 ng/mL (2). 1. IOM ([place] [employer]). 2010. Dietary reference intakes for calcium and D. [place]: The National Academies Press. 2. Jennifer MF, Dalia NC, Frank BISWAS, et al. Evaluation, treatment, and prevention of vitamin D deficiency: an Endocrine Society clinical practice guideline. JCEM. 2010; 96(7):1911-30. Lipid Panel+ApoB-806654 Reviewed date:10/01/2024 06:16:45 PM Interpretation: Performing Lab:[facility] [place], [address] [place] [address], [place], Phone - [phone], Director - [facility] Notes/Report: Test(s) 343711-Ncydbyhnpam, Total; 392183-Qmjrvhbizqeuy; 522815-MSH-T was developed and its performance characteristics determined [...] <70) High Risk <90 Moderate Risk <90 Albumin/Creatinine Ratio,[facility] ne-655684 Reviewed date:10/01/2024 06:16:45 PM Interpretation: Performing Lab:[facility] [place], [address] [facility], Phone - [phone], Director - [facility] Notes/Report: Test(s) 952084-Fihabfxretd, Total; 551425-Rhbajupcqnizp; 339722-NKE-V was developed and its performance characteristics determined by [employer]. It has not been cleared or approved by the Food and Drug Administration. Creatinine, Urine 60.5 Not Estab. mg/dL Albumin, Urine <3.0 Not Estab. ug/mL Alb/Creat Ratio <5 0-29 mg/g creat Normal: 0 - 29 Moderately increased: 30 - 300 Severely increased: >300 Comp. Metabolic Panel (14)-3 21733 Reviewed date:10/01/2024 06:16:45 PM Interpretation: Performing Lab:[facility] [place], [address] [place] [address], [place], Phone - [phone], Director - Aneesh Notes/Report: Test(s) 126640-Gpwfojtmpyf, Total; 146914-Hoclrphtwnsjj; 450117-MHQ-M was developed and its performance characteristics determined by [facility]. It has not been cleared or approved [...] 0-40 IU/L ALT (SGPT) 21 0-32 IU/L Phosphatidylethanol (PEth)-7 42846 Reviewed date:10/01/2024 06:16:45 PM Interpretation: Performing Lab:[facility] [place], [address] [facility], Phone - [phone], Director - [facility] Notes/Report: Test(s) 551854-Kgdxmbosrgq, Total; 923574-Mvquyusrmkzmf; 931645-BYC-W was developed and its performance characteristics determined by [employer]. It has not been cleared or approved by the Food and Drug Administration. PHOSPHATIDYLETHANOL Negative Phosphatidylethanol (PEth) Negative Analyzed compound: PEth 16:0/18:1. 2-sjodhdvdo-8-oleoyl-sn-g uoygdy-8-vtcldunfscyuuc. Analysis performed by Liquid Chromatography with Tandem [...] developed and its performance characteristics determined by [employer]. It has not been cleared or approved by the Food and Drug Administration. HCV Antibody-907844 Reviewed date:10/01/2024 06:16:45 PM Interpretation: Performing Lab:[facility] [place], [address] [place] [address], [place], Phone - [phone], Director - [facility] Notes/Report: Test(s) 974093-Vqmlcbdgzbb, Total; 911777-Vswxmmypfwcpt; 743847-HCT-F was developed and its performance characteristics determined by [employer]. It has not been cleared or approved by the Food and Drug Administration. Hep C Virus Ab Non Reactive Non Reactive HCV antibody alone does not differentiate between previously resolved infection and active infection. Equivocal and Reactive HCV antibody results should be followed up with an HCV RNA test to support the diagnosis of active HCV infection. Hemoglobin A1C Reviewed date:03/05/2025 01:41:25 PM Interpretation: Performing Lab: Notes/Report: [facility] ([facility]), Felicitas Mckeon MD Lot: [id number] Vitamin D, 45-Mhfzcsg-763138 Reviewed date:03/09/2025 06:45:35 PM Interpretation: Performing Lab:[facility], [address] [facility], Phone - [phone], Director - Aneesh Notes/Report: Vitamin D, 25-Hydroxy 47.7 30.0-100.0 ng/mL Vitamin D deficiency has been defined by the [place] [employer] and an Endocrine Society practice guideline as a level of serum 25-OH vitamin D less than 20 ng/mL (1,2). The Endocrine Society went on to further define vitamin D insufficiency as a level between 21 and 29 ng/mL (2). 1. IOM ([place] [employer]). 2010. Dietary reference intakes for calcium and D. [place]: The National Academies Press. 2. Jennifer MF, Dalia NC, [place] BISWAS, et al. Evaluation, treatment, and prevention of vitamin D deficiency: an Endocrine Society clinical practice guideline. JCEM. 2010; 96(7):1911-30. Comp. Metabolic Panel (14)-3 30550 Reviewed date:03/09/2025 06:45:35 PM Interpretation: Performing Lab:[facility], [address] [facility], Phone - [phone], Director - Aneesh Notes/Report: Glucose 111 70-99 [...] IU/L ALT (SGPT) 24 0-32 IU/L LP+Non-HDL Cholesterol-70508 5 Reviewed date:03/09/2025 06:45:36 PM Interpretation: Performing Lab:[facility] [place], [address] [place] [address], Phone - [phone], Director - [facility] Notes/Report: Cholesterol, Total 96 100-199 mg/dL Triglycerides 257 0-149 mg/dL HDL Cholesterol 37 >39 mg/dL VLDL Cholesterol Austyn 38 5-40 mg/dL LDL Chol Calc (NIH) 21 0-99 mg/dL Non-HDL Cholesterol 59 0-129 mg/dL Phosphatidylethanol (PEth)-7 53548 Reviewed date:03/09/2025 06:45:36 PM Interpretation: Performing Lab:[facility] [place], [address] [place] [address], [place], Phone - [phone], Director - [facility] Notes/Report: PHOSPHATIDYLETHANOL Negative Phosphatidylethanol (PEth) Negative Analyzed compound: PEth 16:0/18:1. 1-byfzplhni-1-oleoyl-sn-g tnlsno-8-veeyyjebfckwyk. Analysis performed by Liquid Chromatography with Tandem [...] developed and its performance characteristics determined by [employer]. It has not been cleared or approved by the Food and Drug Administration. CR Chest Routine 2 Views Reviewed date:07/27/2024 02:49:44 PM Interpretation: Performing Lab: Notes/Report: IMGEAP Reviewed date:07/27/2024 09:17:04 PM Interpretation: Performing Lab: Notes/Report: See Note [facility], a member of [employer] XR CHEST 2 VIEWS INDICATION: Pain TECHNIQUE: [...] Signed Date: 07/27/2024 10:19 ET Workstation ID: [id number] Transcribed By: Self Edit Transcribed Date: 07/27/2024 10:19 ET Vitamin S88-724327 Reviewed date:12/18/2024 03:59:32 PM Interpretation: Performing Lab:[facility], [address] [employer], [place], Phone - [phone], Director - [facility] Notes/Report: Test(s) 352564-b-adr657 was developed and its performance characteristics determined by [employer]. It has not been cleared or approved by the Food and Drug Administration. Vitamin B12 5390 387-9791 pg/mL MR Brain Reviewed date:12/24/2024 08:22:46 AM Interpretation: [...] date:03/05/2025 01:41:25 PM Interpretation: Performing Lab: Notes/Report: QVOJ-VFU7-KDG, RSV, FLU A AN D B QUALITATIVE RT-PCR Reviewed date:07/27/2024 09:17:04 PM Interpretation: Performing Lab: Notes/Report: SARS COV-2 Not Detected Not Detected Disclaimer: The manner in which this information is used to guide patient care is the responsibility of the healthcare provider. Testing was performed using the [employer] m SARS-CoV-2 test. This test has been authorized by under an Emergency Use Authorization (EUA). This [...] Healthcare Providers can be found at: https://www.fda.gov/media /811149/download Fact sheet for Patients can be found at: https://www.fda.gov/media /801501/download Influenza A PCR Detected Not Detected This patient is positive for influenza A. If the patient is admitted, please order the Respiratory Virus Panel PCR ([facility] ID: [id number]) so our lab can subtype the influenza A, per CDC recommendations. Influenza B PCR Not Detected Not Detected RSV PCR Not Detected Not Detected US ELASTOGRAPHY PARENCHYMA Reviewed date:09/08/2024 06:55:02 PM Interpretation: Performing Lab: Notes/Report: See Note [facility], a member of [employer] EXAMINATION: HEPATIC ELASTOGRAPHY CLINICAL INFORMATION: Nonalcoholic steatohepatitis [...] Signed Date: 09/08/2024 09:47 ET Workstation ID: [id number] Transcribed By: Self Edit Transcribed Date: 09/08/2024 [...] and Electronically Signed by: Stanislaw Carey M.D. Respiratory Panel w/ SARS-Co V2-181311 Reviewed date:07/31/2024 07:09:41 AM Interpretation: Performing Lab:[facility], [address] [place] [address] Avenue, [place], Phone - [phone], Director - Aneesh Notes/Report: Clinical Information:SRC: Adenovirus [...] Detected Mycoplasma pneumoniae Not Detected Not Detected [facility]-168094 Reviewed date:12/18/2024 03:59:32 PM Interpretation: Performing Lab:[facility], [address], [place], Phone - [phone], Director - [facility] Notes/Report: Test(s) 656893-p-iae023 was developed and its performance characteristics determined by [facility]. It has not been cleared or approved by the Food and Drug Administration. TSH 1.990 0.450-4.500 uIU/mL APOE Alzheimer's Risk-333781 Reviewed date:12/18/2024 03:59:32 PM Interpretation: Performing Lab:[facility], [address], [place], Phone - [phone], Director - [facility] Notes/Report: Test(s) 803872-y-gan355 was developed and its performance characteristics determined by [facility]. It has not been cleared or approved by the Food and Drug Administration. Methodology: Patient DNA is assayed for the APOE genotype by PCR amplification of a specific region in exon 4 of the APOE gene followed by digestion with restriction enzyme Regulatory Scientist I and separation of fragments by polyacrylamide [...] For inquiries or genetic consultation, please call [facility] at . Comment: INFORMATION ABOUT THE APOE [...] the APOE4 variant and by approximately 10 iu87-vhwf for individuals with two copies of this [...] developed and its performance characteristics determined by [facility]. It has not been cleared or approved by the Food and Drug Administration. The FDA has determined that such clearance or approval is not necessary. REFERENCES Frannie Romero et al. Sex modifies the APOE-related risk of developing Alzheimer disease. Annal Neurol 2014;75(4):563-573 Bird TD. Alzheimer Disease Overview. GeneRevsarita (GeoIQ). Alec LONG et al., editors. [place]: [facility], [place], [place]. Last revised 2014. Yola JS et al. Genetic counseling and testing for Alzheimer disease: Joint practice guidelines of the [place] [employer] Genetics and the National Society of Genetic Counselors. Sandra in Med 2011;13(4)886-405. Rafal HM. Apolipoprotein E: Implications for AD neurobiology, epidemiology and risk assessment. Neurobiology of Aging 2011;32:778-790 [facility] Informed Consent Fo Reviewed date:12/18/2024 03:59:32 PM Interpretation: Performing Lab:[facility], [address], [address], [place], Phone - [phone], Director - [facility] Notes/Report: [facility] Informed Consent Form [facility] Informed Consent Form 02 Please Fax back to [phone]. Many states require laboratories to have documentation [...] of the sample when testing is complete. [facility] did not receive any documentation of informed consent for above mentioned patient and ordered tests. Please check the statement applicable to this patient and sign below so that [facility] may release the results for this patient. . [] I authorize and confirm patient consent for the above mentioned genetic test(s). . [] I have provided appropriate informed consent for the above mentioned test(s) and documentation of this consent is maintained in the patient record. . . Health care provider signature _Date . Printed name __ . Fax back to [facility] at [phone] . [facility] Phosphorylated Tau 217 (pTau -217) Reviewed date:12/18/2024 03:59:32 PM Interpretation: Performing Lab:[facility], [address] [facility], [place], Phone - [phone], Director - [facility] Notes/Report: Test(s) 673260-f-qsb235 was developed and its performance characteristics determined by [facility]. It has not been cleared or approved by the Food and Drug Administration. p-suy143 0.20 0.00-0.18 pg/mL Clinical cutoff value was established using samples from a patient cohort characterized with amyloid PET data. A p-rpb530 value of >0.18 is a reported surrogate marker for beta amyloid pathology, and can be used to facilitate biological identification of Alzheimer's disease (1). p-tck221 has also been used in clinical trials to monitor patients on anti-amyloid therapy (2,3). Test performed by [employer] chemiluminescent enzyme immunoassay (CLEIA). Values obtained with different methods cannot be used interchangeably. The validated limit of quantification is 0.06 pg/mL. Assay detection limit is 0.03 pg/mL. Footnotes 1. Armando Silva, et al. Diagnostic Accuracy of a Plasma Phosphorylated Tau 217 Immunoassay for Alzheimer Disease Pathology. LEE neurology (2023). 2. Armando Silva, et al. Differential roles of A42/40, p-ngf203 and p-gjr742 for Alzheimer's trial selection and disease monitoring. Nature medicine 28.12 (2021): 0112-5745. 3. Sean CLINTON, Myesha M, Kassi SC, et al. Association of Donanemab Treatment With Exploratory Plasma Biomarkers in Early Symptomatic Alzheimer Disease: A Secondary Analysis of the TRAILBLAZER-ALZ Randomized Clinical Trial . LEE Neurol. 202;79(12):1568-5719. Reason For Referral No Information Medications Medication [...] Active Super B Complex Acti ve Biotin 57682 MCG as directed Orally Active Glucosamine Chond [...] High Dose Seasonal, Quadrivatent Unknown 03/07/2023 Administered *Ldvcirzmh-Cezzyrv-Hroy Dose-65+ IM Intramuscular 04/01/2024 Administered *Jhfzyekvj-Hubbqxq-Fkcc Dose-65+ IM Intramuscular 03/03/2025 Administered *Influenza-Medicare-AS IM Intramuscular 04/14/2019 Adminis tered *Pneumococcal polysaccharide PPV23 IM Intramuscular 03/25/2017 Administered *PREVNAR 20 Unknown 05/10/2023 Administered *Td (adult) preservative free Unknown 07/06/2008 Administered *Td (adult) preservative free IM Intramuscular 08/12/2019 Administered COVID 19 (Pfizer 12+) Unknown 10/09/2021 Administered COVID COMIRNATY Pfizer Unknown 03/07/2023 Administered COVID-19 Pfizer BiValent Booster Unknown 03/16/2022 Administered XODOK-34-Nqcyuc Vaccine Unknown 07/13/2020 Administered SHOSR-63-Wmvwth Vaccine Unknown 08/03/2020 Administered NZEEO-03-Wsliih Vaccine Unknown 03/09/2021 Administered Influenza IM Intramuscular 06/22/2016 Administered Influenza (Fluad) Unknown 03/14/2021 Administered Influenza (Fluad) Unknown 03/16/2022 Administered Influenza Vaccine, Seasonal, Quadrivalent, Recombinant, Preservative Free Unknown 03/11/2020 Administered Wixzauybv-0965-57 Afluria-Single IM Intramuscular 04/17/2018 Administered Influenza-Afluria (IIV4) IM Intramuscular 03/25/2017 Admin istered Pneumococcal polysaccharide PCV 13 IM Intramuscular 02/21/2016 Administered RSV Unknown 05/10/2023 Administered Zoster Unknown 09/05/2011 Administered Social History [...] W/U Status Risk Notes Problem Secondary polycythemia (55423395) Secondary polycythemia (D75.1) Active confirmed Problem Diabetic renal disease (206693112) Type 2 diabetes mellitus with diabetic chronic kidney disease (E11.22) Active confirmed Problem Vitamin D deficiency (13116674) Vitamin D deficiency, unspecified (E55.9) Active confirmed Problem Morbid obesity (disorder) (150949127) Morbid (severe) obesity due to excess calories (E66.01) Active confirmed Problem Mixed hyperlipidemia (452847308) Mixed hyperlipidemia (E78.2) Active confirmed Problem Chronic alcoholism in remission (615687866) Alcohol dependence, in remission (F10.21) Active confirmed Problem Tobacco user (607586697) Nicotine dependence, cigarettes, in remission (F17.211) Active confirmed Problem Recurrent major depression in remission (45235471) Major depressive disorder, recurrent, in partial remission (F33.41) Active confirmed Problem Alzheimer's disease with late onset (038308288) Alzheimer's disease with late onset (G30.1) Active confirmed Problem Mild cognitive disorder (112053821) Mild cognitive impairment, so stated (G31.84) Active confirmed Problem Obstructive sleep apnea syndrome (79863929) Obstructive sleep apnea (adult) (pediatric) (G47.33) Active confirmed Problem 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) Aural vertigo, right ear (H81.311) Active confirmed Problem Sensorineural hearing loss of bilateral ears (disorder) (019406170) Sensorineural hearing loss, bilateral (H90.3) Active confirmed Problem Chronic kidney disease due to hypertension (106194881918235) Hypertensive chronic kidney disease with stage 1 through stage 4 chronic kidney disease, or unspecified chronic kidney disease (I12.9) Active confirmed Problem Atherosclerotic heart disease of [place] coronary artery without angina pectoris (232753221068789) Atherosclerotic heart disease of [place] coronary artery without angina pectoris (I25.10) Active confirmed Problem Angina co-occurrent and due to coronary arteriosclerosis (disorder) (30199691920658801) Atherosclerotic heart disease of [place] coronary artery with other forms of angina pectoris (I25.118) Active confirmed Problem Old myocardial infarction (7016901) Old myocardial infarction (I25.2) Active confirmed Problem Paroxysmal tachycardia (04475141) Paroxysmal tachycardia, unspecified (I47.9) Active confirmed Problem Atrial premature depolarization (581354787) Atrial premature depolarization (I49.1) Active confirmed Problem Ventricular premature depolarization (084418291) Ventricular premature depolarization (I49.3) Active confirmed Problem Gastro-esophageal reflux disease without esophagitis (202492035) Gastro-esophageal reflux disease without esophagitis (K21.9) Active confirmed Problem HALL - Nonalcoholic steatohepatitis (732647880) Nonalcoholic steatohepatitis (HALL) (K75.81) Active confirmed Problem Alopecia (94188018) Nonscarring hair loss, unspecified (L65.9) Active confirmed Problem Osteoarthritis of knee (544043281) Osteoarthritis of knee, unspecified (M17.9) Active confirmed Problem Cervical spondylosis without myelopathy (732701745) Other spondylosis with radiculopathy, cervical region (M47.22) Active confirmed Problem Lumbosacral spondylosis without myelopathy (62278920) Other spondylosis with radiculopathy, lumbar region (M47.26) Active confirmed Problem Lumbosacral spondylosis without myelopathy (91839382) Other spondylosis with radiculopathy, lumbosacral region (M47.27) Active confirmed Problem Displacement of lumbar intervertebral disc without myelopathy (35841360) Other intervertebral disc displacement, lumbar region (M51.26) Active confirmed Problem Cervicalgia (08990540) Cervicalgia (M54.2) Active confirmed Problem Sciatica (22291791) Sciatica, unspecified side (M54.30) Active confirmed Problem Age-related osteoporosis (998860795) Age-related osteoporosis without current pathological fracture (M81.0) Active confirmed Problem Chronic kidney disease stage 2 (662267992) Chronic kidney disease, stage 2 (mild) (N18.2) Active confirmed Problem Neurogenic claudication (699075180) Spinal stenosis, lumbar region with neurogenic claudication (M48.062) Active confirmed Problem Chronic kidney disease stage 3A (disorder) (950826226) Chronic kidney disease, stage 3a (N18.31) Active confirmed Problem Body mass index 30.00 to 34.99 (361513401589394) Body mass index [BMI] 31.0-31.9, adult (Z68.31) Active confirmed Problem Personal history of adenomatous and serrated colon polyps (Z86.0101) Active confirmed Problem Age-related nuclear cataract of right eye (225911070928661) Age-related nuclear cataract, right eye (H25.11) Problem resolved confirmed Problem Age-related nuclear cataract of left eye (661658915139532) Age-related nuclear cataract, left eye (H25.12) Problem resolved confirmed Problem COVID19 DANIELLE-Viru s Identified (U07.1) Problem resolved confirmed Problem Body mass index 30.00 to 34.99 (779134525193702) Body mass index [BMI] 34.0-34.9, adult (Z68.34) Problem resolved confirmed Vital Signs Heart Rate 63 /min 03/03/2025 Temperature 96.0 degrees Fahrenheit 03/03/2025 Blood pressure diastolic 56 mm Hg 03/03/2025 Oximetry 96 % 03/03/2025 Height 61 in 03/03/2025 Blood pressure systolic 110 mm Hg 03/03/2025 Weight 170 lbs 03/03/2025 BMI 32.12 kg/m2 03/03/2025 Encounters Encounter Location Date Provider Diagnosis Felicitas Mckeon MD [address] [id number] 06/29/2024 Felicitas Mckeon 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.22 ; Hypertensive chronic kidney disease with stage 1 through stage 4 chronic kidney disease, or unspecified chronic kidney disease I12.9 ; Chronic kidney disease, stage 3a N18.31 ; Major depressive disorder, recurrent, in partial remission F33.41 ; Atherosclerotic heart disease of [place] coronary artery without angina pectoris I25.10 ; Mixed hyperlipidemia E78.2 ; Obstructive sleep apnea (adult) (pediatric) G47.33 ; Age-related osteoporosis without current pathological fracture M81.0 ; Nonalcoholic steatohepatitis (HALL) K75.81 ; Alcohol dependence, in remission F10.21 ; Gastro-esophageal reflux disease without esophagitis K21.9 ; Nicotine dependence, cigarettes, in remission F17.211 and Vitamin D deficiency, unspecified E55.9 Feilcitas Mckeon MD [address] [id number] 07/28/2024 Julianna Tracy Acute bronchitis due to other specified organisms J20.8 ; Acute cough R05.1 and Acute upper respiratory infection, unspecified J06.9 Felicitas Mckeon MD [address] [id number] 08/03/2024 Julianna Tracy Acute bronchitis due to other specified organisms J20.8 and Acute cough R05.1 Felicitas Mckeon MD [address] [id number] 09/17/2024 Felicitas Mckeon Encounter for genera l [...] remission F33.41 ; Atherosclerotic heart disease of [place] coronary artery without angina pectoris I25.10 ; [...] hearing loss, bilateral H90.3 Felicitas Mckeon MD [address] [id number] 12/08/2024 Felicitas Mckeon Mild cognitive impairment of uncertain or unknown etiology G31.84 ; Pain in right knee M25.561 and Vitamin D deficiency, unspecified E55.9 Felicitas Mckeon MD [address] [id number] 03/03/2025 Felicitas Mckeon Hypertensive chronic kidney disease [...] remission F10.21 ; Atherosclerotic heart disease of [place] coronary artery without angina pectoris I25.10 ; Mixed hyperlipidemia E78.2 ; Nonalcoholic steatohepatitis (HALL) K75.81 ; Gastro-esophageal reflux disease without esophagitis K21.9 ; Nicotine dependence, cigarettes, in remission F17.211 ; Vitamin D deficiency, unspecified E55.9 ; Encounter for immunization Z23 ; Osteoarthritis of knee, unspecified M17.9 and Sciatica, unspecified side M54.30 Felicitas Mckeon MD [address] [id number] 07/01/2024 Felicitas Mckeon MD [address] [id number] 07/23/2024 Felicitas Mckeon Influenza due to identified novel influenza A virus with other respiratory manifestations J09.X2 Felicitas Mckeon MD [address] [id number] 07/27/2024 Felicitas Mckeon Influenza due to identified novel influenza A virus with other respiratory manifestations J09.X2 Felicitas Mckeon MD [address] [id number] 07/27/2024 Felicitas Mckeon MD [address] [id number] 07/28/2024 Felicitas Mckeon MD [address] [id number] 07/31/2024 Felicitas Mckeon MD [address] [id number] 10/12/2024 Felicitas Mckeon MD [address] [id number] 11/04/2024 Felicitas Mckeon MD [address] [id number] 12/03/2024 Felicitas Mckeon 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.22 Felicitas Mckeon MD [address] [id number] 12/11/2024 Felicitas Mckeon MD [address] [place] [address], [place] [id number] 12/18/2024 Felicitas Mckeon MD [address] [place] [address], [place] [id number] 12/22/2024 Felicitas Mckeon MD [address] [place] [address], [place] [id number] 12/23/2024 Felicitas Mckeon MD [address] [place] [address], [place] [id number] 01/04/2025 Felicitas Mckeon MD [address] [place] [address], [place] [id number] 03/10/2025 Felicitas Mckeon MD [address] [place] [address], [place] [id number] 03/16/2025 Felicitas Mckeon MD [address] [place] [address], [place] [id number] 03/29/2025 Felicitas Mckeon MD [address] [facility] [address] [place] [address], [place] [id number] 01/04/2025 Felicitas Mckeon Assessments Encounter Date Diagnosis (ICD Code) Assessment Notes Treatment Notes Treatment Clinical Notes Section Notes 06/29/2024 Type 2 diabetes mellitus with diabetic chronic kidney disease (ICD-10 - E11.22) Controlled with current medical therapy. Continue same. She does not wish to have GLP therapy. 06/29/2024 Hypertensive chronic kidney disease with stage 1 through stage 4 chronic kidney disease, or unspecified chronic kidney disease (ICD-10 - I12.9) Stable at present. Continue current medical therapy 07/23/2024 Influenza due to identified novel influenza A virus with other respiratory manifestations (ICD-10 - J09.X2) 07/27/2024 Influenza due to identified novel influenza A virus with other respiratory manifestations (ICD-10 - J09.X2) 07/28/2024 Acute bronchitis due to other specified [...] azithromycin to assist in managing suspected bronchitis. 09/17/2024 Encounter for general adult medical examination without abnormal findings (ICD-10 - Z00.00) General healthcare up-to-date. Check routine labs. She already has a healthcare proxy 09/17/2024 Hypertensive chronic kidney disease with stage 1 through stage 4 chronic kidney disease, or unspecified chronic kidney disease (ICD-10 - I12.9) Stable at present. She is at a level that would be consistent with the [employer] mine trial. Continue current therapy 08/03/2024 Acute bronchitis due to other specified [...] diabetic chronic kidney disease (ICD-10 - E11.22) 12/08/2024 Mild cognitive impairment of uncertain or unknown etiology (ICD-10 - G31.84) MOCA performed in office and scored 22/30 which warrants further testing. Recommend Petscan and MRI and she would like to proceed with further testing of reversal and treatable causes of cognitive impairment. 12/08/2024 Pain in right knee (ICD-10 - M25.561) She has been having pain to the inner medial part of the right knee for the past month. No recent trauma or deformities to the right knee. May be arthritis in nature will further evaluate starting with X Ray. 03/03/2025 Hypertensive chronic kidney disease with stage 1 through stage 4 chronic kidney disease, or unspecified chronic kidney disease (ICD-10 - I12.9) Blood pressure measured at 110/56. No current issues reported. 03/03/2025 Type 2 diabetes mellitus with diabetic chronic kidney disease (ICD-10 - E11.22) Diabetes well controlled with A1C 6.3. No serious diabetic symptoms reported. Farxiga is maintaining control. - Continue Farxiga as prescribed. - Monitor A1C levels. 03/03/2025 Major depressive disorder, recurrent, in partial [...] worsen or new symptoms of concern began 09/17/2024 Type 2 diabetes mellitus with diabetic chronic kidney disease (ICD-10 - E11.22) Controlled with current medical therapy. Continue same. She would benefit from GLP therapy but she does not wish to pursue GLP therapy. 07/28/2024 Acute upper respiratory infection, unspecified (ICD-10 - J06.9) Given patient's persistent symptoms despite Tamiflu and Medrol use, did obtain an updated respiratory panel to ensure she does not have any additional underlying respiratory illnesses. 06/29/2024 Chronic kidney disease, stage 3a (ICD-10 - N18.31) Stable estimated GFR in the 50s. Recheck status. 06/29/2024 Major depressive disorder, recurrent, in partial remission (ICD-10 - F33.41) Stable with current medical therapy and periodic follow-up with behavioral health 09/17/2024 Chronic kidney disease, stage 3a (ICD-10 - N18.31) Her GFR had decreased into the 50s. Can recheck status to verify stability versus progression. 03/03/2025 Age-related osteoporosis without current pathological fracture (ICD-10 - M81.0) Osteoporosis diagnosed. Prolia recommended due to kidney safety. Patient expressed concern about cost. - Recommended Prolia injection for osteoporosis. - Discussed alternative options including infusions. 03/03/2025 Obstructive sleep apnea (adult) (pediatric) (ICD-10 - G47.33) She is not using her CPAP. Recommend consistent use of CPAP 09/17/2024 Major depressive disorder, recurrent, in partial remission (ICD-10 - F33.41) She has follow-up with behavioral health and her medical therapy was adjusted due to increased stress. She feels she is doing a bit better. 06/29/2024 Atherosclerotic heart disease of [place] coronary artery without angina pectoris (ICD-10 - I25.10) Stable at present. Continue control of comorbidities of hypertension diabetes and hyperlipidemia 06/29/2024 Mixed hyperlipidemia (ICD-10 - E78.2) Controlled with current medical therapy. Continue same. 09/17/2024 Atherosclerotic heart disease of [place] coronary artery without angina pectoris (ICD-10 - I25.10) Stable at present without any active symptoms. Continue control of comorbidities of hypertension and hyperlipidemia and diabetes 03/03/2025 Alzheimer's disease with late onset (ICD-10 - G30.1) Tau protein elevated. MoCA score 22. PET scan centiloid score 11.66, low abnormality. Diagnosis of mild Alzheimer's disease. - Monitor cognitive status. - No medication indicated at current stage. 03/03/2025 Dementia in other diseases classified elsewhere, mild, without behavioral disturbance, psychotic disturbance, mood disturbance, and anxiety (ICD-10 - F02.A0) Tau protein elevated. MoCA score 22. PET scan centiloid score 11.66, low abnormality. Diagnosis of mild Alzheimer's disease. - Monitor cognitive status. - No medication indicated at current stage. 09/17/2024 Age-related osteoporosis without current pathological fracture (ICD-10 - M81.0) Recommend medical therapy. 06/29/2024 Obstructive sleep apnea (adult) (pediatric) (ICD-10 - G47.33) She is not consistently using her CPAP. 06/29/2024 Age-related osteoporosis without current pathological fracture (ICD-10 - M81.0) Stable at present. Her bone density has decreased by 4%. She cannot afford medical therapy therefore continue weightbearing exercise. 09/17/2024 Obstructive sleep apnea (adult) (pediatric) (ICD-10 - G47.33) She is not using her CPAP. Recommend consistent use of CPAP 03/03/2025 Chronic kidney disease, stage 2 (mild) (ICD-10 - N18.2) Kidney function is 66, stage 2 chronic kidney disease. Improved from stage 3. No blood or protein in urine. - Continue Farxiga to support kidney health. - Monitor kidney function. 03/03/2025 Morbid (severe) obesity due to excess calories (ICD-10 - E66.01) Body mass index is 32, classified as morbid obesity. Obesity impacts diabetes, blood pressure, and heart health. - Recommended calorie-restricted diet. - Encouraged regular exercise, including walking. 09/17/2024 Nonalcoholic steatohepatitis (HALL) (ICD-10 - K75.81) [...] verify that there is no early fibrosis 06/29/2024 Alcohol dependence, in remission (ICD-10 - F10.21) Effectively remains in remission. 09/17/2024 Alcohol dependence, in remission (ICD-10 - F10.21) Effectively remains in remission. 03/03/2025 Alcohol dependence, in remission (ICD-10 - F10.21) Effectively remains in remission. 03/03/2025 Atherosclerotic heart disease of [place] coronary artery without angina pectoris (ICD-10 - I25.10) Stable at present without any active symptoms. Continue control of comorbidities of hypertension and hyperlipidemia and diabetes 09/17/2024 Mixed hyperlipidemia (ICD-10 - E78.2) Stable on prior labs as reviewed. Recheck status and continue current medical therapy 06/29/2024 Gastro-esophageal reflux disease without esophagitis (ICD-10 - K21.9) Symptomatically stable at present 06/29/2024 Nicotine dependence, cigarettes, in remission (ICD-10 - F17.211) Remains in remission 09/17/2024 Gastro-esophageal reflux disease without esophagitis (ICD-10 - K21.9) Symptomatically stable at present 03/03/2025 Mixed hyperlipidemia (ICD-10 - E78.2) Stable on prior labs as reviewed. Recheck status and continue current medical therapy 03/03/2025 Nonalcoholic steatohepatitis (HALL) (ICD-10 - K75.81) Stable on prior labs as reviewed. Her ALT has normalized. Her fib 4 index is slightly elevated. Her elastography does not show any signs of fibrosis. 06/29/2024 Vitamin D deficiency, unspecified (ICD-10 - E55.9) Stable on prior labs as reviewed. Recheck status and would consider vitamin D supplementation for goal level of 30+ and if possible 50+ 09/17/2024 Personal history of adenomatous and serrated colon polyps (ICD-10 - Z86.0101) Up-to-date on colonoscopy 09/17/2024 Nicotine dependence, cigarettes, in remission (ICD-10 - F17.211) Remains in remission 03/03/2025 Gastro-esophageal reflux disease without esophagitis (ICD-10 - K21.9) Symptomatically stable at present 03/03/2025 Nicotine dependence, cigarettes, in remission (ICD-10 - F17.211) Remains in remission 09/17/2024 Vitamin D deficiency, unspecified (ICD-10 - E55.9) Stable on prior labs as reviewed. Recheck status and would consider vitamin D supplementation for goal level of 30+ and if possible 50+ 09/17/2024 Encounter for screening for malignant neoplasm of colon (ICD-10 - Z12.11) Up-to-date on colon cancer screening 03/03/2025 Vitamin D deficiency, unspecified (ICD-10 - E55.9) Vitamin D level was 68. Patient continues vitamin D supplementation. - Continue vitamin D supplementation. 03/03/2025 Encounter for immunization (ICD-10 - Z23) 09/17/2024 Encounter for screening mammogram for malignant neoplasm of breast (ICD-10 - Z12.31) Up-to-date on breast cancer screening 09/17/2024 Encounter for screening for osteoporosis (ICD-10 - Z13.820) Up-to-date on osteoporosis screening 03/03/2025 Osteoarthritis of knee, unspecified (ICD-10 - M17.9) Arthritis in knees reported by patient. Limits ability to perform formal exercise. - Encouraged self-care and physical activity as tolerated. 03/03/2025 Sciatica, unspecified side (ICD-10 - M54.30) Persistent sciatica for over a year and a half. Received one injection with no relief. Patient declined further injections. - Discussed option for additional injections for sciatica. - Encouraged exercise to strengthen back. 09/17/2024 Asymptomatic menopausal state (ICD-10 - Z78.0) 09/17/2024 Encounter for screening for cardiovascular disorders [...] TOXIN 02/03/2020 URINALYSIS 08/11/2020 VITAMIN D, 25-HYDROXY 08/11/2020 VITAMIN D, 25-HYDROXY 08/17/2021 HOLTER MONITOR, 7 DAYS, APPLICATION 11/02 HOLTER MONITOR, 7 DAYS, INTERPRETATION 0 12/31/2023 Urinalysis, Complete-[id number] 03/03/2025 Albumin/Creatinine Ratio,Urine-[id number] 25OH VITAMIN D 11/18/2017 COMPLETE CBC WITH DIFF 11/18/2017 COMPLETE URINALYSIS 11/18/2017 COMPREHENSIVE METABOLIC PANEL 11/18/2017 LIPID PANEL W REFLEX TO DLDL 11/18/2017 URINARY MICROALBUMIN 11/18/2017 Future Test Test Name Order Date Delia Screening Digital 11/01/2020 Next Appt Details Provider Name:Felicitas Mckeon , 06/07/2025 01:30:00 PM, [address] [place] [address], [phone], Provider Name:Josemanueltez Mike , 06/29/2025 02:00:00 PM, [address] [place] [address], [phone], Provider Name:Felicitas Mckeon , 09/27/2025 01:00:00 PM, [address] [place] [address], [id number], Insurance Providers Payer Name Payer Address Payer Phone Subscriber Number Group Number Insured Name Patient Relationship to Insured Coverage Start Date Coverage End Date MEDICARE [address] [place] [phone] [id number] Amanda Oseguera Self - patient is the insured [facility] [employer] [address] [place] [address] [phone] [id number] Amanda Oseguera Self - patient is the insured Medical (General) History Medical History History ICD Code Nondisplaced fracture of body of left ta sobia, sequela Alcohol dependence, uncomplicated Atherosclerotic heart diseas e of [place] coronary artery without angina pectoris I25.10 Old [...]
--- OUTSIDE RECORDS SUMMARY | 2025-05-05 12:01 | XMS_ITS | Patient Health Record ---
Author Organization [facility] Address [address] [place] [id number] Care Team Providers Care Intermediate Project Manager Name Role Phone LEONIE HERNANDEZ MD Primary Care Provider Unavail able Susan Mendoza Unavailable [phone] Allergies Allergen (clinical drug ingredient) Drug/Non Drug Allergy documented on EMR Reaction Allergy Type Onset Date Status Substance with sulfonamide structure and antibacterial mechanism of action (substance) SULFA (uncoded) Unknown Allergy Active Reason For Referral No Information Medications Medication SIG (Take, Route, Frequency, Duration) Notes Start Date End Date Status Metoprolol Succinate ER 25 MG ER 1 ORAL daily; Duration: -3 [facility] 10/06/2012 Active Fish Oil 1200MG 1 ORAL daily; Durati on: [facility] 10/06/2012 Active Lisinopril 2.5MG 1 ORAL daily; Durati on: - [facility] 10/06/2012 Active Vitamin B12 100 MCG Orally Active ALPRAZolam 0.50MG 1 ORAL twice daily; Duration: 10 [facility] 10/06/2012 Active Estrace 0.1 MG/GM 1 GRAM Vaginal TWICE A WEEK; Duration: 365 days For PE's 10/07/2014 Active Aspirin EC 81MG 1 ORAL daily; Durati on: - [facility] 10/06/2012 Active Wellbutrin XL 1 tablet in the morn ing Orally Once a day Active PARoxetine HCl 20 MG 1 tablet in the mor rayna Orally Once a day Active Cinnamon 500 MG 2 Orally DAILY Active Atorvastatin Calcium 80 MG 1 tablet Oral ly Once a day Active Vitamin C 500MG 1 ORAL twice daily; Duration: -3 [facility] 10/06/2012 Active Milk Thistle 1000 MG Orally Active Vitamin D3 1000 IU ORAL daily; Duration : - [facility] 10/06/2012 Active Turmeric Curcumin 500 MG Orally Active Multivitamins 1 ORAL daily; Durati on: -3 [facility] 10/06/2012 Active Rosuvastatin Calcium 20 MG 1 tablet Oral ly Once a day Active NexIUM 50 MG 1 ORAL prn [facility] 10/06/2012 Activ e Super B Complex Acti ve buPROPion HCl ER (SR) 200 MG 1 tablet Orally Twice a day Active Problems Problem Type SNOMED Code ICD Code Onset Dates Problem Status W/U Status Risk Notes Problem Postmenopausal atrophic vaginitis (14949476) Postmenopausal atrophic vaginitis (N95.2) Active confirmed Problem Age-related osteoporosis (108084632) Age-related osteoporosis without current pathological fracture (M81.0) Active confirmed Problem Hyperlipidemia (29706042) Other and unspecified hyperlipidemia (272.4) Active confirmed Major Problem Depressive disorder (15650824) Depressive disorder, not elsewhere classified (311) Active confirmed Major Problem Benign essential hypertension (4371460) Essential hypertension, benign (401.1) Active confirmed Major Problem Acute myocardial infarction (disorder) (22921816) Acute myocardial infarction, unspecified site (410.9) Active confirmed Diag Problem Chronic ischemic heart disease (751030378) Unspecified chronic ischemic heart disease (414.9) Active confirmed Major Problem Osteoporosis (20771265) Unspecified osteoporosis (733.00) Active confirmed Diag Problem Gynecological examination normal (525194667688336) Routine gynecological examination (V72.31) Active confirmed Problem Screening for malignant neoplasm of colon (646754510) Special screening for malignant neoplasms, colon (V76.51) [...] MEDICARE [address] [place] [id number] [phone] [id number] SHARON TRINIDAD Self - patient is the insured MEDEX [address] [place] [address] [id number] SHARON TRINIDAD Self - patient is the insured Medical (General) History Medical History History ICD Code Acute myocardial infarction, unspecified site 410.9 Unspecified osteoporosis 733.00 Unspecified chronic ischemic heart disea se 414.9 Depressive disorder, not elsewhere class ified 311 Other and unspecified hyperlipidemia 272 .4 Essential hypertension, benign 401.1 Surgical History Surgery Date(Month/Year) Cholecystectomy Colonoscopy Colon Resection Right Ankle Fracture [place] [facility] Hospitalization History Reason Date(Month/Year) See Surgical Hx
== END 2025-05-05 10:57 | disposition home or self-care (01) ==
LOC: HO.HOS 10:29
PROVIDERS: Visit Provider Orthopaedic Surgery
DX: M54.50 Low back pain, unspecified (principal); M79.605 Pain in left leg; M17.0 Bilateral primary osteoarthritis of knee; M25.561 Pain in right knee; M25.562 Pain in left knee
CPT/HCPCS: 20610; 99213

== ENCOUNTER → 2025-05-05 10:28 | Outpatient (BNVA) | payer MEDICARE, SELFPAY | PROVIDERS: Visit Provider Orthopaedic Surgery | DX: M17.0 Bilateral primary osteoarthritis of knee (principal); M25.561 Pain in right knee; M25.562 Pain in left knee; M54.50 Low back pain, unspecified; M79.605 Pain in left leg | CPT/HCPCS: 20610; 99212; J2003; J7318 ==